=== PATIENT | female | born 1970 | race Caucasian/White ===

== ENCOUNTER 2023-01-26 07:42 | Emergency (ER) | payer OTHER, MEDICARE, MEDICAID, SELFPAY ==
--- NOTE | ~2023-01-26 | XR_ITS ---
EXAMINATION: XR RIBS, RIGHT CLINICAL INFORMATION: Trauma, right anterior rib pain COMPARISON: None TECHNIQUE: Frontal view chest and 3 views of the right ribs are obtained for a total of 4 views. FINDINGS: There is minimally displaced fracture at the anterior right 9th rib. No destructive process. Remainder of the ribs appear intact. There is prior median sternotomy with mediastinal clips and sternotomy wires. The heart is normal in size. The vascularity is normal. The lungs are clear. There is no pneumothorax, pleural reaction, or effusion. The hilar and mediastinal contours are normal. XR/XR ribs RT min 3V w CXR1V IMPRESSION: 1. Fracture anterior right 9th rib. 2. Lungs clear. No pneumothorax, pleural reaction, or effusion.
--- NOTE | ~2023-01-26 | CT_ITS ---
EXAMINATION: CT CHEST WITH CONTRAST CT ABDOMEN AND PELVIS WITH CONTRAST CLINICAL INFORMATION: Trauma, rib fracture. Assess for thoracoabdominal injury. COMPARISON: Right rib radiographs 01/26/2023 TECHNIQUE: CT chest, abdomen, and pelvis are performed using 85 mL Omnipaque 350 intravenous contrast. Coronal and sagittal reformatted images are generated on the CT workstation and uploaded to PACS. In addition, maximum intensity projection images through the lungs are also obtained on the CT workstation and uploaded to PACS. Oral contrast: no. This CT examination was performed using dose optimization techniques as appropriate, variously including the following: *Automated exposure control *Adjustment of mA and/or kV according to patient size (this includes techniques or standardized protocols for targeted exams where dose is matched to indication/reason for exam; i.e. extremities or head) *Use of iterative reconstruction technique DLP: 199 mGy-cm (chest) DLP: 425 mGy-cm (abdomen/pelvis) FINDINGS: CT CHEST LUNGS/PLEURA: No pneumothorax, pleural reaction, pulmonary contusion, or pleural effusion. The central airways are clear and there is no endobronchial lesion or bronchiectasis. Left lung shows no mass or nodule. Right lung has 3 small nodules under 4 mm: Lateral apex series 5/84, posterior lateral upper lobe series 5/151, and posterior lateral superior segment lower lobe series 5/257. There is an irregular density average dimension under 7 mm posterior upper lobe series 5/162 which appears linear reticulated on the coronal and sagittal reformatted images, possibly scarring or atelectasis. MEDIASTINUM: No mediastinal hematoma or pneumomediastinum. Thoracic aorta normal in caliber. No dissection. No pericardial effusion. CORONARY ARTERY CALCIFICATION: Visualized. Prior median sternotomy. AXILLA: No lymphadenopathy. No subcutaneous emphysema. FINDINGS: CT ABDOMEN AND PELVIS WITH CONTRAST LIVER, GALLBLADDER, AND BILIARY TREE: Liver is within normal size and smooth in contour and homogeneous. No acute traumatic abnormality. No intrahepatic ductal dilatation. The gallbladder is unremarkable with no evidence of radiopaque gallstones, gallbladder wall thickening, or obvious pericholecystic inflammatory changes. PANCREAS: Unremarkable. SPLEEN: Unremarkable. ADRENAL GLANDS: Unremarkable. KIDNEYS AND URETERS: The kidneys enhance symmetrically of normal size. There is no hydronephrosis, hydroureter, or perinephric stranding. There are some scattered nonobstructing calcifications in both renal sinuses, likely related to the vasculature rather than collecting system. BLADDER: Unremarkable. GASTROINTESTINAL TRACT: No ascites or fluid collection. No free air. No bowel obstruction. Moderate stool throughout the colon. Normal appendix. ABDOMINAL WALL: No significant hernia is appreciated. LYMPH NODES: No lymphadenopathy. VASCULAR: Atherosclerotic calcifications. No acute vascular abnormality. PELVIC VISCERA: No mass or ascites. IUD present. OSSEOUS STRUCTURES: The anterior right 9th rib fracture noted on plain film is not appreciated on the CT images. The remainder of the skeleton shows no acute abnormality. There has been prior median sternotomy. CT/CT abdomen pelvis w IV con IMPRESSION: -No acute intrathoracic or intraabdominal traumatic abnormality. -The right anterior 9th rib fracture noted on plain film is not well appreciated on CT images. Remainder skeleton unremarkable. -Small nodules right lung under 4 mm. Density under 7 mm average dimension posterior right upper lobe, possibly scarring or atelectasis. Fleischner guidelines below. Reference: The Fleischner Society recommendations for management of incidentally detected pulmonary nodules in adults age 35 and greater are based on average nodule size and patient risk category. The recommendations do not apply to lung cancer screening, patients with immunosuppression, or patients with known primary cancer. Multiple solid nodules average size 6-8 mm: Low Risk Patient: CT at 3-6 months; then consider CT at 18-24 months. High Risk Patient: CT at 3-6 months; then CT at 18-24 months.
[2023-01-26 07:47] VITALS: BP 196/71; PULSE 69; RESP 16; TEMP 36.1; O2SAT 98; BMI 22.8
--- NOTE | 2023-01-26 08:09 | PC.NURSE ---
pt is a/o x 4 no sob/melinda noted speaks in full sentences. lungs - cta. heart sounds regular. abd soft and non-tender. bxs + x 4 quads. pt aware of plan of care.
[2023-01-26 09:32] LABS: MANUAL DIFF FLAG NO
[2023-01-26 09:36] LABS: Basophils Absolute Auto 0.1 X10*3/uL (0.0-0.2); Basophils Percent Auto 0.9 % (0-2); Eosinophils Absolute Auto 0.1 X10*3/uL (0.0-0.4); Eosinophils Percent Auto 0.8 % (0-4); Hematocrit 53.1 % (37.0-47.0); Hemoglobin 17.7 g/dl (12.0-16.0); Imm Gran Abs Auto 0.03 X10*3/uL (0.00-0.03); Imm Gran Pct Auto 0.3 % (0.0-0.4); Lymphocytes Absolute Auto 1.7 X10*3/uL (1.2-4.9); Lymphocytes Percent Auto 17.9 % (20-40); Mean Corpuscular HGB Conc 33.3 g/dl (31.0-35.0); Mean Corpuscular Hemoglobin 30.8 pg (27.0-33.0); Mean Corpuscular Volume 92.5 fL (80.0-98.0); Mean Platelet Volume 10.6 fL (9.4-12.3); Monocytes Absolute Auto 0.6 X10*3/uL (0.1-1.2); Monocytes Percent Auto 6.8 % (2-11); Neutrophils Absolute Auto 6.9 x10*3/uL (2.0-8.3); Neutrophils Percent Auto 73.3 % (45-73); Platelet Count 240 X10*3/uL (160-400); Red Blood Count 5.74 X10*6/uL (4.20-5.50); Red Cell Distribution Width 13.6 % (11.0-16.0); White Blood Count 9.5 X10*3/uL (4.8-10.8)
[2023-01-26 09:45] LABS: INTERNATIONAL NORM RATIO 0.9 (0.9-1.1); Prothrombin Time 10.4 SEC (10.0-13.1)
[2023-01-26] MEDS: traMADoL HCL 50 MG TABLET PO (09:49)
[2023-01-26] MEDS: Lidocaine 4 % Patch ADH..PATCH 1 PATCH TRANSDERMA (09:49)
[2023-01-26] MEDS: 0.9 % Sodium Chloride 500 ML 999 ML IV (09:50)
[2023-01-26 09:51] LABS: Alanine Aminotransferase 34 U/L (0-31); Albumin Level 4.3 g/dL (3.5-5.0); Alkaline Phosphatase 131 U/L (39-117); Anion Gap 14 (12-20); Aspartate Amino Transferase 38 U/L (5-31); Bilirubin Direct 0.2 mg/dL (0.0-0.5); Bilirubin Total 0.6 mg/dL (0.0-1.0); Blood Urea Nitrogen 8 mg/dL (9-16); Calcium 9.3 mg/dL (8.4-10.2); Carbon Dioxide 29 mmol/L (22-29); Chloride 107 mmol/L (96-108); Estimated Glomerular Filt Rate > 60; Lipase 42 U/L (8-78); Potassium 4.6 mmol/L (3.3-5.1); Sodium 145 mmol/L (135-145); Total Protein 7.3 g/dL (6.5-8.0)
[2023-01-26 09:55] LABS: Glucose Random 59 mg/dL (60-115)
[2023-01-26 09:56] VITALS: BP 184/68; PULSE 67; RESP 16; TEMP 36.6; O2SAT 96
--- NOTE | 2023-01-26 10:00 | ED_ITS ---
HPI - General Adult General Chief complaint: General Medical Stated complaint: rib inj Time Seen by Provider: 01/26/23 08:22 Source: patient Mode of arrival: ambulatory History of Present Illness HPI narrative: 52-year-old female with past medical history of CAD, renal/liver failure, CHF, presenting to the ED complaining right-sided lower anterior rib pain s/p leaning over the back of a recliner and feeling ribs roll 3 days ago. Reports was on tippy toes and ribs were against hard part of recliner. Denies direct trauma/fall. Reports increasing pain with palpation, movement, and breathing. Reports SOB secondary to pain. Denies nausea/vomiting, abdominal pain. Denies taking anticoagulation Onset (ago): day(s) Related Data Previous Rx's Medication Instructions Recorded lidocaine 5 % topical patch 1 patch topical DAILY PRN pain #30 01/26/23 (Lidoderm) ea tramadol 50 mg tablet 50 mg PO Q8H PRN pain, severe #9 01/26/23 tabs Allergies Allergy/AdvReac Type Severity Reaction Status Date / Time ciprofloxacin [From CIPRO] Allergy Mild SWELLING Unverified 08/16/20 17:53 Penicillins [PENICILLINS] Allergy Mild SWELLING Unverified 08/16/20 17:53 Sulfa (Sulfonamide Allergy Mild SWELLING Unverified 08/16/20 17:53 Antibiotics) [SULFA(SULFONAMIDE ANTIBIOTICS)] metronidazole [Flagyl] Allergy Unknown Swelling Verified 01/26/23 07:46 penicillin G Allergy Unknown Rash Verified 01/26/23 07:46 penicillin V Allergy Unknown Rash Verified 01/26/23 07:46 sulfacetamide Allergy Unknown Rash Verified 01/26/23 07:46 From FLAGYL Allergy Mild SWELLING Uncoded 08/16/20 17:53 Review of Systems Review of Systems: Constitutional: No Fever, No Chills, No Fatigue, No Malaise ENT/Mouth: No Hearing loss, No Ear Pain, No Nasal Congestion, No sore throat, No Rhinorrhea, No Swallowing Difficulty Eyes: No Eye Pain, No Swelling, No Redness, No Vision Changes Cardiovascular:+ Chest wall Pain, + SOB, No Dyspnea on Exertion, No Orthopnea, No Edema, No Palpitations Respiratory: No Cough, No Sputum, No Dyspnea Gastrointestinal: No Nausea, No Vomiting, No Diarrhea, No Constipation, No Abdominal pain Genitourinary: No Dysuria, No Urinary Frequency, No Hematuria, No Flank Pain, No Urinary Flow Changes, No Hesitancy Musculoskeletal: No joint pain, No Myalgias, No Joint Swelling Skin: No Skin Lesions, No rash Neuro: No Weakness, No Dizziness, No Headache Yes all other systems are reviewed and are negative Constitutional: Constitutional: Reports as per [facility] Past Medical History Attestation statement: The following information was validated with the patient. Social History Social History Alcohol intake: never Smoked in Last 30 Days: No Use of substances other than those prescribed or required for medical reasons: No Advance Directives: Yes Advance Directives Information Provided: No Advance Directives on File: No Physical Exam ED Vital Signs: Vital Signs - 24 hr 01/26/23 07:47 01/26/23 09:56 01/26/23 11:22 Temperature 97.0 F 97.9 F Pulse Rate 69 67 68 Respiratory Rate 16 16 16 Blood Pressure 196/71 H 184/68 H 154/61 H Pulse Oximetry 98 96 94 Oxygen Delivery Method Room Air Room Air Room Air BMI result Body Mass Index 22.8 Const Other: in pain General: cooperative and no acute distress Orientation/consciousness: patient oriented x3 Limitations: no limitations HENMT Head: Yes normal to inspection and Yes atraumatic Ears: hearing grossly normal bilaterally General nose exam: Normal external nose present Face and sinus: Yes normal facial exam Eyes General: appearance normal, both eyes and all related structures EOM: EOMs intact bilaterally Neck Neck: Yes normal visual inspection and Yes no meningeal signs Chest Other: + tenderness to palpation to right anterior lateral lower ribs reproducing subjective complaint. No flail chest. No crepitus. No ecchymosis/erythema Chest palpation & inspection: normal inspection of the chest, no crepitus and tenderness Resp Effort & Inspection: normal respiratory effort and no respiratory distress Auscultation: clear to auscultation bilaterally, no crackles, no rhonchi and no wheezes Cardio Rate: regular rate Heart sounds: S1 normal heart sound present and S2 normal heart sound present GI Inspection: Yes normal to inspection Palpation (GI): Soft to palpation, Tenderness to palpation present (GI) in the epigastrum and in the RUQ; with no rebound tenderness, no guarding and not rigid General: Yes no CVA tenderness Back/Spine/Pelvis Back: no CVA tenderness Skin Rashes: no rashes Wounds: no wounds Neuro General: patient oriented x3, tone normal and no meningeal signs Gait exam (Neuro): Normal gait present Extrem General: Yes normal to inspection Course Course Course Narrative: XR ribs RT min 3V w CXR1V IMPRESSION: 1. Fracture anterior right 9th rib. 2. Lungs clear. No pneumothorax, pleural reaction, or effusion. ? -no leukocytosis. Hemoconcentrated. Hypoglycemic to 59 > patient given p.o. juice and crackers. Mild transaminitis 1131--CT chest w IV con/CT abdomen pelvis w IV con IMPRESSION: -No acute intrathoracic or intraabdominal traumatic abnormality. ? -The right anterior 9th rib fracture noted on plain film is not well appreciated on CT images. Remainder skeleton unremarkable. ? -Small nodules right lung under 4 mm.? Density under 7 mm average dimension posterior right upper lobe, possibly scarring or atelectasis. ?Fleischner guidelines below. ? >1132--on re-evaluation patient reports mild symptomatic improvement. Results discussed with patient including worrisome signs and symptoms and strict return precautions, and when to return to the emergency department. They verbalized understanding and feel safe for discharge at this time. Medications Administered Discontinued Medications Generic Name Dose Route Start Last Admin Trade Name Freq PRN Reason Stop Dose Admin Dextrose 25 gm 01/26/23 09:55 01/26/23 11:06 Dextrose 50 % 25 Gm/50 Ml Syringe IVPUSH 01/26/23 09:56 Not Given ONCE ONE Sodium Chloride 500 mls @ 999 mls/hr 01/26/23 09:00 01/26/23 10:25 Ns IV 01/26/23 09:30 Infused .Q31M SERG Infusion Iohexol 100 ml 01/26/23 10:12 01/26/23 10:12 Iohexol 350 Mg/Ml 100 Ml Infus..Btl IV 01/26/23 10:13 85 ml ONCE ONE Administration Lidocaine 1 patch 01/26/23 08:59 01/26/23 09:49 Lidocaine 4 % Patch Adh..Patch TRANSDERMA 01/26/23 09:00 1 patch ONCE ONE Administration Protocol Tramadol HCl 50 mg 01/26/23 08:59 01/26/23 09:49 Tramadol Hcl 50 Mg Tablet PO 01/26/23 09:00 50 mg ONCE ONE Administration Medical Decision Making Medical Decision Making [facility] Narrative: 52-year-old female with past medical history of CAD, renal/liver failure, CHF, presenting to the ED complaining right-sided lower anterior rib pain s/p leaning over the back of a recliner and feeling ribs roll 3 days ago. On exam hypertensive likely from pain, NAD/nontoxic appearing, lungs CTA, right anterior lateral lower rib tenderness reproducible on exam, RUQ abdominal tenderness noted, no rebound or guarding. Concern for rib fracture vs contusion vs intra-abdominal/intrathoracic bleeding or hematoma. Lower suspicion for ACS/PE or CHF Plan: Labs, UA, rib x-rays, +/- CT chest/abdomen/pelvis Please refer to course for remaining clinical decision making, interpretation of labs/imaging results, and discussions with consultants and/or family members. Differential Diagnosis Differential Diagnoses: The differential diagnosis associated with the presentation includes as above Admission/Observation Consideration of admission/observation: Escalation of care including admission/observation considered Lab Data [facility] Lab Attestation statement: I reviewed the patient's lab results. 01/26/23 09:24 01/26/23 09:24 Labs: Lab Results 01/26/23 01/26/23 01/26/23 Range/Units 09:24 09:24 09:24 WBC 9.5 (4.8-10.8) X10*3/uL RBC 5.74 H (4.20-5.50) X10*6/uL Hgb 17.7 H (12.0-16.0) g/dl Hct 53.1 H (37.0-47.0) % MCV 92.5 (80.0-98.0) fL MCH 30.8 (27.0-33.0) pg MCHC 33.3 (31.0-35.0) g/dl RDW 13.6 (11.0-16.0) % Plt Count 240 (160-400) X10*3/uL MPV 10.6 (9.4-12.3) fL Immature Gran % (Auto) 0.3 (0.0-0.4) % Neut % (Auto) 73.3 H (45-73) % Lymph % (Auto) 17.9 L (20-40) % [place] % (Auto) 6.8 (2-11) % Eos % (Auto) 0.8 (0-4) % Baso % (Auto) 0.9 (0-2) % Lymph # (Auto) 1.7 (1.2-4.9) X10*3/uL [place] # (Auto) 0.6 (0.1-1.2) X10*3/uL Eos # (Auto) 0.1 (0.0-0.4) X10*3/uL Baso # (Auto) 0.1 (0.0-0.2) X10*3/uL Abs Immat Gran (auto) 0.03 (0.00-0.03) X10*3/uL Absolute Neuts (auto) 6.9 (2.0-8.3) x10*3/uL Absolute Nucleated RBC 0.000 (0.0-0.012) X10*3/uL Nucleated RBC % (auto) 0.0 (0.0-0.2) /100WBC PT 10.4 (10.0-13.1) SEC INR 0.9 (0.9-1.1) Sodium 145 (135-145) mmol/L Potassium 4.6 (3.3-5.1) mmol/L Chloride 107 (96-108) mmol/L Carbon Dioxide 29 (22-29) mmol/L Anion Gap 14 (12-20) BUN 8 L (9-16) mg/dL Creatinine 0.80 (0.5-1.4) mg/dL Estim Creat Clear Calc 65.0 Estimated GFR > 60 Random Glucose 59 L* (60-115) mg/dL Calcium 9.3 (8.4-10.2) mg/dL Total Bilirubin 0.6 (0.0-1.0) mg/dL Direct Bilirubin 0.2 (0.0-0.5) mg/dL AST 38 H (5-31) U/L ALT 34 H (0-31) U/L Alkaline Phosphatase 131 H (39-117) U/L Total Protein 7.3 (6.5-8.0) g/dL Albumin 4.3 (3.5-5.0) g/dL Lipase 42 (8-78) U/L Radiology Impression Discussion of test interpretation with radiology: I have reviewed the radiologist's reading. External Record Review External record reviewed: Outpatient record Prescription Management I considered prescription management with: Pain Medication Discharge Plan Discharge Clinical Impression: Right rib fracture, Hypoglycemia Patient Disposition: Home, Self-Care Instructions: Rib Fracture (ED), Non-diabetic Hypoglycemia (ED) Additional Instructions: your blood work was reassuring, you have a fracture of your 9th rib use incentive spirometer at home Tramadol as an opiate pain medication, take only when pain is severe for the next 3 days. Lidoderm patches or numbing patches apply to painful area If symptoms persist or worsen, pain becomes unbearable, you have fever, cough, persistent worsening shortness of breath/pain return to the ED Prescriptions: New lidocaine [Lidoderm] 5 % adhesive patch,medicated 1 patch topical DAILY MDD remove after 12 hours PRN (Reason: pain) Qty: 30 0RF Rx Instructions: leave on most painful area for up to 12 hrs tramadol 50 mg tablet 50 mg PO Q8H PRN (Reason: pain, severe) Qty: 9 0RF Referrals: Adolfo Palumbo MD [Primary Care Provider] - 3 days Interventions: ED Discharge Assessment Last Done: 01/26/23 12:14 Discharge Date/Time: 01/26/23 12:14
[2023-01-26] MEDS: iohexoL 350 MG/ML 100 ML INFUS..BTL IV (10:12)
[2023-01-26 11:22] VITALS: BP 154/61; PULSE 68; RESP 16; O2SAT 94
== END 2023-01-26 12:14 | disposition home or self-care (01) ==
PROVIDERS: Physician Assistant; Emergency Provider Emergency Medicine; PCP Family Medicine
DX: S22.31XA Fracture of one rib, right side, initial encounter for closed fracture (principal); W22.03XA Walked into furniture, initial encounter; E16.2 Hypoglycemia, unspecified; R06.02 Shortness of breath; Y93.89 Activity, other specified; Y92.018 Other place in single-family (private) house as the place of occurrence of the external cause; Y99.9 Unspecified external cause status
CPT/HCPCS: 36415; 71101; 71260; 74177; 80048; 80076; 83690; 85025; 85610; 94010; 96360; 99284; Q9967

== ENCOUNTER 2023-04-15 13:58 | Emergency (ER) | payer OTHER, SELFPAY ==
[2023-04-15 15:12] VITALS: BP 177/52; PULSE 64; RESP 18; TEMP 36.1; O2SAT 98; BMI 23.6
--- NOTE | 2023-04-15 15:13 | ED.EYEPROB ---
HPI - Eye Problem General Chief complaint: Eye Problems <KAIA Anders - Last Filed: 04/15/23 15:18> Stated complaint: R eye work injury/ pressure check <KAIA Anders - Last Filed: 04/15/23 15:18> Time Seen by Provider: 04/15/23 15:19 <KAIA Anders - Last Filed: 04/15/23 15:18> Source: patient <Simeon George - Last Filed: 04/15/23 15:44> Limitations: no limitations <Simeon George - Last Filed: 04/15/23 15:44> History of Present Illness HPI Narrative: Patient states while at work today she was poked in the right eye with blocks when autistic child. Patient has known history of retinal disease in the right eye with poor vision at baseline. Patient does describe with the eye is painful unsure if she scratched cornea. 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 Patient denies any nausea vomiting headache or loss of consciousness. No other complaints at this time. Patient was sent in by urgent care to check intra-ocular pressure <Simeon George - Last Filed: 04/15/23 15:44> Related Data Home medications: Home Medications Medication Instructions Recorded Confirmed cilostazol 50 mg tablet mg PO 04/15/23 ezetimibe 10 mg tablet mg PO 04/15/23 hydrochlorothiazide 12.5 mg capsule mg PO 04/15/23 insulin degludec 100 unit/mL (3 unit subcut 04/15/23 mL) subcutaneous pen (Tresiba FlexTouch U-100 insulin) lisinopril 20 mg tablet mg PO 04/15/23 metoprolol succinate 50 mg mg PO 04/15/23 tablet,extended release 24 hr Previous Rx's Medication Instructions Recorded polymyxin B sulfate 10,000 1 drp ophthalmic (eye) TID 7 days 04/15/23 unit-trimethoprim 1 mg/mL eye drops #10 mL <KAIA Anders - Last Filed: 04/15/23 15:18> Allergies/adverse reactions: Allergies Allergy/AdvReac Type Severity Reaction Status Date / Time ciprofloxacin [From CIPRO] Allergy Mild SWELLING Verified 04/15/23 15:17 Penicillins [PENICILLINS] Allergy Mild SWELLING Verified 04/15/23 15:17 Sulfa (Sulfonamide Allergy Mild SWELLING Verified 04/15/23 15:17 Antibiotics) [SULFA(SULFONAMIDE ANTIBIOTICS)] metronidazole [Flagyl] Allergy Unknown Swelling Verified 04/15/23 15:17 penicillin G Allergy Unknown Rash Verified 04/15/23 15:17 penicillin V Allergy Unknown Rash Verified 04/15/23 15:17 sulfacetamide Allergy Unknown Rash Verified 04/15/23 15:17 From FLAGYL Allergy Mild SWELLING Uncoded 08/16/20 17:53 <KAIA Anders - Last Filed: 04/15/23 15:18> Review of Systems Review of Systems: General: No fever, no chills Ophthalmology: Right eye pain watery discharge ENT: No sore throat Muscle skeletal: No malaise, no back pain, no neck pain, no extremity pain Neuro: Slight headache no loss of consciousness no dizziness Skin: No rash <Simeon George - Last Filed: 04/15/23 15:44> [facility] Past Medical History Attestation statement: The following information was validated with the patient. <Simeon George - Last Filed: 04/15/23 15:44> Social History Social History: Social History Alcohol intake: never Patient Tobacco Use Status: Never used Tobacco Advance Directives: No Advance Directives Information Provided: No <KAIA Anders - Last Filed: 04/15/23 15:18> Physical Exam Vital Signs: Vital Signs: Last Vital Signs Temp 97.0 F 04/15/23 15:12 Pulse 64 04/15/23 15:12 Resp 18 04/15/23 15:12 BP 177/52 H 04/15/23 15:12 Pulse Ox 98 04/15/23 15:12 O2 Del Method Room Air 04/15/23 15:12 BMI result Body Mass Index 23.6 <KAIA Anders - Last Filed: 04/15/23 15:18> Vital Signs: Last Vital Signs Temp 97.0 F 04/15/23 15:12 Pulse 64 04/15/23 15:12 Resp 18 04/15/23 15:12 BP 177/52 H 04/15/23 15:12 Pulse Ox 98 04/15/23 15:12 O2 Del Method Room Air 04/15/23 15:12 BMI result Body Mass Index 23.6 <Simeon George - Last Filed: 04/15/23 15:44> General appearance: Awake, alert, cooperative, in no acute distress Skin: Warm, dry, no rash Eyes: Patient has a prosthetic eye in the left eye. Right eye pupils equal round reactive to light and accommodation extraocular movements are intact. 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 Plan: fluorosceine exam, IOP <KAIA Anders - Last Filed: 04/15/23 15:18> Medications Administered Discontinued Medications Generic Name Dose Route Start Last Admin Trade Name Freq PRN Reason Stop Dose Admin Fluorescein Sodium 1 strip 04/15/23 15:14 04/15/23 15:20 Fluorescein Sodium Strip EYE-RIGHT 04/15/23 15:15 1 strip ONCE ONE Administration Tetracaine HCl 1 drop 04/15/23 15:14 04/15/23 15:20 Tetracaine Hcl/Pf 0.5% Oph Naomi 4 Ml Drops EYE-RIGHT 04/15/23 15:15 1 drop ONCE ONE Administration <KAIA Anders - Last Filed: 04/15/23 15:18> Medications Administered Discontinued Medications Generic Name Dose Route Start Last Admin Trade Name Freq PRN Reason Stop Dose Admin Fluorescein Sodium 1 strip 04/15/23 15:14 04/15/23 15:20 Fluorescein Sodium Strip EYE-RIGHT 04/15/23 15:15 1 strip ONCE ONE Administration Tetracaine HCl 1 drop 04/15/23 15:14 04/15/23 15:20 Tetracaine Hcl/Pf 0.5% Oph Naomi 4 Ml Drops EYE-RIGHT 04/15/23 15:15 1 drop ONCE ONE Administration <Simeon George - Last Filed: 04/15/23 15:44> Medical Decision Making Medical Decision Making MDM Narrative: Right eye corneal lesion Right eye contusion Right eye glaucoma Patient has known visual deficits secondary to retinal disease secondary to diabetes. 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 Patient was sent in to check intra-ocular pressures of the right eye/question corneal abrasion. Right eye anesthetized tetracaine intra-ocular pressure was 17, 18 tolerated well Positive fluorescein uptake in positive corneal abrasion No foreign body noted <Simeon George - Last Filed: 04/15/23 15:44> Discharge Plan Discharge Clinical Impression: Corneal abrasion <KAIA Anders - Last Filed: 04/15/23 15:18> Patient Disposition: Home, Self-Care <KAIA Anders - Last Filed: 04/15/23 15:18> Instructions: Corneal Abrasion (ED) <KAIA Anders - Last Filed: 04/15/23 15:18> Additional Instructions: Is you have a longstanding history eye disorders follow-up with Ophthalmology is highly recommended. Eyedrops as directed Return if symptoms worsen <KAIA Anders Last Filed: 04/15/23 15:18> Prescriptions: New polymyxin B sulf-trimethoprim 10,000 unit- 1 mg/mL drops 1 drp ophthalmic (eye) TID 7 Days Qty: 10 0RF Rx Instructions: while awake; do not exceed 6 doses in 24 hours No Action ezetimibe 10 mg tablet PO metoprolol succinate 50 mg tablet extended release 24 hr PO cilostazol 50 mg tablet PO hydrochlorothiazide 12.5 mg capsule PO lisinopril 20 mg tablet PO insulin degludec [Tresiba FlexTouch U-100] 100 unit/mL (3 mL) insulin pen subcut <KAIA Anders Last Filed: 04/15/23 15:18> Stand Alone Forms: Work/School Release <KAIA Anders - Last Filed: 04/15/23 15:18> Interventions: ED Discharge Assessment Last Done: 04/15/23 15:46 <KAIA Anders Last Filed: 04/15/23 15:18> Discharge Date/Time: 04/15/23 15:47 <KAIA Anders - Last Filed: 04/15/23 15:18>
[2023-04-15] MEDS: Tetracaine HCl/PF 0.5% Oph Sol 4 ML DROPS 1 DROP EYE-RIGHT (15:20)
[2023-04-15] MEDS: Fluorescein Sodium STRIP 1 STRIP EYE-RIGHT (15:20)
--- NOTE | 2023-04-15 15:23 | PC.NURSE ---
pt medicated per MAR by provider at bedside
== END 2023-04-15 15:47 | disposition home or self-care (01) ==
LOC: HO.ED 15:43
PROVIDERS: Emergency Provider Emergency Medicine; PCP Family Medicine
DX: S05.01XA Injury of conjunctiva and corneal abrasion without foreign body, right eye, initial encounter (principal); X58.XXXA Exposure to other specified factors, initial encounter; Y93.9 Activity, unspecified; Y92.9 Unspecified place or not applicable; Y99.9 Unspecified external cause status; Z79.899 Other long term (current) drug therapy
CPT/HCPCS: 99282; 99283

== ENCOUNTER 2024-01-11 11:21 | Outpatient (AMB) | payer OTHER, MEDICARE, MEDICAID, SELFPAY ==
--- NOTE | 2024-01-11 11:38 | MHC.OFFWIV ---
Intake Vital Signs 01/11/24 11:40 Height 5 ft 1 in BP 132/68 Blood Pressure Location Rt brachial Position Sitting Pulse 77 Pulse Source Pulse Oximeter Pulse Oximetry (%) 97 Oxygen Delivery Method Room Air Intake Visit Reasons: EP RT leg fell at home Intake Note: Pt is here c/o right leg pain. Pt states she fell on Thursday and had a lot of things falls on top of her. Patient Tobacco Use Status: Never used Tobacco Allergies ciprofloxacin [From CIPRO] Allergy (Mild, Verified 01/11/24 11:40) SWELLING Penicillins [PENICILLINS] Allergy (Mild, Verified 01/11/24 11:40) SWELLING Sulfa (Sulfonamide Antibiotics) [SULFA(SULFONAMIDE ANTIBIOTICS)] Allergy (Mild, Verified 01/11/24 11:40) SWELLING metronidazole [Flagyl] Allergy (Unknown, Verified 01/11/24 11:40) Swelling penicillin G Allergy (Unknown, Verified 01/11/24 11:40) Rash penicillin V Allergy (Unknown, Verified 01/11/24 11:40) Rash sulfacetamide Allergy (Unknown, Verified 01/11/24 11:40) Rash From FLAGYL Allergy (Mild, Uncoded 01/11/24 11:40) SWELLING HPI HPI Comments History of Present Illness Details Patient presents to the walkin today for sick visit complaining of right knee pain after injury 2 days ago fell from sitting position and twisted the knee pinpoint tenderness to palpation distal medial right knee, pain with standing difficulty walking [facility] Social History Alcohol intake: never Patient Tobacco Use Status: Never used Tobacco Review of Systems Const All systems reviewed & are unremarkable except as noted in HPI and below Physical Exam Vital Signs: Last Vital Signs Pulse 77 01/11/24 11:40 BP 132/68 01/11/24 11:40 Pulse Ox 97 01/11/24 11:40 Oxygen Delivery Method Room Air 01/11/24 11:40 General: awake, alert, oriented. Answers questions appropriately. Fully engaged in examination. Skin: warm, dry, intact HEENT: Normocephalic. Hearing intact. Cardiac: External chest normal in appearance. Respiratory: No cough, audible wheezing or stridor. Abdomen: without gross distension. MS: No obvious swelling or deformities. Tenderness to palpation right distal medial knee decreased range of motion secondary to pain RLE pink, warm, dry Neurological: Oriented to person, place, time and situation. Thought process intact. Psychiatric: Appropriate mood and affect. Good judgment and insight. Results Reviewed Results Reviewed: XR right knee ordered and independently reviewed: no fracture or dislocation Assessment & Plan Assessment & Plan (1) Right knee sprain: Code(s): S83.91XA - Sprain of unspecified site of right knee, initial encounter Plan Right knee sprain: Follow up with orthopedics, referral placed Knee brace applied Crutches with teaching provided Rest, ice, elevate. tylenol/motrin as needed for pain. Return here for any new or worsening symptoms Orders: Referrals Orthopedics Referral S83.91XA - Sprain of unspecified site of right knee, initial encounter Coding Level of Care Code Est Pt Level 4 (01916) Diagnoses Right knee sprain S83.91XA
[2024-01-11 11:40] VITALS: BP 132/68; PULSE 77; O2SAT 97
== END 2024-01-11 12:52 | disposition home or self-care (01) ==
PROVIDERS: PCP Family Medicine; Visit Provider Registered Nurse Emergency
DX: S83.91XA Sprain of unspecified site of right knee, initial encounter (principal)
CPT/HCPCS: 99213

== ENCOUNTER 2024-01-11 11:57 | Outpatient (REF) | payer OTHER, MEDICARE, MEDICAID, SELFPAY ==
--- NOTE | ~2024-01-11 | XR_ITS ---
EXAMINATION: XR KNEE, RIGHT CLINICAL INFORMATION: Right knee pain. COMPARISON: None available. TECHNIQUE: Four views of the right knee. FINDINGS: No acute fracture or dislocation. No significant joint space narrowing or marginal osteophytes. No osseous erosion. No joint effusion. Surgical clips within the medial soft tissues. XR/XR knee RT 4V IMPRESSION: No acute osseous abnormality.
== END 2024-01-11 11:58 | disposition home or self-care (01) ==
LOC: HO.HMGCX 11:57
PROVIDERS: PCP Family Medicine; Visit Provider Registered Nurse Emergency
DX: M25.561 Pain in right knee (principal)
CPT/HCPCS: 73564

== ENCOUNTER 2025-11-15 15:15 | Outpatient (AMB) | payer OTHER, MEDICARE, MEDICAID, SELFPAY ==
[2025-11-15 15:20] VITALS: BP 138/60; PULSE 71; TEMP 36.7; O2SAT 95; BMI 23.2
--- NOTE | 2025-11-15 15:20 | AM.OFFWIN_ITS ---
Intake Vital Signs 11/15/25 15:20 Height 5 ft 1 in Weight 123 lb BMI 23.2 BP 138/60 Blood Pressure Location Rt brachial Position Sitting Pulse 71 Pulse Source Pulse Oximeter Temp 98.1 F Temp Source Oral Pulse Oximetry (%) 95 Oxygen Delivery Method Room Air Intake Visit Reasons: EP Rolled RT ankle Intake Note: pt presents with RT ankle pain, minimally bruised and swelling 3 days ago after slipping off step stool while painting Patient Tobacco Use Status: Never used Tobacco Allergies ciprofloxacin (From CIPRO) Allergy (Mild, Verified 01/11/24 11:40) SWELLING Penicillins (PENICILLINS) Allergy (Mild, Verified 01/11/24 11:40) SWELLING Sulfa (Sulfonamide Antibiotics) (SULFA(SULFONAMIDE ANTIBIOTICS)) Allergy (Mild, Verified 01/11/24 11:40) SWELLING metronidazole (Flagyl) Allergy (Unknown, Verified 01/11/24 11:40) Swelling bupropion (From Wellbutrin) Adverse Reaction (Severe, Verified 11/15/25 15:25) Anaphylaxis Do you need a note to return to daycare/school/sports/work: No HPI HPI Comments History of Present Illness Details History of Present Illness - The patient is a 55 year old female pr esenting with a right ankle injury. - The injury occurred on Thursday when she slipped off a step stool while painting and rolled her ankle. - She reports the ankle hurts badly. - She states that she has a constant sha rp pain in the inner ankle on the right. - She has pain when she moves it and whe n she bears weight on it. - She has been icing it and taking tylen ol for her pain. - She denies numbness, tingling, calf pa in, or knee pain. Physical Exam General: Cooperative, healthy appearing, comfortable, no acute distress and well developed Orientation: Patient oriented x3 Respiratory: Normal respiratory effort and able to speak in complete sentences. Clear to auscultation bilaterally Cardiovascular: Regular rate and rhythm. Normal S1 and S2. Pulses are 2+ on the LE bilaterally. Skin: No rashes or lesions noted. No ecchymosis or erythema noted. Neuro: Sensation is intact. Extremities: Swelling noted medially to the right ankle. Normal pulses and capillary refill noted. No deformity noted. TTP of the right medial malleolus. No TTP of metatarsals or lateral malleolus. N TTP of the calcaneous or Achilles tendon. Ambulates with a steady gait. Strength is 5/5 on the LE. Patient was informed and verbally consented to the use of an ambient scribe for clinic note documentation during this visit. [facility] Social History Alcohol intake: never Patient Tobacco Use Status: Never used Tobacco Review of Systems Const All systems reviewed & are unremarkable except as noted in HPI and below Physical Exam Vital Signs: Last Vital Signs Temp 98.1 F 11/15/25 15:20 Pulse 71 11/15/25 15:20 BP 138/60 11/15/25 15:20 Pulse Ox 95 11/15/25 15:20 Oxygen Delivery Method Room Air 11/15/25 15:20 BMI result Body Mass Index 23.2 Results Reviewed Results Reviewed: will review the xray in the office Assessment & Plan Assessment & Plan (1) Right ankle sprain: Code(s): S93.401A - Sprain of unspecified ligament of right ankle, initial encounter Qualifiers: Encounter type: initial encounter Involved ligament of ankle: unspecified ligament Qualified Code(s): S93.401A - Sprain of unspecified ligament of right ankle, initial encounter Plan Most likely Right Ankle Sprain vs fx plan - The patient likely has an ankle sprain. - An x-ray of the right ankle will be obtained to rule out a fracture. - A splint will be provided to the patient after the x-ray. -rest, ice and elevation of the right ankle - tylenol or motrin as needed for pain - can refer to ortho if needed - follow up with PCP Orders: Orders XR ankle RT min 3V Today M25.571 - Pain in right ankle and joints of right foot Coding Level of Care Code Est Pt Level 4 (10722) Diagnoses Sprain of right ankle, unspecified ligament, initial encounter S93.401A Encounter type: initial encounter Involved ligament of ankle: unspecified ligament
--- OUTSIDE RECORDS SUMMARY | 2025-11-15 20:18 | XMS_ITS | Continuity of Care Document ---
Author Organization [facility], Main Office Address [address] [place] [address] Care Team Providers Care Turner Off Name Role Phone FIDENCIO BOWMAN Field Mechanical Meter Tester THIERNO VIDALES Haul Truck Driver [facility] Princess sepulveda Surgeon Rene CARVALHO Vascular Surgeon MARY HAYDEN General Surgeon GITA MAAT Hog Tender TISHA PAINTING OTHER ANIYAH REDD Audit Tech [phone] CATINA HORTA Primary Care Provider [phone] TAMIKA PEÑA Breast Surgeon [phone] Assessment No assessment recorded. Plan of Treatment Reminders Order Date Submit Date Provider Last Modified By Organization Details Last Modified Time Details Appointments None recorde d. Lab albumin /creati nine, mass ratio, urine 2024 025 THOMAS [facility] (Centralized Electronic Ordering - All Locations), Patient Can Go To The Location Of Their Choice, [id number] 16:07:13 HbA1c (hemogl obin A1c), blood 2024 025 THOMAS [facility] (Centralized Electronic Ordering - All Locations), Patient Can Go To The Location Of Their Choice, [id number] 16:07:14 BMP, serum or plasma 2024 025 THOMAS [facility] (Centralized Electronic Ordering - All Locations), Patient Can Go To The Location Of Their Choice, [id number] 16:07:13 CBC w/ auto diff 2024 025 THOMAS [facility] (Centralized Electronic Ordering - All Locations), Patient Can Go To The Location Of Their Choice, [address] 16:07:12 Referral podiatr ist referra l - for annual diabeti c foot exams 2024 025 [facility], [address], [place], [address], 13:16:43 ophthal mologis t referra l - was followi verona >5yrs ago. 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 Needs re-eval uation. 2024 025 [facility], [address], [place], [address], 10:01:47 gynecol ogist referra l - Patient to schedul e 2024 025 [email or web address] Not available 09:31:03 Procedures None recorde d. Surgeries None recorde d. Imaging MAMMO, screeni verona, aideater al 2024 025 [email or web address] [facility], [address], [place], [address], 09:31:03 Medication Orders None recorde d. Patient TargetsNo targets recorded. 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 Needs re-evaluation. Referring Physician: Vandana Ayers [facility], Encounter Date: 10/02/2025 Pumper Head Referral for Type 1 diabetes mellitus for annual diabetic foot exams Referring Physician: Vandana Ayers [facility], Encounter Date: 10/02/2025 Results Created Date Observation Date Name Description Value Unit Range Abnormal Flag Note LastModifiedBy Organization Detail LastModifiedTime 10/18/20 25 10/19/2025 CBC WITH DIFFE RENTI AL/PL ATELE T WBC 7.3 x10e3 /uL 3.4-10 .8 normal Not Available [facility] ([facility]) [address], [place], [address], 10/19/2025 16:07:12 10/18/20 25 10/19/2025 CBC WITH DIFFE RENTI AL/PL ATELE T RBC 5.27 x10e6 /uL 3.77-5 .28 normal Not Available [facility] ([facility]) [address] [place], [address], 10/19/2025 16:07:12 10/18/20 25 10/19/2025 CBC WITH DIFFE RENTI AL/PL ATELE T hemoglobin 17.0 g/dL 11.1-1 5.9 above high normal Not Available [facility] ([facility]) [address], [place], [address], 10/19/2025 16:07:12 10/18/20 25 10/19/2025 CBC WITH DIFFE RENTI AL/PL ATELE T hematocrit 51.2 % 34.0-4 6.6 above high normal Not Available [facility] ([facility]) [address] [place], [address], 10/19/2025 16:07:12 10/18/20 25 10/19/2025 CBC WITH DIFFE RENTI AL/PL ATELE T MCV 97 fL 79-97 normal Not Available [facility] ([facility]) [address] [place], [address], 10/19/2025 16:07:12 10/18/20 25 10/19/2025 CBC WITH DIFFE RENTI AL/PL ATELE T MCH 32.3 pg 26.6-3 3.0 normal Not Available [facility] ([facility]) [address], [place], [address], 10/19/2025 16:07:12 10/18/20 25 10/19/2025 CBC WITH DIFFE RENTI AL/PL ATELE T MCHC 33.2 g/dL 31.5-3 5.7 normal Not Available [facility] ([facility]) [address] [place], [address], 10/19/2025 16:07:12 10/18/20 25 10/19/2025 CBC WITH DIFFE RENTI AL/PL ATELE T RDW 12.7 % 11.7-1 5.4 Not Available [facility] ([facility]) [address] [place], [address], 10/19/2025 16:07:12 10/18/20 25 10/19/2025 CBC WITH DIFFE RENTI AL/PL ATELE T platelets 220 x10e3 /uL 150-45 0 normal Not Available [facility] ([facility]) [address] [place], [address], 10/19/2025 16:07:12 10/18/20 25 10/19/2025 CBC WITH DIFFE RENTI AL/PL ATELE T neutrophils 59 % not estab. normal Not Available [facility] ([facility]) [address] [place], [address], 10/19/2025 16:07:12 10/18/20 25 10/19/2025 CBC WITH DIFFE RENTI AL/PL ATELE T lymphs 30 % not estab. normal Not Available [facility] ([facility]) [address], [place], [address], 10/19/2025 16:07:12 10/18/20 25 10/19/2025 CBC WITH DIFFE RENTI AL/PL ATELE T monocytes 8 % not estab. normal Not Available [facility] ([facility]) [address] [place], [address], 10/19/2025 16:07:12 10/18/20 25 10/19/2025 CBC WITH DIFFE RENTI AL/PL ATELE T eos 2 % not estab. normal Not Available [facility] ([facility]) [address] [place], [address], 10/19/2025 16:07:12 10/18/20 25 10/19/2025 CBC WITH DIFFE RENTI AL/PL ATELE T basos 1 % not estab. normal Not Available [facility] ([facility]) [address], [place], [address], 10/19/2025 16:07:12 10/18/20 25 10/19/2025 CBC WITH DIFFE RENTI AL/PL ATELE T immature cells AUTO BODY WORKER Not Available [facility] ([facility]) [address] [place], [address], 10/19/2025 16:07:12 10/18/20 25 10/19/2025 CBC WITH DIFFE RENTI AL/PL ATELE T neutrophils (absolute) 4.4 x10e3 /uL 1.4-7. 0 normal Not Available [facility] ([facility]) [address] [place], [address], 10/19/2025 16:07:12 10/18/20 25 10/19/2025 CBC WITH DIFFE RENTI AL/PL ATELE T lymphs (absolute) 2.2 x10e3 /uL 0.7-3. 1 normal Not Available [facility] ([facility]) [address] [place], [address], 10/19/2025 16:07:12 10/18/20 25 10/19/2025 CBC WITH DIFFE RENTI AL/PL ATELE T monocytes(ab solute) 0.6 x10e3 /uL 0.1-0. 9 normal Not Available [facility] ([facility]) [address], [place], [address], 10/19/2025 16:07:12 10/18/20 25 10/19/2025 CBC WITH DIFFE RENTI AL/PL ATELE T eos (absolute) 0.1 x10e3 /uL 0.0-0. 4 normal Not Available [facility] ([facility]) [address], [place], [address], 10/19/2025 16:07:12 10/18/20 25 10/19/2025 CBC WITH DIFFE RENTI AL/PL ATELE T baso (absolute) 0.1 x10e3 /uL 0.0-0. 2 normal Not Available [facility] ([facility]) [address] [place], [address], 10/19/2025 16:07:12 10/18/20 25 10/19/2025 CBC WITH DIFFE RENTI AL/PL ATELE T immature granulocytes 0 % not estab. Not Available [facility] ([facility]) [address], [place], [address], 10/19/2025 16:07:12 10/18/20 25 10/19/2025 CBC WITH DIFFE RENTI AL/PL ATELE T immature grans (abs) 0.0 x10e3 /uL 0.0-0. 1 Not Available [facility] ([facility]) [address], [place], [address], 10/19/2025 16:07:12 10/18/20 25 10/19/2025 CBC WITH DIFFE RENTI AL/PL ATELE T NRBC AUTO BODY WORKER Not Available [facility] ([facility]) [address], [place], [address], 10/19/2025 16:07:12 10/18/20 25 10/19/2025 CBC WITH DIFFE ROSALES AL/PL ATELE T hematology comments: AUTO BODY WORKER Not Available [facility] ([facility]) [address], [place], [address], 10/19/2025 16:07:12 10/18/20 25 10/19/2025 BASIC METAB OLIC PANEL (8) glucose 94 mg/dL 70-99 normal Not Available [facility] ([facility]) [address], [place], [address], 10/19/2025 16:07:13 10/18/20 25 10/19/2025 BASIC METAB OLIC PANEL (8) BUN 15 mg/dL 6-24 normal Not Available [facility] ([facility]) [address], [place], [address], 10/19/2025 16:07:13 10/18/20 25 10/19/2025 BASIC METAB OLIC PANEL (8) creatinine 0.91 mg/dL 0.57-1 .00 normal Not Available [facility] ([facility]) [address], [place], [address], 10/19/2025 16:07:13 10/18/20 25 10/19/2025 BASIC METAB OLIC PANEL (8) eGFR 75 mL/mi n/1.7 3 >59 normal Not Available [facility] ([facility]) [address], [place], [address], 10/19/2025 16:07:13 10/18/20 25 10/19/2025 BASIC METAB OLIC PANEL (8) BUN/creatini ne ratio 16 9-23 normal Not Available [facility] ([facility]) [address], [place], [address], 10/19/2025 16:07:13 10/18/20 25 10/19/2025 BASIC METAB OLIC PANEL (8) sodium 139 mmol/ L 134-14 4 normal Not Available [facility] ([facility]) [address] [place], [address], 10/19/2025 16:07:13 10/18/20 25 10/19/2025 BASIC METAB OLIC PANEL (8) potassium 3.6 mmol/ L 3.5-5. 2 normal Not Available [facility] ([facility]) [address] [place], [address], 10/19/2025 16:07:13 10/18/20 25 10/19/2025 BASIC METAB OLIC PANEL (8) chloride 100 mmol/ L 96-106 normal Not Available [facility] ([facility]) [address] [place], [address], 10/19/2025 16:07:13 10/18/20 25 10/19/2025 BASIC METAB OLIC PANEL (8) carbon dioxide, total 28 mmol/ L 20-29 normal Not Available [facility] ([facility]) [address] [place], [address], 10/19/2025 16:07:13 10/18/20 25 10/19/2025 BASIC METAB OLIC PANEL (8) calcium 9.5 mg/dL 8.7-10 .2 normal Not Available [facility] ([facility]) [address] [place], [address], 10/19/2025 16:07:13 10/18/20 25 10/19/2025 ALBUM IN/CR EATIN INE RATIO ,URIN E creatinine, urine 47.2 mg/dL not estab. normal Not Available [facility] ([facility]) [address] [place], [address], 10/19/2025 16:07:13 10/18/20 25 10/19/2025 ALBUM IN/CR EATIN INE RATIO ,URIN E albumin, urine 17.3 ug/mL not estab. Not Available [facility] ([facility]) [address], [place], [address], 10/19/2025 16:07:13 10/18/20 25 10/19/2025 ALBUM IN/CR EATIN INE RATIO ,URIN E alb/creat ratio 37 mg/g_ creat 0-29 above high normal Mahogany l: 0 - 29 Moder ately incre ased: 30 - 300 Sever doni incre ased: >300 Not Available [facility] ([facility]) [address], [place], [address], 10/19/2025 16:07:13 10/18/20 25 10/19/2025 HEMOG LOBIN A1C hemoglobin A1C 8.6 % 4.8-5. 6 above high normal Predi abete s: 5.7 - 6.4 Diabe mikal: >6.4 Glyce kellee contr ol for adult s with diabe mikal: <7.0 Not Available [facility] ([facility]) [address], [place], [address], 10/19/2025 16:07:14 11/15/20 25 11/15/2025 XR, ankle No observ ation record ed. [facility] [address], [place], [address], 11/15/2025 16:58:30 Result Notes None recorded. Problems Name Problem SNOMED Code Status Onset Date Resolution Date Notes Provider Name and Address Organization Details Recorded Time Cataract 548378151 Active Not Available [facility] 3 16:41:08 Choriore tinitis 68803639 Active Not Available [facility] 16:41:08 Chronic kidney disease stage 1 927875775 Active Not Available [facility] 16:41:08 Tobacco dependen ce syndrome 06887739 Completed 09/27/2024 Catina Horta MD [address] [address], [place], [address] , [facility] 4 11:50:24 Type 1 diabetes mellitus 41748880 Completed 05/26/2019 Removal Reason: not specific Jackelin Chen jacquelyn [facility] 9 09:14:34 Cellulit is of digit 07199880 Completed 09/19/2017 REBEKA Franco, [facility] 7 09:00:03 History of dysplasi a of cervix 047201808 Active Not Available [facility] 3 16:41:08 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 Completed 09/27/2024 Catina Horta MD [address], [place], [address] , [facility] 4 11:50:02 Chronic rhinitis 46884153 Active Not Available [facility] 3 16:41:08 Disease conditio n determin ation, uncontro lled 64685019 Completed 09/02/2022 Catina Horta MD [address], [place], [address] , [facility] 2 07:45:22 Heart murmur 61028747 Active Not Available [facility] 3 16:41:08 Acute upper respirat ory infectio n 49207182 Completed 09/19/2017 REBEKA Franco, [facility] 7 09:00:07 Burn of foot 97353776 Completed 05/15/2017 Nelsy valladares [facility] 7 09:48:34 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 Active Not Available [facility] 3 16:41:08 Sinusiti s 51104997 Completed 05/15/2017 Nelsy valladares [facility] 7 09:48:40 Closed fracture finger metacarp al 850382602 Completed 09/02/2022 Catina Horta MD [address], [facility] [place], [address] , [facility] 2 07:45:31 Legal blindnes s 80020782 Active 2000 Not Available [facility] 3 16:41:08 Acute maxillar y sinusiti s 16328113 Completed 200706/20/2014 RECORDED 08/03/20 08 11:25AM BY MARGARET CONLEY ON/ADDEN DUM Maria Del Rosario REBEKA Garcia, [facility] 6 15:02:58 Allergic rhinitis 37596733 Completed 200706/20/2014 RECORDED 08/03/20 08 11:25AM BY MARGARET CONLEY ON/ADDEN DUM Maria Del Rosario REBEKA Garcia, [facility] 6 15:02:58 Infectiv e hepatiti s immuniza tion Completed 200706/20/2014 RECORDED 08/03/20 08 4:42PM BY MAC JOSUE, NURSE VISIT REBEKA Franco, [facility] 6 15:02:58 Acute maxillar y sinusiti s 99924693 Completed 200707/10/2014 RECORDED 08/03/20 08 11:25AM BY MARGARET CONLEY ON/ADDEN DUM Maria Del Rosario REBEKA Garcia, [facility] 6 15:02:58 Allergic rhinitis 20804050 Completed 200707/10/2014 RECORDED 08/03/20 08 11:25AM BY MARGARET CONLEY ON/ADDEN DUM Maria Del Rosario REBEKA Garcia, [facility] 6 15:02:58 Infectiv e hepatiti s immuniza tion Completed 200707/10/2014 RECORDED 08/03/20 08 4:42PM BY MAC JOSUE, NURSE VISIT Maria Del Rosario [place], [place] null, [facility] 6 15:02:58 Acute sinusiti s 73595926 Completed 200706/20/2014 RECORDED 11/20/20 08 1:51PM BY CHENG MALIKATI ON/ADDEN DUM Maria Del Rosario [place], [place] null, [facility] 6 15:02:58 Acute sinusiti s 15630029 Completed 200707/10/2014 RECORDED 11/20/20 08 1:51PM BY CHENG MALIKATI ON/ADDEN DUM Maria Del Rosario [place], [place] null, [facility] 6 15:02:58 Knee pain Completed 200706/20/2014 RECORDED 11/27/20 08 10:19AM BY CHENG CONLEYATI ON/ADDEN DUM Maria Del Rosario [place], [place] null, [facility] 6 15:02:58 Knee pain Completed 200707/10/2014 RECORDED 11/27/20 08 10:19AM BY REBEKA CLINE ANNOTATI ON/ADDEN DUM Maria Del Rosario [place], [place] null, [facility] 6 15:02:58 Active or passive immuniza tion Completed 200806/20/2014 RECORDED 11/13/20 09 2:31PM BY AL DARNELL MD, OFFICE VISIT Maria Del Rosario [place], [place] null, [facility] 6 15:02:58 Active or passive immuniza tion Completed 200807/10/2014 RECORDED 11/13/20 09 2:31PM BY AL DARNELL MD, OFFICE VISIT Maria Del Rosario [place], [place] null, [facility] 6 15:02:58 Abdomina l pain 31972119 Completed 201206/20/2014 RECORDED 05/13/20 13 10:47AM BY BENITO SWEET I ANNOTATI ON/ADDEN DUM Maria Del Rosario [place], REBEKA null, [facility] 6 15:02:58 Acute lymphade nitis 50333128 Completed 201206/20/2014 RECORDED 05/13/20 13 10:47AM BY BENITO SWEET I ANNOTATI ON/ADDEN DUM Maria Del Rosario [place], REBEKA null, [facility] 6 15:02:58 Otitis media 13235452 Completed 201206/20/2014 RECORDED 05/13/20 13 10:47AM BY BENITO SWEET I ANNOTATI ON/ADDEN DUM Maria Del Rosario [place], REBEKA null, [facility] 6 15:02:58 Acute pharyngi tis 345744468 Completed 201206/20/2014 RECORDED 05/13/20 13 10:47AM BY BENITO SWEET I ANNOTATI ON/ADDEN DUM Maria Del Rosario [place] REBEKA abarca, [facility] 6 15:02:58 Screenin g for malignan t neoplasm of breast Completed 201206/20/2014 RECORDED 05/13/20 13 10:47AM BY BENITO SWEET I ANNOTATI ON/ADDEN DUM Maria Del Rosario [place] REBEKA abarca, [facility] 6 15:02:58 Cellulit is 821213787 Completed 201206/20/2014 RECORDED 05/13/20 13 10:47AM BY BENITO SWEET I ANNOTATI ON/ADDEN DUM Maria Del Rosario [place], REBEKA null, [facility] 6 15:02:58 Screenin g for malignan t neoplasm of cervix Completed 201206/20/2014 RECORDED 05/13/20 13 10:47AM BY BENITO SWEET I ANNOTATI ON/ADDEN DUM Maria Del Rosario [place], [place] null, [facility] 6 15:02:58 Chest pain 19687551 Completed 201206/20/2014 RECORDED 05/13/20 13 10:47AM BY BENITO SWEET I, ANNOTATI ON/ADDEN DUM Maria Del Rosario [place], [place] null, [facility] 6 15:02:58 Cough 85029592 Completed 201206/20/2014 RECORDED 05/13/20 13 10:47AM BY BENITO SWEET I, ANNOTATI ON/ADDEN DUM Maria Del Rosario [place], [place] null, [facility] 6 15:02:58 Lesion of ulnar nerve 042822754 Completed 201206/20/2014 RECORDED 05/13/20 13 10:47AM BY BENITO SWEET I ANNOTATI ON/ADDEN DUM Maria Del Rosario [place], [place] null, [facility] 6 15:02:58 Epidermo id cyst of skin 648882074 Completed 201206/20/2014 RECORDED 05/13/20 13 10:47AM BY BENITO SWEET I, ANNOTATI ON/ADDEN DUM Maria Del Rosario [place], [place] null, [facility] 6 15:02:58 Periapic al abscess without sinus tract Completed 201206/20/2014 RECORDED 05/13/20 13 10:46AM BY BENITO SWEET I ANNOTATI ON/ADDEN DUM Maria Del Rosario [place], [place] null, [facility] 6 15:02:58 Dental caries 80045356 Completed 201206/20/2014 RECORDED 05/13/20 13 10:47AM BY BENITO SWEET I, ANNOTATI ON/ADDEN DUM Maria Del Rosario [place], [place] null, [facility] 6 15:02:58 Dysuria 54191452 Completed 201206/20/2014 RECORDED 05/13/20 13 10:46AM BY MARGARET DIEZ ON/ADDEN DUM Maria Del Rosario REBEKA Garcia, [facility] 6 15:02:58 Essdinora l hyperten justo 53299592 Completed 201206/20/2014 RECORDED 05/13/20 13 10:46AM BY CHENG DIEZATI ON/ADDEN DUM Jackelin Chen jacquelyn, [facility] 4 21:53:34 Dysfunct ion of eustachi an tube 70818537 Completed 201206/20/2014 RECORDED 05/13/20 13 10:46AM BY MARGARET DIEZ ON/ADDEN DUM Maria Del Rosario REBEKA Garcia, [facility] 6 15:02:58 Pain in eye Completed 201206/20/2014 STORY: PROSTHES IS/ NEEDS SURGERY/ [place]; RECORDED 05/13/20 13 10:46AM BY MARGARET DIEZ ON/ADDEN DUM Maria Del Rosario REBEKA Garcia [facility] 6 15:02:58 Follow-u p encounte r Completed 201206/20/2014 RECORDED 05/13/20 13 10:46AM BY MARGARET DIEZ ON/ADDEN DUM Maria Del Rosario REBEKA Garcia [facility] 6 15:02:58 Injury of knee 615551896 Completed 201206/20/2014 RECORDED 05/13/20 13 10:46AM BY MARGARET DIEZ ON/ADDEN DUM Maria Del Rosario TylorREBEKA Keith [facility] 6 15:02:58 Herpes zoster 8691551 Completed 201206/20/2014 RECORDED 05/13/20 13 10:46AM BY MARGARET DIEZ ON/ADDEN DUM Maria Del Rosario [place] REBEKA abarca null, [facility] 6 15:02:58 Lymphade nopathy 98864300 Completed 201206/20/2014 RECORDED 05/13/20 13 10:46AM BY BENITO SWEET I ANNOTATI ON/ADDEN DUM Maria Del Rosario [place], REBEKA null, [facility] 6 15:02:58 Migraine 99906591 Completed 201206/20/2014 RESOLVED DATE: 05/13/20 13; RECORDED 05/13/20 13 10:46AM BY CHENG DIEZATI ON/ADDEN DUM Maria Del Rosario [place] REBEKA abarca, [facility] 6 15:02:58 Pain of joint of wrist 009906957 Completed 201206/20/2014 RECORDED 05/13/20 13 10:46AM BY CHENG DIEZATI ON/ADDEN DUM Maria Del Rosario [place] REBEKA abarca null, [facility] 6 15:02:58 Pain of joint 46249360 Completed 201206/20/2014 RECORDED 05/13/20 13 10:47AM BY BENITO SWEET I ANNOTATI ON/ADDEN DUM Maria Del Rosario [place] REBEKA abarca null, [facility] 6 15:02:58 Pain in limb 39771521 Completed 201206/20/2014 RECORDED 05/13/20 13 10:47AM BY BENITO SWEET I ANNOTATI ON/ADDEN DUM Maria Del Rosario [place] ttosREBEKA null, [facility] 6 15:02:58 Palpitat ions 26943094 Completed 201206/20/2014 RECORDED 05/13/20 13 10:47AM BY BENITO SWEET I ANNOTATI ON/ADDEN DUM Maria Del Rosario [place], REBEKA null, [facility] 6 15:02:58 Cellulit is of digit 40888495 Completed 201206/20/2014 RECORDED 05/13/20 13 10:46AM BY BENITO SWEET I ANNOTATI ON/ADDEN DUM Maria Del Rosario [place] REBEKA abarca, [facility] 7 09:00:03 Peptic ulcer 53527686 Completed 201206/20/2014 RECORDED 05/13/20 13 10:46AM BY BENITO SWEET I ANNOTATI ON/ADDEN DUM Maria Del Rosario [place] REBEKA abarca, [facility] 6 15:02:58 Proteinu isrrael 37592173 Completed 201206/20/2014 RECORDED 05/13/20 13 10:47AM BY BENITO SWEET I ANNOTATI ON/ADDEN DUM Maria [facility] [place] [facility] 15:[facility] Gastroes ophageal reflux disease 519599430 Completed 201206/20/2014 RECORDED 05/13/20 13 10:47AM BY CHENG DIEZATI ON/ADDEN DUM Maria Del Ros[facility] 6 15:02:58 Chronic rhinitis 89669558 Completed 201206/20/2014 RECORDED 05/13/20 13 10:47AM BY CHENG DIEZATI ON/ADDEN DUM Maria Del Rosario TylorREBEKA Keith, [facility] 6 15:02:58 Adult health examinat ion Completed 201206/20/2014 RECORDED 05/13/20 13 10:46AM BY BENITO SWEET I ANNOTATI ON/ADDEN DUM Maria Del Rosario [place]-REBEKA Augustin, [facility] 6 15:02:58 Type 1 diabetes mellitus 65957608 Completed 201206/20/2014 RECORDED 05/13/20 13 10:47AM BY BENITO SWEET I ANNOTATI ON/ADDEN DUM Jackelin Chen null, [facility] 9 09:14:34 Uncontro lled type 1 diabetes mellitus 872175817 Completed 201206/20/2014 RECORDED 05/13/20 13 10:46AM BY BENITO SWEET I ANNOTATI ON/ADDEN DUM Maria Del Rosario [place] ttosREBEKA null, [facility] 6 15:02:58 Uncontro lled type 2 diabetes mellitus 812099269 Completed 201206/20/2014 RESOLVED DATE: 05/13/20 13; RECORDED 05/13/20 13 10:47AM BY BENITO SWEET I ANNOTATI ON/ADDEN DUM Maria Del Rosario [place] REBEKA abarca, [facility] 6 15:02:58 Increase d frequenc y of urinatio n 464170195 Completed 201206/20/2014 RECORDED 05/13/20 13 10:47AM BY BENITO SWEET I ANNOTATI ON/ADDEN DUM Maria Del Rosario [place] REBEKA abarca null, [facility] 6 15:02:58 [employer] hopsia 11965093 Completed 201206/20/2014 RECORDED 05/13/20 13 10:47AM BY BENITO SWEET I ANNOTATI ON/ADDEN DUM Maria Del Rosario [place] REBEKA abarca null, [facility] 6 15:02:58 Abdomina l pain 90112599 Completed 201207/10/2014 RECORDED 05/13/20 13 10:47AM BY BENITO SWEET I ANNOTATI ON/ADDEN DUM Maria Del Rosario [place] REBEKA abarca, [facility] 6 15:02:58 Acute lymphade nitis 93226600 Completed 201207/10/2014 RECORDED 05/13/20 13 10:47AM BY BENITO SWEET I ANNOTATI ON/ADDEN DUM Maria Del Rosario Tylor-Ma REBEKA abarca, [facility] 6 15:02:58 Otitis media [id number] Completed 201207/10/2014 RECORDED 05/13/20 13 10:47AM BY CHENG DIEZATI ON/ADDEN DUM Maria Del Rosario Tylor-Ma ttos, REBEKA null, [facility] 6 15:02:58 Acute pharyngi tis [id number] Completed 201207/10/2014 RECORDED 05/13/20 13 10:47AM BY BENITO SWEET I ANNOTATI ON/ADDEN DUM Maria Del Rosario Tylor-Ma ttos, REBEKA null, [facility] 6 15:02:58 Screenin g for malignan t neoplasm of breast Completed 201207/10/2014 RECORDED 05/13/20 13 10:47AM BY CHENG DIEZATI ON/ADDEN DUM Maria Del Rosario Tylor-Ma ttos, REBEKA null, [facility] 6 15:02:58 Cellulit is [id number] Completed 201207/10/2014 RECORDED 05/13/20 13 10:47AM BY BENITO SWEET I ANNOTATI ON/ADDEN DUM Maria Del Rosario Tylor-Ma ttos, REBEKA null, [facility] 6 15:02:58 Screenin g for malignan t neoplasm of cervix Completed 201207/10/2014 RECORDED 05/13/20 13 10:47AM BY CHENG DIEZATI ON/ADDEN DUM Maria Del Rosario Tylor-Ma ttos, REBEKA null, [facility] 6 15:02:58 Chest pain [id number] Completed 201207/10/2014 RECORDED 05/13/20 13 10:47AM BY BENITO SWEET I ANNOTATI ON/ADDEN DUM Maria Del Rosario Tylor-Ma ttos, REBEKA null, [facility] 6 15:02:58 Cough [id number] Completed 201207/10/2014 RECORDED 05/13/20 13 10:47AM BY BENITO SWEET I, ANNOTATI ON/ADDEN DUM Maria Del Rosario Tylor-Ma ttos, [place] null, [facility] 6 15:02:58 Lesion of ulnar nerve [id number] Completed 201207/10/2014 RECORDED 05/13/20 13 10:47AM BY BENITO SWEET I, ANNOTATI ON/ADDEN DUM Maria Del Rosario Tylor-Ma ttos, [place] null, [facility] 6 15:02:58 Epidermo id cyst of skin [id number] Completed 201207/10/2014 RECORDED 05/13/20 13 10:47AM BY BENITO SWEET I, ANNOTATI ON/ADDEN DUM Maria Del Rosario Tylor-Ma ttos, [place] null, [facility] 6 15:02:58 Periapic al abscess without sinus tract Completed 201207/10/2014 RECORDED 05/13/20 13 10:46AM BY BENITO SWEET I, ANNOTATI ON/ADDEN DUM Maria Del Rosario Tylor-Ma ttos, REBEKA null, [facility] 6 15:02:58 Dental caries [id number] Completed 201207/10/2014 RECORDED 05/13/20 13 10:47AM BY BENITO SWEET I, ANNOTATI ON/ADDEN DUM Maria Del Rosario Tylor-Ma ttos, [place] null, [facility] 6 15:02:58 Dysuria [id number] Completed 201207/10/2014 RECORDED 05/13/20 13 10:46AM BY BENITO SWEET I, ANNOTATI ON/ADDEN DUM Maria Del Rosario Tylor-Ma ttos, [place] null, [facility] 6 15:02:58 Dysfunct ion of eustachi an tube [id number] Completed 201207/10/2014 RECORDED 05/13/20 13 10:46AM BY BENITO SWEET I ANNOTATI ON/ADDEN DUM Maria Del Rosario Tylor-Ma ttos, [place] null, [facility] 6 15:02:58 Pain in eye Completed 201207/10/2014 STORY: PROSTHES IS/ NEEDS SURGERY/ [place]; RECORDED 05/13/20 13 10:46AM BY MARGARET DIEZ ON/ADDEN DUM Maria Del Rosario Tylor-REBEKA Augustin, [facility] 6 15:02:58 Follow-u p encounte r Completed 201207/10/2014 RECORDED 05/13/20 13 10:46AM BY MARGARET DIEZ ON/ADDEN DUM Maria Del Rosario REBEKA Garcia, [facility] 6 15:02:58 Injury of knee [id number] Completed 201207/10/2014 RECORDED 05/13/20 13 10:46AM BY MARGARET DIEZ ON/ADDEN DUM Maria Del Rosario REBEKA Garcia, [facility] 6 15:02:58 Herpes zoster [id number] Completed 201207/10/2014 RECORDED 05/13/20 13 10:46AM BY MARGARET DIEZ ON/ADDEN DUM Maria Del Rosario REBEKA Garcia, [facility] 6 15:02:58 Lymphade nopathy [id number] Completed 201207/10/2014 RECORDED 05/13/20 13 10:46AM BY MARGARET DIEZ ON/ADDEN DUM Maria Del Rosario REBEKA Garcia, [facility] 6 15:02:58 Migraine [id number] Completed 201207/10/2014 RESOLVED DATE: 05/13/20 13; RECORDED 05/13/20 13 10:46AM BY MARGARET DIEZ ON/ADDEN DUM Maria Del Rosario TylorREBEKA Keith, [facility] 6 15:02:58 Pain of joint of wrist 786800827 Completed 201207/10/2014 RECORDED 05/13/20 13 10:46AM BY BENITO SWEET I ANNOTATI ON/ADDEN DUM Maria Del Rosario Tylor-Ma REBEKA abarca, [facility] 6 15:02:58 Pain of joint 90757449 Completed 201207/10/2014 RECORDED 05/13/20 13 10:47AM BY BENITO SWEET I ANNOTATI ON/ADDEN DUM Maria Del Rosario Tylor-Ma ttREBEKA chase, [facility] 6 15:02:58 Pain in limb 82071393 Completed 201207/10/2014 RECORDED 05/13/20 13 10:47AM BY BENITO SWEET I ANNOTATI ON/ADDEN DUM Maria Del Rosario Tylor-Ma REBEKA abarca, [facility] 6 15:02:58 Palpitat ions 87127184 Completed 201207/10/2014 RECORDED 05/13/20 13 10:47AM BY BENITO SWEET I ANNOTATI ON/ADDEN DUM Maria Del Rosario Tylor-Ma REBEKA abarca, [facility] 6 15:02:58 Peptic ulcer [id number] Completed 201207/10/2014 RECORDED 05/13/20 13 10:46AM BY BENITO SWEET I ANNOTATI ON/ADDEN DUM Maria Del Rosario Tylor-Ma REBEKA abarca, [facility] 6 15:02:58 Proteinu isrrael [id number] Completed 201207/10/2014 RECORDED 05/13/20 13 10:47AM BY BENITO SWEET I ANNOTATI ON/ADDEN DUM Maria Del Rosario Tylor-Ma REBEKA abarca, [facility] 6 15:02:58 Gastroes ophageal reflux disease [id number] Completed 201207/10/2014 RECORDED 05/13/20 13 10:47AM BY BENITO SWEET I ANNOTATI ON/ADDEN DUM Maria Del Rosario Tylor-Ma REBEKA abarca, [facility] 6 15:02:58 Type 1 diabetes mellitus [id number] Completed 201207/10/2014 RECORDED 05/13/20 13 10:47AM BY CHENG DIEZATI ON/ADDEN DUM Jackelin Chen null, [facility] 9 09:14:34 Uncontro lled type 1 diabetes mellitus [id number] Completed 201207/10/2014 RECORDED 05/13/20 13 10:46AM BY CHENG DIEZATI ON/ADDEN DUM Maria Del Rosario Tylor-Rebeka abarca [place] null, [facility] 6 15:02:58 Uncontro lled type 2 diabetes mellitus [id number] Completed 201207/10/2014 RESOLVED DATE: 05/13/20 13; RECORDED 05/13/20 13 10:47AM BY MARGARET DIEZ ON/ADDEN DUM Maria Del Rosario Tylor-REBEKA Augustin, [facility] 6 15:02:58 Increase d frequenc y of urinatio n [id number] Completed 201207/10/2014 RECORDED 05/13/20 13 10:47AM BY MARGARET DIEZ ON/ADDEN DUM Maria Del Rosario Tylor-Rebeka abarca [place] null, [facility] 6 15:02:58 Metamorp hopsia [id number] Completed 201207/10/2014 RECORDED 05/13/20 13 10:47AM BY CHENG DIEZATI ON/ADDEN DUM Maria Dle Rosario Tylor-Rebeka abarca [place] null, [facility] 6 15:02:58 Influenz a vaccine needed [id number] 06 Completed 201206/20/2014 RECORDED 11/08/20 13 2:24PM BY IFTIKHAR PAETL MA ANNOTATI ON/ADDEN DUM Maria Del Rosario Tylor-Ma REBEKA abarca null, [facility] 6 15:02:58 Enthesop athy of hip region 05742407 Completed 201206/20/2014 RECORDED 11/08/20 13 2:24PM BY IFTIKHAR PATEL MA, ANNOTATI ON/ADDEN DUM Maria Del Rosario Tylor-REBEKA Augustin, [facility] 6 15:02:58 Pain of hip region 75446011 Completed 201206/20/2014 RECORDED 11/08/20 13 2:24PM BY IFTIKHAR PATEL MA, ANNOTATI ON/ADDEN DUM Maria Del Rosario Tylor-Ma REBEKA abarca, [facility] 6 15:02:58 Pre-surg brigid evaluati on Completed 201206/20/2014 IMPRESSI ON: IONA IS AT LOW CARDIOPU LMONARY RISK FOR THIS SURGERY. SHE IS AT RISK FOR POOR HEALING GIVEN HER POORLY CONTROLL ED DIABETES . TAKE HALF DOSE LANTUS IN THE MORNING IF SURGERY IS AFTER 8AM. IF EARLIER SURGERY TAKE NO LANTUS. NO BOLUS INSULIN MORNING OF SURGERY. PERIOP AND POSTOP HER SUGARS SHOULD BE CLOSELY MONITORE D AND ADJUSTED PER FACILITY PROTOCOL . NO MOTRIN OR ASPIRIN 1 WK BEFORE SURGERY THIS NOTE WILL BE AMENDED ONCE LABS RETURN; RECORDED 11/08/20 13 2:23PM BY IFTIKHAR PATEL MA, ANNOTATI ON/ADDEN DUM Maria Del Rosario Tylor-REBEKA Augustin, [facility] 6 15:02:58 Influenz a vaccine needed [id number] 06 Completed 201207/10/2014 RECORDED 11/08/20 13 2:24PM BY IFTIKHAR PATEL MA, ANNOTATI ON/ADDEN DUM Maria Del Rosario Tylor-REBEKA Augustin, [facility] 6 15:02:58 Enthesop athy of hip region 76082194 Completed 201207/10/2014 RECORDED 11/08/20 13 2:24PM BY IFTIKHAR PATLE MA, ANNOTATI ON/ADDEN DUM Maria Del Rosario Tylor-REBEKA Augustin, [facility] 6 15:02:58 Pain of hip region 47855894 Completed 201207/10/2014 RECORDED 11/08/20 13 2:24PM BY IFTIKHAR PATEL MA, ANNOTATI ON/REBEKA Agrawal, [facility] 6 15:02:58 Pre-surg brigid mckeonati on Completed 201207/10/2014 WANDAI ON: IONA IS AT LOW CARDIOPU LMONARY RISK FOR THIS SURGERY. SHE IS AT RISK FOR POOR HEALING GIVEN HER POORLY CONTROLL ED DIABETES . TAKE HALF DOSE LANTUS IN THE MORNING IF SURGERY IS AFTER 8AM. IF EARLIER SURGERY TAKE NO LANTUS. NO BOLUS INSULIN MORNING OF SURGERY. PERIOP AND POSTOP HER SUGARS SHOULD BE CLOSELY MONITORE D AND ADJUSTED PER FACILITY PROTOCOL . NO MOTRIN OR ASPIRIN 1 WK BEFORE SURGERY THIS NOTE WILL BE AMENDED ONCE LABS RETURN; RECORDED 11/08/20 13 2:23PM BY IFTIKHAR PATEL MA, ANNOTATI ON/REBEKA Agrawal, [facility] 6 15:02:58 Injury of foot 800612606 Completed 201706/23/2018 Nelsy valladares, [facility] 8 13:32:31 Pain of shoulder region 29315358 Completed 201709/27/2024 Catina Horta MD [address], [place], [address] , [facility] 4 11:50:07 Tendinit is of left shoulder [id number] 82769 Completed 201709/27/2024 With labral tear Catina Horta MD [address], [address] , [facility] 4 11:50:10 Peripher al vascular disease 918302573 Active 2018 Not Available [facility] 3 16:41:08 Mixed hyperlip idemia 879896813 Active 2018 Not Available [facility] 3 16:41:08 Myocardi al infarcti on 01973634 Completed 201809/02/2022 Catina Horta MD [address], [place], [address] , [facility] 2 07:44:28 Heart failure 29551838 Active 2018 Not Available [facility] 3 16:41:08 Cardiomy opathy 24054415 Active 2018 Not Available [facility] 3 16:41:08 Prolifer ative retinopa thy due to type 1 diabetes mellitus 83640275885 101 Active 2018 Not Available [facility] 3 16:41:08 Liver enzymes outside referenc e range 762804414 Active 2018 Not Available [facility] 3 16:41:08 Pain in right lower limb 125900113 Completed 202109/27/2024 Catina Horta MD [address], [place], [address] , [facility] 4 11:49:48 Pain in left lower limb 918572515 Completed 202109/27/2024 Catina Horta MD [address], [place], [address] , [facility] 4 11:49:46 History of myocardi al infarcti on 609355748 Active 2021 Not Available [facility] 3 16:41:08 History of diabetic foot ulcer 65590163590 039016 Active 2021 Not Available [facility] 3 16:41:08 Ex-smoke r 7139241 Active 2023 Catina Horta MD [address], [place], [address] , [facility] 4 11:50:29 Hyperten sive renal disease 85492080 Active 2023 Jackelin Chen null, [facility] 21:53:47 Problem Notes None recorded. Procedures Surgical History Date Name Laterality Status Provider Name and Address Organization Details Recorded Time 09/27/20 24 Diabetic Foot Exam (Monofilament) completed Catina Horta MD [address], [place], [address], [facility] 09/27/2024 12:06:54 12/22/19 23 Diabetic Foot Exam (Monofilament) completed Catina Horta MD [address], [place], [address], [facility] 12/22/2022 14:30:11 03/13/20 21 Most Recent Mammogram completed Maria Del Rosario arce MA [facility] 10/14/2022 14:17:59 03/13/20 21 Mammogram screening completed Maria Del Rosario arce MA [facility] 10/14/2022 14:18:17 07/18/20 19 repair of artery using vein graft completed Camilla Orlando [facility] 07/21/2019 09:34:30 07/18/20 19 Cardiac Surgery completed Anjelica Barajas MA [facility] 10/25/2021 09:22:29 01/29/20 19 Angioplasty completed Anjelica Barajas MA [facility] 10/25/2021 09:22:29 08/30/20 15 Incise finger tendon sheath completed Maria Del Rosario arce MA [facility] 12/11/2015 15:06:12 11/30/19 12 Eye Surgery completed Maria Del Rosario arce MA [facility] 12/11/2015 15:08:06 05/30/20 10 Breast Biopsy completed Anjelica Barajas MA [facility] 10/25/2021 09:22:29 06/08/20 01 Caesarean Section completed Anjelica Barajas MA [facility] 10/25/2021 09:22:29 10/01/20 00 Eye Surgery completed Anjelica Barajas MA [facility] 10/25/2021 09:22:29 Carpal tunnel surgery completed Anjelica Barajas MA [facility] 10/25/2021 09:22:29 Anesth arthroscopy of hip completed Anjelica Barajas MA [facility] 10/25/2021 09:22:29 Revise ulnar nerve at elbow completed Anjelica Barajas MA [facility] 10/25/2021 09:22:29 Imaging Results None recorded. Procedure Notes None recorded. Medical Equipment None Reported. Allergies Allergen ID Allergen Name Allergen Category Reaction Reaction Severity Criticality Documentation Date Start Date Code Code System Note Provider Name and Address Organization Details Recorded Time Substance with sulfonami de structure and antibacte rial mechanism of action (substanc e) medicatio n respirato ry distress Not available Not available 02/16/2015 88304 8003 SNOMED Natty Palacios, [facility] [address] [address] [place] [address] 5 10:23:10 04112 Silvadene medicatio n itching Not available Not available 12/11/2015 95223 6 RxNorm REBEKA Wallace [facility] 6 15:04:46 40484 ciproflox acin medicatio n Not available Not available Not available 01/07/20192015 2551 RxNorm LC Rodgers [facility] 9 14:44:12 18612 penicilli n V potassium medicatio n Not available Not available Not available 01/07/2019201519 5 RxNorm REBEKA Wallace [facility] 2 13:51:09 29474 bupropion hydrochlo ride medicatio n Not available Not available Not available 01/07/2019201520 4 RxNorm Other react ions and sever ities : 'Unkn own'. LC Rodgers [facility] 9 14:44:12 65352 metronida zole medicatio n anaphylax is severe Not available 01/07/20192015 6922 RxNorm Nohemi Carlsonenzie LC, [facility] 9 14:44:12 35681 silver sulfadiaz ine medicatio n itching Not available Not available 01/07/2019 9793 RxNorm Nohemi LC Suazo, [facility] 9 14:44:12 67269 morphine medicatio n nausea Not available Not available 10/30/20212020 7052 RxNorm REBEKA Wallace, [facility] 1 10:17:20 8909 Cipro medicatio n Not available Not available Not available 06/13/201413985 3 RxNorm REBEKA Wallace, [facility] 2 13:51:01 8910 Flagyl medicatio n Not available Not available Not available 06/13/201479389 6 RxNorm NOAH Montiel [address] [address], [facility] [place], [address], [facility] 5 10:23:10 8911 Product containin g penicilli n (product) medicatio n respirato ry distress Not available Not available 06/13/2014 82967 8001 SNOMED NOAH Montiel [address] [address], [facility] [place], [address], [facility] 5 10:23:10 8912 Wellbutri n medicatio n Not available Not available Not available 06/13/2014 05971 RxNorm Catina Horta MD [address] [address], [facility] [place], [address], [facility] 4 11:49:00 Medications Name Sig Start Date Stop Date Status Note LastModified by Organization Details LastModified Time hydrocodo ne/acetam inophen 5-325 mgtabs active Not Available Not Available Not Available tramadol hcl 50 mg tabs active Not Available Not Available Not Available freestyle mikal lite Test BS three times daily 03/31 completed Not Available Not Available Not Available multivita min tablet Take 1 tablet every day by oral route. active Not Available Not Available No t Available cyclobenz aprine 10 mg tablet Q 8HRS PRN SPASM active Not Available Not Available No t Available furosemid e 40 mg tablet Take 1 tablet every day by oral route for 30 days. 10/30 completed Not Available Not Available Not Available azithromy paty 250 mg capsule DAILY 10/12 completed RECORDED 10/15/20 11 11:24AM BY AL DARNELL MD, MEDICATI ON AUTO-JOHN CTIVATIO N;2 PILLS FIRST DAY THEN ONE QD X 4 DAYS Not Available Not Available Not Available Mirena 21 mcg/24 hr (up to 8 years) 52 mg intrauter ine device Take 1 device every day by intraute rine route. active Not Available Not Available No t Available atorvasta tin 40 mg tablet Take 1 tablet every day by oral route for 90 days. 05/23 completed Not Available Not Available Not Available methocarb madonna 500 mg tablet Take 2 tablets 4 times a day by oral route as needed for 10 days. active Not Available Not Available No t Available silver sulfadiaz ine 1 % topical cream 03/30 completed Not Available Not Available Not Available budesonid e 32 mcg/actua tion nasal spray,aer osol 03/30 completed Not Available Not Available Not Available BD Alcohol Swabs active Not Available Not Available Not Available acetamino phen 325 mg tablet Take 2 tablets every 6 hours by oral route. 10/30 completed Not Available Not Available Not Available prednison e 10 mg tablet DAILY 05/24 completed Not Available Not Available Not Available doxycycli ne hyclate 100 mg capsule TAKE 1 CAPSULE BY MOUTH TWICE A DAY FOR 10 DAYS 12/08 completed Not Available Not Available Not Available insulin glargine (U-100) 100 unit/mL subcutane ous solution Inject 18 units every day by subcutan eous route. 05/24 completed Not Available Not Available Not Available clindamyc in HCl 300 mg capsule TAKE 1 CAPSULE (ORAL) 3 TIMES PER DAY FOR 10 DAYS FOR INFECTIO N 08/08 completed Not Available Not Available Not Available cetirizin e 10 mg tablet 10 mg by oral route. 11/05 completed Not Available Not Available Not Available azithromy paty 250 mg tablet TAKE 2 TABLETS (500 MG) BY ORAL ROUTE ONCE DAILY FOR 1 DAY THEN 1 TABLET (250 MG) BY ORAL ROUTE ONCE DAILY FOR 4 DAYS 05/24 completed Not Available Not Available Not Available ibuprofen 800 mg tablet Take 1 tablet every 6 hours by oral route as needed for 5 days. 03/30 completed Not Available Not Available Not Available Glucagon Emergency Kit 1 mg solution for injection Take 1 mg by injectio n route for 90 days. active Not Available Not Available No t Available cilostazo l 50 mg tablet TAKE 1 TAB BY MOUTH TWO TIMES A DAY active Not Available Not Available No t Available nicotine (polacril ex) 2 mg gum 10/25 completed Not Available Not Available Not Available tizanidin e 4 mg tablet Take 1 tablet every 8 hours by oral route for 15 days. 10/25 completed Not Available Not Available Not Available amiodaron e 200 mg tablet 09/10 completed Not Available Not Available Not Available benzonata te 200 mg capsule TAKE 1 CAPSULE (ORAL) 3 TIMES PER DAY NEEDED - COUGH FOR 7 DAYS 09/02 completed Not Available Not Available Not Available metoprolo l succinate ER 50 mg tablet,ex tended release 24 hr Take 1 tablet every day by oral route as directed for 30 days. active Not Available Not Available No t Available valacyclo vir 1 gram tablet THREE TIMES DAILY 04/01 completed RECORDED 04/27/20 12 4:13PM BY AL DARNELL MD, MEDICATI ON AUTO-JOHN CTIVATIO N;PT HAS THIS FROM [facility] STARTING MED ON MARCH 21 Not Available Not Available Not Available hydrocodo ne 5 mg-acetam inophen 500 mg capsule FOUR TIMES DAILY, NEEDED 08/26 completed RECORDED 11/06/20 09 1:26PM BY AL DARNELL MD, MEDICATI ON AUTO-JOHN CTIVATIO N; Not Available Not Available Not Available clarithro mycin 500 mg tablet 03/30 completed Not Available Not Available Not Available hydrocodo ne 5 mg-acetam inophen 325 mg tablet one tab THREE TIMES DAILY 11/05 completed Not Available Not Available Not Available Claritin 10 mg tablet Take 1 tablet every day by oral route. 05/24 completed Not Available Not Available Not Available Nolvia Bui 28 gauge 11/19 completed Not Available Not Available Not Available lisinopri l 20 mg tablet TAKE ONE TABLET BY MOUTH ONCE DAILY EVERY EVENING active Not Available Not Available No t Available prednison e 20 mg tablet 03/30 completed Not Available Not Available Not Available prednison e 5 mg tablet TAKE 1 TABLET BY MOUTH EVERY DAY WITH MEALS FOR 5 DAYS 09/02 completed Not Available Not Available Not Available moxifloxa paty 400 mg tablet DAILY 08/29 completed RECORDED 09/19/20 10 10:24AM BY AL DARNELL MD, MEDICATI ON AUTO-JOHN CTIVATIO N; Not Available Not Available Not Available clindamyc in HCl 150 mg capsule TAKE 1 CAPSULE BY MOUTH EVERY 8 HOURS UNTIL FINISHED 05/30 completed Not Available Not Available Not Available promethaz ine 6.25 mg-codein e 10 mg/5 mL syrup 05/11 completed Not Available Not Available Not Available Advair Diskus 100 mcg-50 mcg/dose powder for inhalatio n TWO TIMES DAILY 09/02 completed RECORDED 09/19/20 10 10:24AM BY AL DARNELL MD, MEDICATI ON AUTO-JOHN CTIVATIO N;RINSE MOUTH AFTER USE Not Available Not Available Not Available clopidogr el 75 mg tablet Take 1 tablet every day by oral route for 30 days. 10/30 completed Not Available Not Available Not Available aspirin 81 mg tablet,de layed release Take 1 tablet every day by oral route for 30 days. active Not Available Not Available No t Available tramadol 50 mg tablet TAKE 1 TABLET BY MOUTH EVERY 8 HOURS NEEDED FOR SEVERE PAIN 10/02 completed Not Available Not Available Not Available oxycodone -acetamin ophen 5 mg-325 mg tablet 03/30 completed Not Available Not Available Not Available rifampin 300 mg capsule 03/30 completed Not Available Not Available Not Available Fluticaso ne Propionat e (Inhal) 50 mcg/BLIST inhl powd DAILY 2012 active RECORDED 09/05/20 13 3:26PM BY AL DARNELL MD, MARGARET ON/ADD DUM; Not Available Not Available Not Available hydromorp edgard 2 mg tablet 09/10 completed Not Available Not Available Not Available lorazepam 0.5 mg tablet TAKE 1 TABLET BY MOUTH 90 MINUTES PRIOR TO APPT 05/30 completed Not Available Not Available Not Available methocarb madonna 750 mg tablet TAKE 1 TABLET BY MOUTH 4 TIMES A DAY FOR 5 DAYS 01/20 completed Not Available Not Available Not Available Humalog U-100 Insulin 100 unit/mL subcutane ous solution Please specify directio ns, refills and quantity 05/30 completed Not Available Not Available Not Available benzonata te 100 mg capsule TAKE 1 CAPSULE BY MOUTH EVERY 8 HOURS 05/30 completed Not Available Not Available Not Available doxycycli ne monohydra te 100 mg capsule TAKE 1 CAPSULE BY MOUTH TWICE A DAY FOR 10 DAYS 09/29 completed Not Available Not Available Not Available hydrocodo ne 7.5 mg-acetam inophen 325 mg tablet 03/30 completed Not Available Not Available Not Available cephalexi n 500 mg capsule TAKE 1 CAPSULE BY MOUTH THREE TIMES A DAY FOR 5 DAYS TIL ALL TAKEN 09/29 completed Not Available Not Available Not Available oseltamiv ir 75 mg capsule TAKE 1 CAPSULE BY MOUTH TWICE A DAY FOR 5 DAYS 12/22 completed Not Available Not Available Not Available hydrocodo ne 7.5 mg-acetam inophen 750 mg tablet Q 6HRS PRN PAIN 08/16 completed RECORDED 08/16/20 09 11:27AM BY AL DARNELL MD, MARGARET ON/MARISABEL DUM; Not Available Not Available Not Available diphenhyd ramine 25 mg tablet Take 1 tablet every day by oral route. 05/23 completed Not Available Not Available Not Available lisinopri l 10 mg tablet TAKE ONE TABLET BY MOUTH ONCE DAILY 01/09 completed Not Available Not Available Not Available lidocaine 5 % topical patch APPLY 1 PATCH BY TOPICAL ROUTE ONCE DAILY (MAY WEAR UP TO 12HOURS. ) 11/19 completed not covered; pt purchase d OTC Not Available Not Available Not Available polymyxin B sulfate 10,000 unit-trim ethoprim 1 mg/mL eye drops INSTILL 1 DROP INTO THE EYES 3 TIMES A DAY FOR 7 DAYS WHILE AWAKE, DO NOT EXCEED 6 DOSES IN 24 HOURS 06/10 completed Not Available Not Available Not Available hydrochlo rothiazid e 12.5 mg capsule TAKE ONE CAPSULE BY MOUTH ONCE DAILY 2024 active Not Available Not Available Not Avai lable codeine 10 mg-guaife nesin 100 mg/5 mL Syrup Take 10 mL by oral route. 03/30 completed Not Available Not Available Not Available pseudoeph edrine-co deine-GG 30 mg-10 mg-100 mg/5 mL oral syrup 03/30 completed Not Available Not Available Not Available isomethep tene-dich loralphen -acetamin ophen 65 mg-100 mg-325 mg capsule THREE TIMES DAILY, NEEDED 10/07 completed RECORDED 10/07/20 11 8:32AM BY SIRENA VAZQUEZ MA, OFFICE VISIT; Not Available Not Available Not Available cephalexi n 500 mg tablet FOUR TIMES DAILY 08/26 completed RECORDED 11/06/20 09 1:26PM BY AL DARNELL MD, MEDICATI ON AUTO-JOHN CTIVATIO N; Not Available Not Available Not Available etodolac 400 mg tablet active Not Available Not Available Not Available codeine 10 mg-guaife nesin 100 mg/5 mL oral liquid Take 10 mL every 4 hours by oral route as directed for 4 days. 2014 active Not Available Not Available Not Avai lable Longs Adult Low Strength ASA 81 mg tablet,de layed release Take 1 tablet every day by oral route. 05/24 completed Not Available Not Available Not Available lisinopri l 5 mg tablet Take 1 {tbl} by oral route. 03/30 completed Not Available Not Available Not Available Novolog U-100 Insulin aspart 100 unit/mL subcutane ous solution active Not Available Not Available Not Available Nasonex 50 mcg/actua tion [place] DAILY 03/18 completed RECORDED 03/18/20 10 3:13PM BY MARGARET BURGESS ON/ADDEN DUM;EACH NOSTRIL Not Available Not Available Not Available Tylenol-C odeine #3 300 mg-30 mg tablet EVERY 6 HOURS NEEDED 02/17 completed RECORDED 02/28/20 11 1:22PM BY ARY ORELLANA ON AUTO-JOHN CTIVATIO N; Not Available Not Available Not Available ibuprofen 600 mg tablet Take 1 tablet 3 times a day by oral route for 30 days. 03/30 completed Not Available Not Available Not Available cefuroxim e axetil 500 mg tablet 03/30 completed Not Available Not Available Not Available levofloxa paty 500 mg tablet DAILY 05/11 completed Not Available Not Available Not Available albuterol sulfate HFA 90 mcg/actua tion aerosol inhaler INHALE 2 PUFFS EVERY 4 HOURS BY INHALATI ON ROUTE NEEDED 01/09 completed Not Available Not Available Not Available colchicin e 0.6 mg tablet Take 1 tablet every day by oral route as directed for 30 days. 05/30 completed Not Available Not Available Not Available morphine 15 mg immediate release tablet Take 1 tablet as needed by oral route for 3 days. 10/30 completed Not Available Not Available Not Available fluticaso ne propionat e 50 mcg/actua tion nasal spray,carolyne pension INSTILL 1 SPRAY INTO EACH NOSTRIL 2 TIMES PER DAY FOR ALLERGY SYMPTOMS 11/19 completed Not Available Not Available Not Available lisinopri l 2.5 mg tablet Take 1 tablet every day by oral route as directed for 30 days. 09/10 completed Not Available Not Available Not Available doxycycli ne hyclate 100 mg tablet Take 1 tablet twice a day by oral route for 10 days. 12/08 completed Not Available Not Available Not Available naproxen 500 mg tablet 11/05 completed Not Available Not Available Not Available metoclopr amide 10 mg tablet THREE TIMES DAILY, NEEDED 03/18 completed RECORDED 03/18/20 10 3:13PM BY MARGARET BURGESS ON/ADDEN DUM; Not Available Not Available Not Available nicotine 7 mg/24 hr daily transderm al patch 10/25 completed Not Available Not Available Not Available oxycodone 5 mg tablet TAKE 1 TABLET BY MOUTH EVERY 6 HOURS NEEDED FOR PAIN FOR 3 DAYS 10/02 completed Not Available Not Available Not Available Benadryl 25 mg capsule Take 1 capsule 3 times a day by oral route as needed. 05/24 completed Not Available Not Available Not Available neomycin- polymyxin -hydrocor t 3.5 mg-10,000 unit/mL-1 % ear drops,carolyne p INSTILL 4 DROPS INTO AFFECTED EAR 3X DAILY 12/08 completed Not Available Not Available Not Available albuterol (refill) 90 mcg/actua tion aerosol inhaler Inhale 2 puffs every 3-4 hours by inhalati on route as needed. 05/24 completed Not Available Not Available Not Available ezetimibe 10 mg tablet TAKE ONE TABLET BY MOUTH ONCE DAILY active Not Available Not Available No t Available nicotine (polacril ex) 4 mg buccal lozenge 10/25 completed Not Available Not Available Not Available nicotine (polacril ex) 2 mg buccal lozenge Take 1 tablet every hour by oral route as needed. 05/24 completed Not Available Not Available Not Available Novolog FlexPen U-100 Insulin aspart 100 unit/mL (3 mL) subcutane ous Inject up to 22 units 3 times a day based upon sliding scale 10/02 completed Not Available Not Available Not Available rosuvasta tin 10 mg tablet Take 1 tablet every day by oral route in the evening for 30 days. active Not Available Not Available No t Available rosuvasta tin 40 mg tablet Take 1 tablet every day by oral route for 30 days. 07/04 completed Not Available Not Available Not Available metoprolo l tartrate 25 mg tablet Take 0.5 tablets twice a day by oral route for 30 days. 09/23 completed Not Available Not Available Not Available hydrocodo ne-acetam inophen THREE TIMES DAILY, NEEDED 08/16 completed RECORDED 08/16/20 09 11:27AM BY AL DARNELL MD, ANNOTATI ON/ADDEN DUM; Not Available Not Available Not Available Robitussi n DAC EVERY FOUR HOURS, NEEDED 2007 active RECORDED 07/04/20 08 10:37AM BY EMMIE HOWELL, CHENGATI ON/ADDEN DUM; Not Available Not Available Not Available Guiatuss EVERY 6 HOURS NEEDED FOR COUGH 09/06 completed RECORDED 09/19/20 10 10:24AM BY AL DARNELL MD, MEDICATI ON AUTO-JOHN CTIVATIO N;SUGAR FREE, HX OF DM. Not Available Not Available Not Available crutch DIRECTED 01/18 completed RECORDED 01/22/20 10 8:45AM BY REBEKA BARAJAS, MEDICATI ON AUTO-JOHN CTIVATIO N; Not Available Not Available Not Available Hycotuss Expectora nt EVERY FOUR HOURS, NEEDED 2007 active RECORDED 07/04/20 08 10:37AM BY EMMIE HOWELL, ANNOTATI ON/ADDEN DUM; Not Available Not Available Not Available hydrocodo ne 5 mg-acetam inophen 300 mg tablet Take 1 tablet every 4-6 hours by oral route for 5 days. 09/19 completed Not Available Not Available Not Available varenicli ne tartrate 1 mg tablet 03/30 completed Not Available Not Available Not Available BD Ultra-Fin e Short Pen Needle 31 gauge x 04/14 Take 5 needles every day by miscell. route as directed for 30 days. active for use with insulin pens Not Available Not Available Not Available hydrochlo rothiazid e 12.5 mg tablet TAKE ONE TABLET BY MOUTH ONCE DAILY 09/27 completed Not Available Not Available Not Available FreeStyle Lite Strips Take 1 strip twice a day by miscell. route as directed for 30 days. 09/27 completed as needed; primaril y uses CGM Not Available Not Available Not Available Humalog KwikPen (U-100) Insulin 100 unit/mL subcutane ous Inject 2 units every day by subcutan eous route with meals. 09/27 completed Sliding Scale Not Available Not Available Not Available BD Ultra-Fin e Sandra Pen Needle 32 gauge x 03/30 completed Not Available Not Available Not Available Chantix Starting Month Box 0.5 mg (11)-1 mg (42) tablets in dose pack DAILY 03/30 completed Not Available Not Available Not Available Robafen DM Cough 10 mg-100 mg/5 mL oral liquid Take 10 mL every 6 hours by oral route for 10 days. 09/02 completed Not Available Not Available Not Available Tresiba FlexTouch U-100 insulin 100 unit/mL (3 mL) subcutane ous pen Inject 20 units every day by subcutan eous route at bedtime. 10/02 completed Not Available Not Available Not Available Rhinocort Allergy 32 mcg/actua tion nasal spray Take 2 sprays every day by nasal route for 30 days. 11/05 completed Not Available Not Available Not Available Basaglchris KwikPen U-100 Insulin 100 unit/mL (3 mL) subcutane ous Inject 18 units every day by subcutan eous route in the evening. 07/04 completed 25 units Not Available Not Available Not Available Flonase Sensimist 27.5 mcg/actua tion nasal spray,carolyne pension Take 1 spray every day by nasal route at bedtime for 90 days. 10/02 completed Not Available Not Available Not Available FreeStyle Justice 14 Day Sensor kit 12/22 completed Not Available Not Available Not Available FreeStyle Justice 2 Sensor change sensor every 14 days active Not Available Not Available No t Available Paxlovid 300 mg (150 mg x 2)-100 mg tablets in a dose pack TAKE 3 TABLETS BY MOUTH TWICE A DAY FOR 5 DAYS 11/19 completed Not Available Not Available Not Available Dexcom G7 Patient Relations Representative active Not Available Not Available Not Available Dexcom G7 Sensor device active Not Available Not Available Not Available Omnipod 5 G6-G7 Intro Kit(Gen 5) subcutane ous cartridge and controlle r active Not Available Not Available Not Available Omnipod 5 G6-G7 Pods (Gen 5) subcutane ous cartridge active Not Available Not Available No t Available Ultra-Fin e Pen Needle 31 gauge x 3/16 active Not Available Not Available Not Available Vitals Date Recorded Body height Body mass index (BMI) Body weight Heart rate Oxygen saturation Body temperature Systolic And Diastolic Provider Name and Address Organization Details Last Updated DateTime 5 156.21 cm 22.9 kg/m2 83817.8 6 g 82 /min 96 % 97.3 [degF] 120/62 mm[Hg] Avelino seo [facility] 5 08:54:26 Social History Question Answer Notes LastModified by Organizat ion Details LastModified Time Tobacco Smoking Status Former Sm[facility] 14:03:48 Do You Have An Advance Directive? Yes [email or web address] Information not available 10/25/2021 Is Blood Transfusion Acceptable In An Emergency? Yes Information not available 12/11/2015 What Is Your Level Of Caffeine Consumption? Moderate 1-2 Cups Of Coffee Daily Information not available 12/22/2022 How Much Tobacco Do You Chew? None Information not available 12/11/2015 What Type Of Diet Are You Following? CARDIAC [email or web address] Information not available 10/25/2021 Which Illicit Or Recreational Drugs Have You Used? None Information not available 12/11/2015 When Did You Quit Smoking? 1-5yearssin concha newby [email or web address] Information not available 10/25/2021 Live Alone Or With Others? With Others (Tawanda) And 2 Children [email or web address] Information not available 10/25/2021 Do You Take Precautions To Prevent Distracted Driving? Yes Information not available 12/11/2015 How Often Do You Need To Have Someone Help You When You Read Instructions, Pamphlets, Or Other Written Material From Your Doctor Or Pharmacy? Always [email or web address] Information not available 10/25/2021 Have You Served In The ? No Information not available 09/19/2017 To The Best Of Your Knowledge Have You Been In Close Proximity To Any Individual Who Tested Positive For COVID-19? No [email or web address] Information not available 10/25/2021 What Was The Date Of Your Most Recent Tobacco Screening? 10/02/2025 [email or web address] Information not available 10/02/2025 How Many Children Do You Have? 2 Information not available 12/11/2015 What Is Your Current Pack Years? [email or web address] Information not available 09/02/2022 Do You Use Protection During Sex? No Information not available 12/11/2015 Do You Use Your Seat Belt Or Car Seat Routinely? Yes Information not available 10/25/2021 Seat Belts Used Routinely Yes [email or web address] Information not available 10/25/2021 Are You Sexually Active? Yes Information not available 12/11/2015 Smoke Alarm In Home Yes [email or web address] Information not available 10/25/2021 Do You Have Smoke And Carbon Monoxide Detectors In Your Home? Yes [email or web address] Information not available 10/25/2021 At What Age Did You Start Smoking Tobacco? 18 [email or web address] Information not available 03/20/2015 Are You Passively Exposed To Smoke? No Information not available 12/11/2015 How Much Tobacco Do You Smoke? 0.25 PPD Information not available 10/25/2021 General Stress Level High Information not available 10/25/2021 Do You Use Sunscreen Routinely? No [email or web address] Information not available 10/25/2021 How Many Years Have You Smoked Tobacco? 27 Information not available 12/11/2015 Sex: Unknown Functional Status Question Answer Note LastModified by Organizat ion Details LastModified Time Do you use any illicit or recreational drugs? No Information not available 09/02/2022 Do you or have you ever used any other forms of tobacco or nicotine? No Information not available 12/22/2022 What is your level of alcohol consumption? None [email or web address] Information not available 10/25/2021 Do you or have you ever used smokeless tobacco? Never used smokeless tobacco [email or web address] Information not available 10/25/2021 Are you currently employed? No legally blind Information not available 09/27/2024 Are you able to walk independently without assistance or assistive devices? [email or web address] Information not available 10/30/2021 Are you able to care for yourself independently? 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 Moderate 5 x week; walking Information not available 09/27/2024 Mental Status None recorded. Family History Relationship Description Onset Age of this Age Resolved Age Notes LastModified by Organization Details LastModified Time Mother Carcinoma in situ of breast [email or web address] Not available 2020 09:21:39 Mother Malignant neoplasm of breast [email or web address] Not available 2020 09:21:39 Father Hypertensive disorder [email or web address] Not available 14:52:35 Father Aneurysm of cerebral artery Not available 2020 09:21:39 Father Temporal arteritis 76 [email or web address] Not available 2020 09:21:39 Father Arthritis [email or web address] Not availabl e 10/25/2021 09:21:39 Father Cerebrovascu lar accident [email or web address] Not available 09:21:39 Father Heart disease [email or web address] Not available 2020 09:21:39 Notes:No FH of colon cancer Medical History Condition Response Diabetes Y Heart Problems Y Vision or Eye Problems Y Kidney Stones Y Hospitalizations Y Congestive Heart Failure (CHF) Y Hypertension Y Chicken Pox Y Allergies Y Gynecological History Statement/Question Response Most Recent Mammogram 03/13/2021 Obstetrics History GPAL:G 0 P 0 0 0 0 Immunizations Vaccine Type Date Status Note Provider Nam e and Address Organization Details Recorded Time Td (adult) 4 completed Not Available [facility] 08/12/2023 16:41:09 COVID-19, mRNA, LNP-S, PF, 30 mcg/0.3 mL dose 1 completed Not Available [facility] 08/12/2023 16:41:08 COVID-19, mRNA, LNP-S, PF, 30 mcg/0.3 mL dose 1 completed Not Available [facility] 08/12/2023 16:41:08 Influenza, split virus, quadrivalent, PF 7 completed Not Available [facility] 08/12/2023 16:41:09 Influenza, split virus, quadrivalent, PF 8 completed Not Available [facility] 08/12/2023 16:41:09 Tdap 5 completed Not Available [facility] 08/12/2023 16:41:08 Tdap 5 completed Not Available [facility] 10/02/2025 08:46:55 Influenza, split virus, quadrivalent, PF 9 completed Not Available [facility] 12/17/2019 02:22:10 Influenza, split virus, quadrivalent, PF 3 completed Catina Horta MD [address] [address], [place], [address], [facility] 12/22/2022 14:31:02 pneumococcal polysaccharide PPV23 1 completed Not Available [facility] 08/12/2023 16:41:08 Influenza, split virus, trivalent, preservative 4 completed Not Available [facility] 08/12/2023 16:41:08 Influenza, split virus, trivalent, preservative 7 completed Not Available [facility] 08/12/2023 16:41:09 Hep B, adult 8 completed Not Available [facility] 08/12/2023 16:41:09 Influenza, split virus, trivalent, preservative 8 completed Not Available [facility] 08/12/2023 16:41:09 Influenza, split virus, trivalent, preservative 9 completed Not Available [facility] 08/12/2023 16:41:08 pneumococcal polysaccharide PPV23 9 completed Not Available [facility] 08/12/2023 16:41:08 influenza, seasonal, intradermal, preservative free 3 completed Not Available [facility] 08/12/2023 16:41:09 Tdap 3 completed Not Available [facility] 08/12/2023 16:41:08 Influenza, split virus, trivalent, PF 4 completed Catina Horta MD [address] [address], [place], [address], [facility] 09/27/2024 11:54:05 Past Encounters Encounter ID Performer Location Encounter Start Date Encounter Closed Date Diagnosis/Indication Diagnosis SNOMED-CT Code Diagnosis ICD10 Code Diagnosis IMO Codes Diagnosis Note [id number] Dat Reece MD Main Office [address] [address] 10/02/2025 08:45:40 10/02/2025 09:31:03 Adult health examination 855878015 Z00.00 Patient was counseled on healthy diet, exercise and nutrition due to Body mass index is 22.9 kg/m . Last Colonoscop y:Date: 05/13/2022 esult: negativeDu e: 2031 Last Mammogram: Date: 07/24/21 ult: Last Pap smearDate: Result:Loretta n: referral provided. Vaccines:T dAP: 08/22/2025Z alecia rec: script provided [email or web address] : script providedPP SV23: 11/13/09In fluenza: 09/27/24Co vid: encourage updated vaccine Routine labs today Immunizati on status reviewed. Will screen based on risk factors. Regular dental and ophtho care advised as well as seat belt and sunscreen use. Distracted driving discussed. Medication reconciled Type 1 magdy betes mellitus 32078954 E10.9 - Patient advised regarding risks/sign s/symptoms of hypoglycem ia. Counseled to carry a snack in case of emergencie s- Advised to check fingerstic k glucose at home, has justice.- Dental visit- Podiatry, advised podiatry follow up.- Ophthalmol ogy, advised yearly follow up.-Follow s 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 Myocardial infarction 22 721665 I21.9 Follows cardiology yearlylipi ds by cardiology . Peripheral vascular disease 727042624 I73.9 Follows vascular Screening for malignant neoplasm of cervix 828114542 Z12.4 Essential hypertension 57987928 I10 At goal-in office BP of 120/62-c/w current regimen Secondary polycythemia 87169175 D75.1 Cardiomyopathy 33279892 I42.9 Follows cardiology Screening for malignant neoplasm of breast [id number] Z12.39 Health Concerns Section Related Observation LastModified by Organization Detai ls LastModified Time None Recorded Concern Status LastModified by Organization Details LastModified Time None Recorded Payers Encounter Date Sequence Insurance Name Policy Number Policy Dickinson Covered Member ID Dickinson Member ID Guarantor Name 10/02/2025 2 [place]ICARE [place]: [employer] Iona Chadwick [id number] Iona Farrukh 10/02/2025 1 COUNTS INCLUDE 234 BEDS AT [facility] [id number] Tawanda Templeton Farrukh [id number] Iona Chadwick Notes Date Note Type Note Provider Name and Address Organization Details Recorded Time 10/02/2025 text/html ROS as noted in the HPI Here for PE visit. Reviewed chronic medications and medical problems. Discussed screening guidelines as well as goals for fitness and weight management. KAIA MASTERS [address] [facility] [address], [place], [address], [facility] 10/02/2025 09:25:50 OBGyn Episode No OBEpisode recorded.
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
--- OUTSIDE RECORDS SUMMARY | 2025-11-15 20:18 | XMS_ITS | Encounter Summary ---
Author Organization [facility] Address [address] [place] [address] Phone Care Team Providers Care Program Evaluation Consultant Name Role Phone Robbin Alvarez MD Unavailable Robbin Acosta DO Unavailable [phone] Marcelino Carlson MD Unavailable [phone] Mitchell Pedroza PA-C Unavailable [phone] Simeon Valle MD Unavailable [phone] Nanda Manzo MD Unavailable [phone] Tawanda Sullivan MD Unavailable Simeon Valle MD Primary Care Provider Mitchell Bonner MD Primary Care Provider [phone] Adolfo Palumbo MD Primary Care Provider [phone] Encounter Details Date Type Department Care Team (Late st Contact Info) Description 04/20/2018 Procedure Pass [facility], [address] [address] Social History Tobacco Use Types Packs/Day Years Used Date Smoking Tobacco: Every Day Smokeless Tobacco: Never Alcohol Use Standard Drinks/Week Comments No 0 (1 standard drink = 0.6 oz pur e alcohol) Comments Unknown Sex and Gender Information Value Date Recorded Sex Assigned at Not on file Legal Sex Female 6:31 PM EST Gender Identity Not on file Sexual Orientation Not on file documented as of this encounter Plan of Treatment Not on file documented as of this encounter Visit Diagnoses Not on filedocumented in this encounter Care Teams Program Evaluation Consultant Relationship Specialty Start Date End Date Simeon Valle MD [address] [place] [address] PCP - General 12/03/17 04/30/21 Mitchell Bonner MD [address] [place] [phone] PCP - General Internal Medicine 05/01/21 04/14/24 Adolfo Palumbo MD [address] [place] [phone] PCP - General Family Medicine 04/15/24 Robbin Alvarez MD [address] [place] [phone] Historical LMR Provider 09/16/17 Robbin Acosta DO [address] [place] [address] [facility], [place] [address] [email or web address] Historical LMR Provider 09/16/17 12/07/21 Marcelino Carlson MD [address] [place] [address] [email or web address] Historical LMR Provider 09/16/17 12/07/21 Mitchell Pedroza PA-C [address] [place] [address] [facility], [place] [address] Historical LMR Provider 09/16/17 Simeon Valle MD [address] [place] [address] Historical LMR Provider 09/16/17 2 Nanda Manzo MD [address] [place] [address] [facility], [place] [address] Historical LMR Provider 09/16/17 Tawanda Sullivan MD [address] [place] [address] [facility], [place], [place] [id number] Historical LMR Provider 09/16/17 2 documented as of this encounter Additional Source Comments The information contained in this document represents components of the legal health record. It is not the complete legal health record.[facility]
--- OUTSIDE RECORDS SUMMARY | 2025-11-15 20:18 | XMS_ITS | Clinical Summary ---
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 Name Role Phone Mitchell Pedroza PA-C Unavailable [phone] Adolfo Palumbo MD Primary Care Provider [phone] Allergies Active Allergy Reactions Criticality Noted Date Comments Bupropion Hcl Unknown 03/18/2016 Ciprofloxacin 03/18/2016 Other reaction(s): anaphylaxis Metronidazole Anaphylaxis High 03/18/2016 Penicillin V Potassium 03/18/2016 Other reaction(s): Tolerates cephalopsporins Penicillins Other reaction(s): Respiratory distress Silver Sulfadiazine Itching Sulfa (Sulfonamide Antibiotics) Other reaction(s): Respiratory distress Sulfamethoxazole-Trimeth oprim Anaphylaxis High 03/18/2016 Medications lisinopril (PRINIVIL,ZESTRI L) 5 MG tablet Take 1 tablet by mouth daily. Active INSULIN GLARGINE,HUM.REC .ANLOG (LANTUS SUBQ) as directed Subcutaneous Active fluticasone propionate (FLONASE) 50 mcg/actuation nasal spray USE 1 SPRAY INTRANASALLY ONCE DAILY 3 02/09/20 18 Active insulin aspart U-100 (NOVOLOG FLEXPEN U-100 INSULIN) 100 unit/mL InPn injection pen Novolog Flexpen U-100 Insulin aspart 100 unit/mL subcutaneous Active levonorgestrel (MIRENA) 20 mcg/24 hr (5 years) intrauterine device Take 1 device every day by intrauterine route. Active diphenhydrAMINE (BENADRYL) 25 mg tablet NEEDED Active metoprolol succinate (TOPROL-XL) 50 MG 24 hr tablet 05/27/20 21 Active furosemide (LASIX) 40 MG tablet furosemide 40 mg tablet Active glucagon (GLUCAGEN HYPOKIT) 1 mg SolR GlucaGen HypoKit 1 mg Injection Active ezetimibe (ZETIA) 10 mg tablet ezetimibe 10 mg tablet Active colchicine (COLCRYS) 0.6 mg tablet daily. 07/31/20 20 Active clopidogrel (PLAVIX) 75 mg tablet 05/27/20 21 Active cilostazol (PLETAL) 50 MG tablet 05/27/20 21 Active atorvastatin (LIPITOR) 40 MG tablet atorvastatin 40 mg tablet Active aspirin 81 MG EC tablet daily. Active acetaminophen (TYLENOL) 325 mg tablet acetaminophen 325 mg tablet Active rosuvastatin (CRESTOR) 40 MG tablet 05/27/20 21 Active Active Problems Problem Noted Date Diagnosed Date Left shoulder pain 07/08/2018 Social History Tobacco Use Types Packs/Day Years Used Date Smoking Tobacco: Every Day Smokeless Tobacco: Never Alcohol Use Standard Drinks/Week Comments No 0 (1 standard drink = 0.6 oz pur e alcohol) Education Answer Date Recorded Are you interested in more education? Not on lorenzo e 04/12/2023 Are you concerned about learning? Not on file 04/12/2023 No 04/12/2023 No 04/12/2023 Digital Access Answer Date Recorded No 04/25/2023 No 04/25/2023 Reliable internet access at home? Not on file 04/25/2023 Device with a working camera? Not on file Comments Unknown Sex and Gender Information Value Date Recorded Sex Assigned at Not on file Legal Sex Female 6:31 PM EST Gender Identity Not on file Sexual Orientation Not on file Last Filed Vital Signs Vital Sign Reading Time Taken Comments Blood Pressure - - Pulse - - Temperature - - Respiratory Rate - - Oxygen Saturation - - Inhaled Oxygen Concentration - - Weight 59 kg (130 lb) 05/01/2021 2:49 PM EDT Height 157.5 cm (5' 2 ) 05/01/2021 2:49 PM EDT Body Mass Index 23.78 05/01/2021 2:49 PM EDT Plan of Treatment Health Maintenance Due Date Last Done Comments CREATININE LEVEL 1970 LIPID PANEL 1970 POTASSIUM LEVEL 1970 DEPRESSION SCREENING 1982 SMOKING Hx and SMOKELESS TOBACCO SCREENING 1983 HEPATITIS C SCREENING 1988 HIV ONE-TIME SCREENING (18-65 YEARS) 1988 PAP SMEAR 1991 PNEUMOCOCCAL VACCINES (50+ years) (2 of 2 - PCV) 11/13/2010 11/13/2009, 10/05/2001 COLOGUARD 2015 COLONOSCOPY 2015 COLORECTAL CANCER SCREENING 2015 FIT TEST 2015 FOBT 2015 SIGMOIDOSCOPY 2015 VIRTUAL COLONOSCOPY 2015 ZOSTER VACCINES (1 of 2) 2020 MAMMOGRAM 03/13/2023 03/13/2021, 04/10/2017 INFLUENZA VACCINE (#1) 2025 , 11/10/2019, 11/05/2018, Additional history exists COVID-19 VACCINE ( season) 2025 08/30/2021, 08/07/2021 Adult Td,Tdap Booster 10/05/2025 10/05/2015 , 11/08/2013, 04/16/2004 RSV VACCINE (1 - 1-dose 75+ series) 2045 HEPATITIS A VACCINES Aged Out No long er eligible based on patient's age to complete this topic HIB VACCINES Aged Out No longer eligi ble based on patient's age to complete this topic MENINGOCOCCAL VACCINES (ACWY) Aged Out No longer eligible based on patient's age to complete this topic MENINGOCOCCAL VACCINES (B) Aged Out N o longer eligible based on patient's age to complete this topic Medical Devices Not on file Insurance MEDICARE PART A & B [facility] TOTAL CHOICE INDEMNITY MEDICARE PART A & [place] [facility] TOTAL CHOICE INDEMNITY MEDICARE PART A & B [facility] [place] [id number] [facility] TOTAL CHOICE INDEMNITY MEDICARE PART A & B [facility] TOTAL CHOICE INDEMNITY [facility] TOTAL CHOICE [facility]DEMNITY MEDICARE PART A & B [place] TOTAL CHOICE INDEMNITY MEDICARE PART A & B [place] [facility] TOTAL CHOICE INDEMNITY MEDICARE PART A & B [facility] TOTAL CHOICE INDEMNITY Care Teams Dredge Operator Supervisor Relationship Specialty Start Date End Date Adolfo Palumbo MD [address] [facility] [address] [place] [phone] PCP - General Family Medicine 04/15/24 Mitchell Pedroza PA-C [address] [place] [address] [facility] Medicine, [place] [address] [email or web address] Historical LMR Provider 09/16/17 Additional Source Comments The information contained in this document represents components of the legal health record. It is not the complete legal health record.[facility]
--- OUTSIDE RECORDS SUMMARY | 2025-11-15 20:19 | XMS_ITS | Data Portability ---
Author Organization [facility], Main Office Address [address] [place] [address] Care Team Providers Care Solar Installation Supervisor Name Role Phone FIDENCIO BOWMAN Freelance Art Director THIERNO VIDALES Script Girl [facility] Princess st Surgeon Rene CARVALHO Vascular Surgeon MARY HAYDEN General Surgeon GITA MATA Bridge Painter TISHA PAINTING OTHER ANIYAH REDD Head Of Design [phone] CATINA HORTA Primary Care Provider [phone] TAMIKA PEÑA Breast Surgeon Assessment Encounter Date Assessment Date Assessment LastModified by Organization Details LastModified Time 06/10/2023 06/10/2023 This service was provided using telemedicine. Patient consented to video & audio visit Patient was located in the [facility]. Provider was located in the office. No other persons participated in the telemedicine visit except for the patient unless otherwise indicated here. Total time of visit was 15 minutes. [email or web address] Not available 06/10/2023 16:28:34 01/20/2024 01/20/2024 This service was provided using telemedicine. Patient consented to video & audio visit Patient was located in the [facility]. Provider was located in the office. No other persons participated in the telemedicine visit except for the patient unless otherwise indicated here. Total time of visit was 15 minutes. [email or web address] Not available 01/20/2024 17:28:39 10/13/2024 10/13/2024 Discussed with patient the signs/symptoms warranted for a return to office visit and/or an ER visit. Patient understood and agreed with the plan. Not available 10/12/2024 21:37:20 Plan of Treatment Reminders Order Date Submit Date Provider Last Modified By Organization Details Last Modified Time Details Appointments None recorde d. Lab albumin /creati nine, mass ratio, urine 2024 025 THOMAS [facility] (Centralized Electronic Ordering - All Locations), Patient Can Go To The Location Of Their Choice, [id number] 16:07:13 HbA1c (hemogl obin A1c), blood 2024 025 THOMAS [facility] (Centralized Electronic Ordering - All Locations), Patient Can Go To The Location Of Their Choice, 16:07:14 BMP, serum or plasma 2024 025 THOMAS [facility] (Centralized Electronic Ordering - All Locations), Patient Can Go To The Location Of Their Choice, [address] 16:07:13 CBC w/ auto diff 2024 025 THOMAS [facility] (Centralized Electronic Ordering - All Locations), Patient Can Go To The Location Of Their Choice, [address] 16:07:12 hepatic functio n panel, serum 2023 024 THOMAS [facility], [address], [place], [address], 16:07:20 vitamin D, 25-hydr oxy, total, serum 2023 024 THOMAS [facility], [address], [address], [place], [address], 16:07:22 albumin /creati nine, mass ratio, urine 2023 024 THOMAS [facility] (Centralized Electronic Ordering - All Locations), Patient Can Go To The Location Of Their Choice, [address] 11/01/202 4 16:07:21 magnesi um, serum or plasma 2023 024 THOMAS [facility], [address], [place], [address], 4 16:07:22 BMP, serum or plasma 2023 024 THOMAS [facility], [address], [place], [address], 4 16:07:20 CBC w/ auto diff 2023 024 THOMAS [facility], [address], [place], [address], 4 16:07:19 Referral podiatr ist referra l - for annual diabeti c foot exams 2024 025 [facility], [address] [place], [address], 5 13:16:43 ophthal mologis t referra l - was followi ng >5yrs ago. 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 Needs re-eval uation. 2024 025 [facility], [address], [place], [address], 5 10:01:47 gynecol ogist referra l - Patient to schedul e 2024 025 [email or web address] Not available 5 09:31:03 gynecol ogist referra l 2023 024 [email or web address] Not available 4 13:48:43 gynecol ogist referra l - Patient to schedul e 2023 024 [email or web address] Not available 4 13:49:07 Procedures None recorde d. Surgeries None recorde d. Imaging MAMMO, screeni ng, bilater al 2024 025 [email or web address] [facility], [address], [address] [facility] [address] [facility] [address], [place], [address], 09:31:03 Medication Orders methoca rbamol 500 mg tablet 2023 024 [id number], [address] [place], [address], 14:45:39 hydroch lorothi azide 12.5 mg capsule 2023 024 [facility], [address] [place], [address], 4 16:07:49 lisinop ril 20 mg tablet 2023 024 [facility], [address] [place], [address], 4 16:07:25 Patient TargetsNo targets recorded. Patient Instructions Encounter Date Encounter Id Patient Instructions Last Modified By Organization Details Last Modified Time 01/20/2024 [id number] high blood pressure: care instructions [email or web address] Not available 01/20/2024 16:24:41 learning about high blood pressure [email or web address] Not available 01/20/2024 16:24:41 09/27/2024 [id number] well visit, wome n 50 to 65: care instructions [email or web address] Not available 09/27/2024 11:58:20 medical record request* [email or web address] Not available 10/04/2024 10:47:41 Cervical Cancer Screening [email or web address] Not available 09/27/2024 11:58:20 10/13/2024 [id number] At [facility] follow up visit, all current and discharge medications (OTC, herbal therapies, supplements) reviewed and reconciled with patient and or caregiver, including potential side effects, drug interactions, instructions, and the consequences of not taking medication. Reviewed potential barriers to medication adherence, such as side effects from medication or cost of medication. [email or web address] Not available 10/13/2024 14:23:37 10/02/2025 [id number] well visit, wome n 50 to 65: care instructions Not available 10/02/2025 09:13:22 Cervical Cancer Screening Not available 10/02/2025 09:13:22 Reason for Referral Freelance Art Director Referral for Sc reening for malignant neoplasm of cervix Referring Physician: Catina Horta [facility], Encounter Date: 09/27/2024 Freelance Art Director Referral for Sc reening for malignant neoplasm of cervix Patient to schedule Referring Physician: Catina Horta [facility], Encounter Date: 09/27/2024 Freelance Art Director Referral for Sc reening for malignant neoplasm of cervix Patient to schedule Referring Physician: Vandana Ayers [facility], Encounter Date: 10/02/2025 Script Girl Referral for Proliferative retinopathy due to type 1 diabetes mellitus was following >5yrs ago. 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 Needs re-evaluation. Referring Physician: Vandana Ayers [facility], Encounter Date: 10/02/2025 Senior Dynamics Crm Developer Referral for Type 1 diabetes mellitus for annual diabetic foot exams Referring Physician: Vandana Ayers [facility], Encounter Date: 10/02/2025 Results Created Date Observation Date Name Description Value Unit Range Abnormal Flag Note LastModifiedBy Organization Detail LastModifiedTime 06/13/2006/13/2023 BASIC METAB OLIC PANEL results Dupli rain order cance lled via inter face Not Available [facility] (Centralized Electronic Ordering - All Locations) Patient Can Go To The Location Of Their Choice, 06/13/2023 11:39:45 06/13/2006/13/2023 COMPL ETE CBC WITH DIFF WBC 8.8 K/mm3 (4.0-1 1.0) Not Available [facility] (Centralized Electronic Ordering - All Locations) Patient Can Go To The Location Of Their Choice, 06/13/2023 14:45:21 06/13/2006/13/2023 COMPL ETE CBC WITH DIFF RBC 4.94 M/mm3 (4.20- 5.40) Not Available [facility] (Centralized Electronic Ordering - All Locations) Patient Can Go To The Location Of Their Choice, 06/13/2023 14:45:06/13/2006/13/2023 COMPL ETE CBC WITH DIFF HGB 15.2 gm/dL (11.7- 15.5) Not Available [facility] (Centralized Electronic Ordering - All Locations) Patient Can Go To The Location Of Their Choice, 06/13/2023 14:45:06/13/2006/13/2023 COMPL ETE CBC WITH DIFF HCT 45.0 % (35.7- 45.8) Not Available [facility] (Centralized Electronic Ordering - All Locations) Patient Can Go To The Location Of Their Choice, 06/13/2023 14:45:06/13/2006/13/2023 COMPL ETE CBC WITH DIFF MCV 91.1 fL (80.0- 100.0) Not Available [facility] (Centralized Electronic Ordering - All Locations) Patient Can Go To The Location Of Their Choice, 06/13/2023 14:45:06/13/2006/13/2023 COMPL ETE CBC WITH DIFF MCH 30.8 pg (27.0- 34.0) Not Available [facility] (Centralized Electronic Ordering - All Locations) Patient Can Go To The Location Of Their Choice, 06/13/2023 14:45:06/13/2006/13/2023 COMPL ETE CBC WITH DIFF MCHC 33.8 g/dL (33.0- 37.0) Not Available [facility] (Centralized Electronic Ordering - All Locations) Patient Can Go To The Location Of Their Choice, 06/13/2023 14:45:06/13/2006/13/2023 COMPL ETE CBC WITH DIFF plt 211 K/mm3 (150-4 60) Not Available [facility] (Centralized Electronic Ordering - All Locations) Patient Can Go To The Location Of Their Choice, 06/13/2023 14:45:06/13/2006/13/2023 COMPL ETE CBC WITH DIFF RDW-SD 42.7 fL (<47.0 ) Not Available [facility] (Centralized Electronic Ordering - All Locations) Patient Can Go To The Location Of Their Choice, 06/13/2023 14:45:06/13/2006/13/2023 COMPL ETE CBC WITH DIFF MPV 11.5 fL (9.4-1 2.4) Not Available [facility] (Centralized Electronic Ordering - All Locations) Patient Can Go To The Location Of Their Choice, 06/13/2023 14:45:06/13/2006/13/2023 COMPL ETE CBC WITH DIFF automated NRBC 0.0 #/100 _WBC' s Not Available [facility] (Centralized Electronic Ordering - All Locations) Patient Can Go To The Location Of Their Choice, 06/13/2023 14:45:06/13/2006/13/2023 COMPL ETE CBC WITH DIFF abs. NRBC 0.0 K/mm3 Not Available [facility] (Centralized Electronic Ordering - All Locations) Patient Can Go To The Location Of Their Choice, 06/13/2023 14:45:06/13/2006/13/2023 COMPL ETE CBC WITH DIFF neut # 6.1 K/mm3 (1.3-7 .0) Not Available [facility] (Centralized Electronic Ordering - All Locations) Patient Can Go To The Location Of Their Choice, 06/13/2023 14:45:06/13/2006/13/2023 COMPL ETE CBC WITH DIFF lymph # 1.9 K/mm3 (0.8-3 .1) Not Available [facility] (Centralized Electronic Ordering - All Locations) Patient Can Go To The Location Of Their Choice, 06/13/2023 14:45:06/13/2006/13/2023 COMPL ETE CBC WITH DIFF mono# 0.6 K/mm3 (0.4-0 .9) Not Available [facility] (Centralized Electronic Ordering - All Locations) Patient Can Go To The Location Of Their Choice, 06/13/2023 14:45:06/13/2006/13/2023 COMPL ETE CBC WITH DIFF eo # 0.1 K/mm3 (0.0-0 .4) Not Available [facility] (Centralized Electronic Ordering - All Locations) Patient Can Go To The Location Of Their Choice, 06/13/2023 14:45:06/13/2006/13/2023 COMPL ETE CBC WITH DIFF baso # 0.1 K/mm3 (0.0-0 .1) Not Available [facility] (Centralized Electronic Ordering - All Locations) Patient Can Go To The Location Of Their Choice, 06/13/2023 14:45:06/13/2006/13/2023 COMPL ETE CBC WITH DIFF abs. imm gran 0.0 K/mm3 Not Available [facility] ([facility] Ordering - All Locations) Patient Can Go To The Location Of Their Choice, 06/13/2023 14:45:06/13/2006/13/2023 COMPL ETE CBC WITH DIFF neut 69.6 % (44-76 ) Not Available [facility] (Centralized Electronic Ordering - All Locations) Patient Can Go To The Location Of Their Choice, 06/13/2023 14:45:06/13/2006/13/2023 COMPL ETE CBC WITH DIFF lymph 21.6 % (15-43 ) Not Available [facility] (Centralized Electronic Ordering - All Locations) Patient Can Go To The Location Of Their Choice, 06/13/2023 14:45:06/13/2006/13/2023 COMPL ETE CBC WITH DIFF monocyte 6.7 % (4.5-1 0.5) Not Available [facility] (Centralized Electronic Ordering - All Locations) Patient Can Go To The Location Of Their Choice, 06/13/2023 14:45:06/13/2006/13/2023 COMPL ETE CBC WITH DIFF eo 1.0 % (0-6) Not Available [facility] (Centralized Electronic Ordering - All Locations) Patient Can Go To The Location Of Their Choice, 06/13/2023 14:45:06/13/2006/13/2023 COMPL ETE CBC WITH DIFF baso 0.9 % (0-2) Not Available [facility] (Centralized Electronic Ordering - All Locations) Patient Can Go To The Location Of Their Choice, 06/13/2023 14:45:06/13/2006/13/2023 COMPL ETE CBC WITH DIFF imm gran 0.2 % Not Available [facility] (Centralized Electronic Ordering - All Locations) Patient Can Go To The Location Of Their Choice, 06/13/2023 14:45:21 06/13/2006/13/2023 BASIC METAB OLIC PANEL glucose 194 mg/dL (70-99 ) high Not Available [facility] (Centralized Electronic Ordering - All Locations) Patient Can Go To The Location Of Their Choice, 06/13/2023 14:55:01 06/13/2006/13/2023 BASIC METAB OLIC PANEL BUN 11 mg/dL (6-20) Not Available [facility] (Centralized Electronic Ordering - All Locations) Patient Can Go To The Location Of Their Choice, 06/13/2023 14:55:01 06/13/2006/13/2023 BASIC METAB OLIC PANEL creatinine 0.8 mg/dL (0.5-1 .0) Not Available [facility] (Centralized Electronic Ordering - All Locations) Patient Can Go To The Location Of Their Choice, 06/13/2023 14:55:01 06/13/2006/13/2023 BASIC METAB OLIC PANEL sodium 137 mmol/ L (133-1 45) Not Available [facility] (Centralized Electronic Ordering - All Locations) Patient Can Go To The Location Of Their Choice, 06/13/2023 14:55:01 06/13/2006/13/2023 BASIC METAB OLIC PANEL potassium 4.3 mmol/ L (3.6-5 .2) Not Available [facility] (Centralized Electronic Ordering - All Locations) Patient Can Go To The Location Of Their Choice, 06/13/2023 14:55:01 06/13/2006/13/2023 BASIC METAB OLIC PANEL chloride 98 mmol/ L (98-10 7) Not Available [facility] (Centralized Electronic Ordering - All Locations) Patient Can Go To The Location Of Their Choice, 06/13/2023 14:55:01 06/13/2006/13/2023 BASIC METAB OLIC PANEL bicarbonate 28 mmol/ L (22-29 ) Not Available [facility] (Centralized Electronic Ordering - All Locations) Patient Can Go To The Location Of Their Choice, 06/13/2023 14:55:01 06/13/2006/13/2023 BASIC METAB OLIC PANEL anion gap 11 (4-17) Not Available [facility] ([facility]ized Electronic Ordering - All Locations) Patient Can Go To The Location Of Their Choice, 06/13/2023 14:55:01 06/13/2006/13/2023 BASIC METAB OLIC PANEL calcium 9.4 mg/dL (8.6-1 0.5) Not Available [facility] (Centralized Electronic Ordering - All Locations) Patient Can Go To The Location Of Their Choice, 06/13/2023 14:55:01 06/13/2006/13/2023 BASIC METAB OLIC PANEL estimated GFR creatinine 91 mL/mi n/1.7 3_M2 Creat inine based estim ated glome rular filtr ation (eGFR ) in adult s is calcu lated using the Natio nal Kidne y Found ation recom lalo d 2020 CKD-E PI equat ion. Estim ates GFR from serum creat inine , age and sex. Not Available [facility] (Centralized Electronic Ordering - All Locations) Patient Can Go To The Location Of Their Choice, 06/13/2023 14:55:01 06/13/2006/13/2023 GGTP ggtp 13 U/L (5-36) Not Available [facility] (Centralized Electronic Ordering - All Locations) Patient Can Go To The Location Of Their Choice, 06/13/2023 14:55:03 06/13/2006/13/2023 HEPAT IC FUNCT ION PANEL bilirubin,to noel 0.4 mg/dL (0-1.2 ) Not Available [facility] (Centralized Electronic Ordering - All Locations) Patient Can Go To The Location Of Their Choice, 06/13/2023 14:55:05 06/13/2006/13/2023 HEPAT IC FUNCT ION PANEL bilirubin, direct <0.2 mg/dL (0-0.3 ) Not Available [facility] (Centralized Electronic Ordering - All Locations) Patient Can Go To The Location Of Their Choice, 06/13/2023 14:55:05 06/13/2006/13/2023 HEPAT IC FUNCT ION PANEL indirect bilirubin mg/dL (0.0-0 .7) Direc t bilir ubin is less than the measu reabl e limit . There fore, indir ect bilir ubin canno t be calcu lated . Not Available [facility] (Centralized Electronic Ordering - All Locations) Patient Can Go To The Location Of Their Choice, 06/13/2023 14:55:06/13/2006/13/2023 HEPAT IC FUNCT ION PANEL albumin 4.4 gm/dL (3.4-4 .8) Not Available [facility] ([facility]ized Electronic Ordering - All Locations) Patient Can Go To The Location Of Their Choice, 06/13/2023 14:55:06/13/2006/13/2023 HEPAT IC FUNCT ION PANEL AST 23 U/L (0-32) Not Available [facility] ([facility]ized Electronic Ordering - All Locations) Patient Can Go To The Location Of Their Choice, 06/13/2023 14:55:06/13/2006/13/2023 HEPAT IC FUNCT ION PANEL ALT 17 U/L (0-33) Not Available [facility] ([facility]ized Electronic Ordering - All Locations) Patient Can Go To The Location Of Their Choice, 06/13/2023 14:55:05 06/13/2006/13/2023 HEPAT IC FUNCT ION PANEL alk phos 113 U/L (35-10 4) high Not Available [facility] ([facility]ized Electronic Ordering - All Locations) Patient Can Go To The Location Of Their Choice, 06/13/2023 14:55:05 06/13/2006/13/2023 HEPAT IC FUNCT ION PANEL total protein 6.7 gm/dL (6.2-8 .2) Not Available [facility] ([facility] Electronic Ordering - All Locations) Patient Can Go To The Location Of Their Choice, 06/13/2023 14:55:06/13/2006/13/2023 MAGNE SIUM magnesium 1.9 mg/dL (1.6-2 .3) Not Available [facility] ([facility]ized Electronic Ordering - All Locations) Patient Can Go To The Location Of Their Choice, 06/13/2023 14:55:06/13/2006/15/2023 HEMOG LOBIN A1C hemoglobin A1C 9.2 % (4.0-5 .6) high MONIT ORING : In known diabe tic patie nts, hemog lobin A1c targe ts michael d be discu ssed with healt h care provi daniele. DIAGN OSTIC USE: The Ameri can Diabe mikal Assoc iatio n (ADA) and the World Healt h Organ izati on (WHO) recom mend the use of HbA1c to diagn ose diabe mikal using a thres hold of 6.5%. Patie nts who have an HbA1c betwe en 5.7% and 6.4% are consi dered at incre ased risk for devel oping diabe mikal in the futur eShavon CAUTI ON: False ly low HbA1c resul ts may be obser jomar in patie nts with hemol ytic anemi a, homoz ygous forms of abnor mal hemog lobin (e.g. SS, CC, SC), pregn janis, recen t blood loss or hemog lobin F great er than 7%. Fruct osami ne may be used as an alter radha test in these cases . REFER ENCE: ADA: Stand ards of Medic al Care in Diabe mikal 2019, The Journ al of Clini camryn and Appli ed Resea rch and Educa tion Volum e 43, Suppl ement 1 Not Available [facility] (Centralized Electronic Ordering - All Locations) Patient Can Go To The Location Of Their Choice, 06/15/2023 11:48:44 06/13/2006/19/2023 ALK PHOS ISO alkaline phos, total for iso 113 Refer ence range : 44 to 121 Unit: IU/L Test perfo rmed by [facility], [address] [place] [address] Not Available [facility] (Centralized Electronic Ordering - All Locations) Patient Can Go To The Location Of Their Choice, 06/19/2023 10:07:42 06/13/2006/19/2023 ALK PHOS ISO bone fraction, alk phos isoenz 50 Refer ence range : 14 to 68 Unit: % Not Available [facility] ([facility]ized Electronic Ordering - All Locations) Patient Can Go To The Location Of Their Choice, 06/19/2023 10:07:42 06/13/20 23 06/19/2023 ALK PHOS ISO intestinal frac alk phos isoen 0 Refer ence range : 0 to 18 Unit: % Not Available [facility] ([facility]ized [facility] Ordering - All Locations) Patient Can Go To The Location Of Their Choice, [id number] 06/19/2023 10:07:42 06/13/20 23 06/19/2023 ALK PHOS ISO liver fraction alk phos isoenz 50 Refer ence range : 18 to 85 Unit: % Test perfo rmed at [facility] , [address] [place] [address] , [place] [address] Not Available [facility] (Centralized Electronic Ordering - All Locations) Patient Can Go To The Location Of Their Choice, [id number] 06/19/2023 10:07:42 09/27/20 24 09/27/2024 CBC WITH DIFFE RENTI AL/PL ATELE T WBC 8.7 x10e3 /uL 3.4-10 .8 normal Not Available [facility] ([facility]) [address] [place], [address], 09/30/2024 16:07:19 09/27/20 24 09/27/2024 CBC WITH DIFFE RENTI AL/PL ATELE T RBC 5.38 x10e6 /uL 3.77-5 .28 above high normal Not Available [facility] ([facility]) [address] [place], [address], 09/30/2024 16:07:19 09/27/20 24 09/27/2024 CBC WITH DIFFE RENTI AL/PL ATELE T hemoglobin 16.7 g/dL 11.1-1 5.9 above high normal Not Available [facility] ([facility]) [address] [place], [address], 09/30/2024 16:07:19 09/27/20 24 09/27/2024 CBC WITH DIFFE RENTI AL/PL ATELE T hematocrit 51.5 % 34.0-4 6.6 above high normal Not Available [facility] ([facility]) [address] [place], [address], 09/30/2024 16:07:19 09/27/20 24 09/27/2024 CBC WITH DIFFE RENTI AL/PL ATELE T MCV 96 fL 79-97 normal Not Available [facility] ([facility]) [address] [facility], [place], [address], 09/30/2024 16:07:19 09/27/20 24 09/27/2024 CBC WITH DIFFE RENTI AL/PL ATELE T MCH 31.0 pg 26.6-3 3.0 normal Not Available [facility] ([facility]) [address] [facility], [place], [address], 09/30/2024 16:07:19 09/27/20 24 09/27/2024 CBC WITH DIFFE RENTI AL/PL ATELE T MCHC 32.4 g/dL 31.5-3 5.7 normal Not Available [facility] ([facility]) [address] [facility], [place], [address], 09/30/2024 16:07:19 09/27/20 24 09/27/2024 CBC WITH DIFFE RENTI AL/PL ATELE T RDW 13.6 % 11.7-1 5.4 Not Available [facility] ([facility]) [address] [facility] [address], [place], [address], 09/30/2024 16:07:19 09/27/20 24 09/27/2024 CBC WITH DIFFE RENTI AL/PL ATELE T platelets 248 x10e3 /uL 150-45 0 normal Not Available [facility] ([facility]) [address] [facility], [place], [address], 09/30/2024 16:07:19 09/27/20 24 09/27/2024 CBC WITH DIFFE RENTI AL/PL ATELE T neutrophils 59 % not estab. normal Not Available [facility] ([facility]) [address] [facility], [place], [address], 09/30/2024 16:07:19 09/27/20 24 09/27/2024 CBC WITH DIFFE RENTI AL/PL ATELE T lymphs 31 % not estab. normal Not Available [facility] ([facility]) [address] [facility], [place], [address], 09/30/2024 16:07:19 09/27/20 24 09/27/2024 CBC WITH DIFFE RENTI AL/PL ATELE T monocytes 8 % not estab. normal Not Available [facility] ([facility]) [address] [facility], [place], [address], 09/30/2024 16:07:19 09/27/20 24 09/27/2024 CBC WITH DIFFE RENTI AL/PL ATELE T eos 1 % not estab. normal Not Available [facility] ([facility]) [address] [facility], [place], [address], 09/30/2024 16:07:19 09/27/20 24 09/27/2024 CBC WITH DIFFE RENTI AL/PL ATELE T basos 1 % not estab. normal Not Available [facility] (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) [address] [place], [address], 09/30/2024 16:07:19 09/27/20 24 09/27/2024 CBC WITH DIFFE RENTI AL/PL ATELE T neutrophils (absolute) 5.1 x10e3 /uL 1.4-7. 0 normal Not Available [facility] ([facility]) [address] [place], [address], 09/30/2024 16:07:19 09/27/20 24 09/27/2024 CBC WITH DIFFE RENTI AL/PL ATELE T lymphs (absolute) 2.6 x10e3 /uL 0.7-3. 1 normal Not Available [facility] ([facility]) [address] [place], [address], 09/30/2024 16:07:19 09/27/20 24 09/27/2024 CBC WITH DIFFE RENTI AL/PL ATELE T monocytes(ab solute) 0.7 x10e3 /uL 0.1-0. 9 normal Not Available [facility] ([facility]) [address] [facility], [place], [address], 09/30/2024 16:07:19 09/27/20 24 09/27/2024 CBC WITH DIFFE RENTI AL/PL ATELE T eos (absolute) 0.1 x10e3 /uL 0.0-0. 4 normal Not Available [facility] ([facility]) [address] [facility], [place], [address], 09/30/2024 16:07:19 09/27/20 24 09/27/2024 CBC WITH DIFFE RENTI AL/PL ATELE T baso (absolute) 0.1 x10e3 /uL 0.0-0. 2 normal Not Available [facility] ([facility]) [address] [facility], [place], [address], 09/30/2024 16:07:19 09/27/20 24 09/27/2024 CBC WITH DIFFE RENTI AL/PL ATELE T immature granulocytes 0 % not estab. Not Available [facility] ([facility]) [address] [facility], [place], [address], 09/30/2024 16:07:19 09/27/20 24 09/27/2024 CBC WITH DIFFE RENTI AL/PL ATELE T immature grans (abs) 0.0 x10e3 /uL 0.0-0. 1 Not Available [facility] (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) [address], [place], [address], 09/30/2024 16:07:19 09/27/2009/29/2024 BASIC METAB OLIC PANEL (8) glucose 136 mg/dL 70-99 above high normal Not Available [facility] ([facility]) [address] [place], [address], 09/30/2024 16:07:20 09/27/20 24 09/29/2024 BASIC METAB OLIC PANEL (8) BUN 12 mg/dL 6-24 normal Not Available [facility] ([facility]) [address] [facility] [address], [place], [address], 09/30/2024 16:07:20 09/27/2009/29/2024 BASIC METAB OLIC PANEL (8) creatinine 0.96 mg/dL 0.57-1 .00 normal Not Available [facility] ([facility]) [address] [facility] [address], [place], [address], 09/30/2024 16:07:20 09/27/2009/29/2024 BASIC METAB OLIC PANEL (8) eGFR 70 mL/mi n/1.7 3 >59 normal Not Available [facility] ([facility]) [address] [place], [address], 09/30/2024 16:07:20 09/27/2009/29/2024 BASIC METAB OLIC PANEL (8) BUN/creatini ne ratio 13 9-23 normal Not Available [facility] ([facility]) [address] [place], [address], 09/30/2024 16:07:20 09/27/20 24 09/29/2024 BASIC METAB OLIC PANEL (8) sodium 140 mmol/ L 134-14 4 normal Not Available [facility] ([facility]) [address] [place], [address], 09/30/2024 16:07:20 09/27/20 24 09/29/2024 BASIC METAB OLIC PANEL (8) potassium 4.4 mmol/ L 3.5-5. 2 normal Not Available [facility] ([facility]) [address] [place], [address], 09/30/2024 16:07:20 09/27/2009/29/2024 BASIC METAB OLIC PANEL (8) chloride 97 mmol/ L 96-106 normal Not Available [facility] ([facility]) [address] [place], [address], 09/30/2024 16:07:20 09/27/20 24 09/29/2024 BASIC METAB OLIC PANEL (8) carbon dioxide, total 21 mmol/ L 20-29 normal Not Available [facility] ([facility]) [address] [place], [address], 09/30/2024 16:07:20 09/27/20 24 09/29/2024 BASIC METAB OLIC PANEL (8) calcium 9.9 mg/dL 8.7-10 .2 normal Not Available [facility] ([facility]) [address] [place], [address], 09/30/2024 16:07:20 09/27/2009/29/2024 HEPAT IC FUNCT ION PANEL (7) protein, total 6.9 g/dL 6.0-8. 5 normal Not Available [facility] ([facility]) [address] [place], [address], 09/30/2024 16:07:20 09/27/20 24 09/29/2024 HEPAT IC FUNCT ION PANEL (7) albumin 4.5 g/dL 3.8-4. 9 normal Not Available [facility] ([facility]) [address] [place], [address], 09/30/2024 16:07:20 09/27/20 24 09/29/2024 HEPAT IC FUNCT ION PANEL (7) bilirubin, total 0.5 mg/dL 0.0-1. 2 normal Not Available [facility] ([facility]) [address] [place], [address], 09/30/2024 16:07:20 09/27/20 24 09/29/2024 HEPAT IC FUNCT ION PANEL (7) bilirubin, direct 0.14 mg/dL 0.00-0 .40 normal Not Available [facility] ([facility]) [address] [place], [address], 09/30/2024 16:07:20 09/27/20 24 09/29/2024 HEPAT IC FUNCT ION PANEL (7) alkaline phosphatase 104 IU/L 44-121 normal Not Available [facility] ([facility]) [address] [place], [address], 09/30/2024 16:07:20 09/27/20 24 09/29/2024 HEPAT IC FUNCT ION PANEL (7) AST (SGOT) 47 IU/L 0-40 above high normal Not Available [facility] ([facility]) [address] [place], [address], 09/30/2024 16:07:20 09/27/20 24 09/29/2024 HEPAT IC FUNCT ION PANEL (7) ALT (SGPT) 47 IU/L 0-32 above high normal Not Available [facility] ([facility]) [address] [place], [address], 09/30/2024 16:07:20 09/27/20 24 09/30/2024 ALBUM IN/CR EATIN INE RATIO ,URIN E creatinine, urine 55.2 mg/dL not estab. normal Not Available [facility] ([facility]) [address] [facility], [place], [address], 09/30/2024 16:07:21 09/27/20 24 09/30/2024 ALBUM IN/CR EATIN INE RATIO ,URIN E albumin, urine 23.9 ug/mL not estab. Not Available [facility] ([facility]) [address] [facility], [place], [address], 09/30/2024 16:07:21 09/27/20 24 09/30/2024 ALBUM IN/CR EATIN INE RATIO ,URIN E alb/creat ratio 43 mg/g_ creat 0-29 above high normal Mahogany l: 0 - 29 Moder ately incre ased: 30 - 300 Sever doni incre ased: >300 Not Available [facility] ([facility]) [address] [facility], [place], [address], 09/30/2024 16:07:21 09/27/20 24 09/28/2024 VITAM IN D, 25-HY DROXY vitamin D, 25-hydroxy 41.1 NG/mL 30.0-1 00.0 Vitam in D defic iency has been defin ed by the Insti tute of Medic ine and an Endoc rine Socie ty pract ice guide line as a level of serum 25-OH vitam in D less than 20 ng/mL (1,2) . The Endoc rine Socie ty went on to furth er defin e vitam in D insuf ficie ncy as a level betwe en 21 and 29 ng/mL (2). 1. IOM (Inst itute of Medic ine). 2010. Dieta ry refer ence rosie es for calci um and D. Salvatore scott [place]: [facility] . 2. Danielle pro MF, Gurjit ey [place], Dirk off-F errar i MAJANO, et al. Evalu ation , treat ment, and preve ntion of vitam in D defic iency : an Endoc rine Socie ty clini camryn pract ice guide line. JCEM. 2010; 96(8) :1911 -30. Not Available [facility] ([facility]) [address] [facility], [place], [address], 09/30/2024 16:07:22 09/27/20 24 09/29/2024 MAGNE SIUM magnesium 1.9 mg/dL 1.6-2. 3 normal Not Available [facility] ([facility]) [address] [place], [address], 09/30/2024 16:07:22 10/18/20 25 10/19/2025 CBC WITH DIFFE RENTI AL/PL ATELE T WBC 7.3 x10e3 /uL 3.4-10 .8 normal Not Available [facility] ([facility]) [address] [facility], [place], [address], 10/19/2025 16:07:12 10/18/20 25 10/19/2025 CBC WITH DIFFE RENTI AL/PL ATELE T RBC 5.27 x10e6 /uL 3.77-5 .28 normal Not Available [facility] ([facility]) [address] [place], [address], 10/19/2025 16:07:12 10/18/20 25 10/19/2025 CBC WITH DIFFE RENTI AL/PL ATELE T hemoglobin 17.0 g/dL 11.1-1 5.9 above high normal Not Available [facility] ([facility]) [address] [place], [address], 10/19/2025 16:07:12 10/18/20 25 10/19/2025 CBC WITH DIFFE RENTI AL/PL ATELE T hematocrit 51.2 % 34.0-4 6.6 above high normal Not Available [facility] ([facility]) [address] [place], [address], 10/19/2025 16:07:12 10/18/20 25 10/19/2025 CBC WITH DIFFE RENTI AL/PL ATELE T MCV 97 fL 79-97 normal Not Available [facility] ([facility]) [address] [place], [address], 10/19/2025 16:07:12 10/18/20 25 10/19/2025 CBC WITH DIFFE RENTI AL/PL ATELE T MCH 32.3 pg 26.6-3 3.0 normal Not Available [facility] ([facility]) [address] [place], [address], 10/19/2025 16:07:12 10/18/20 25 10/19/2025 CBC WITH DIFFE RENTI AL/PL ATELE T MCHC 33.2 g/dL 31.5-3 5.7 normal Not Available [facility] ([facility]) [address] [place], [address], 10/19/2025 16:07:12 10/18/20 25 10/19/2025 CBC WITH DIFFE RENTI AL/PL ATELE T RDW 12.7 % 11.7-1 5.4 Not Available [facility] ([facility]) [address] [place], [address], 10/19/2025 16:07:12 10/18/20 25 10/19/2025 CBC WITH DIFFE RENTI AL/PL ATELE T platelets 220 x10e3 /uL 150-45 0 normal Not Available [facility] ([facility]) [address] [place], [address], 10/19/2025 16:07:12 10/18/20 25 10/19/2025 CBC WITH DIFFE RENTI AL/PL ATELE T neutrophils 59 % not estab. normal Not Available [facility] ([facility]) [address] [place], [address], 10/19/2025 16:07:12 10/18/20 25 10/19/2025 CBC WITH DIFFE RENTI AL/PL ATELE T lymphs 30 % not estab. normal Not Available [facility] ([facility]) [address] [facility], [place], [address], 10/19/2025 16:07:12 10/18/20 25 10/19/2025 CBC WITH DIFFE RENTI AL/PL ATELE T monocytes 8 % not estab. normal Not Available [facility] ([facility]) [address] [facility], [place], [address], 10/19/2025 16:07:12 10/18/20 25 10/19/2025 CBC WITH DIFFE RENTI AL/PL ATELE T eos 2 % not estab. normal Not Available [facility] ([facility]) [address] [facility], [place], [address], 10/19/2025 16:07:12 10/18/20 25 10/19/2025 CBC WITH DIFFE RENTI AL/PL ATELE T basos 1 % not estab. normal Not Available [facility] (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) [address] [place], [address], 10/19/2025 16:07:12 10/18/20 25 10/19/2025 CBC WITH DIFFE RENTI AL/PL ATELE T neutrophils (absolute) 4.4 x10e3 /uL 1.4-7. 0 normal Not Available [facility] ([facility]) [address] [place], [address], 10/19/2025 16:07:12 10/18/20 25 10/19/2025 CBC WITH DIFFE RENTI AL/PL ATELE T lymphs (absolute) 2.2 x10e3 /uL 0.7-3. 1 normal Not Available [facility] ([facility]) [address] [facility], [place], [address], 10/19/2025 16:07:12 10/18/20 25 10/19/2025 CBC WITH DIFFE RENTI AL/PL ATELE T monocytes(ab solute) 0.6 x10e3 /uL 0.1-0. 9 normal Not Available [facility] ([facility]) [address] [facility], [place], [address], 10/19/2025 16:07:12 10/18/20 25 10/19/2025 CBC WITH DIFFE RENTI AL/PL ATELE T eos (absolute) 0.1 x10e3 /uL 0.0-0. 4 normal Not Available [facility] ([facility]) [address] [facility], [place], [address], 10/19/2025 16:07:12 10/18/20 25 10/19/2025 CBC WITH DIFFE RENTI AL/PL ATELE T baso (absolute) 0.1 x10e3 /uL 0.0-0. 2 normal Not Available [facility] ([facility]) [address] [place], [address], 10/19/2025 16:07:12 10/18/20 25 10/19/2025 CBC WITH DIFFE RENTI AL/PL ATELE T immature granulocytes 0 % not estab. Not Available [facility] ([facility]) [address] [place], [address], 10/19/2025 16:07:12 10/18/20 25 10/19/2025 CBC WITH DIFFE RENTI AL/PL ATELE T immature grans (abs) 0.0 x10e3 /uL 0.0-0. 1 Not Available [facility] (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) [address] [facility], [place], [address], 10/19/2025 16:07:12 10/18/20 25 10/19/2025 CBC WITH DIFFE RENTI AL/PL ATELE T hematology comments: TUBULAR STOCK GLASS BULB MACHINE FORMER Not Available [facility] ([facility]) [address] [facility], [place], [address], 10/19/2025 16:07:12 10/18/20 25 10/19/2025 BASIC METAB OLIC PANEL (8) glucose 94 mg/dL 70-99 normal Not Available [facility] ([facility]) [address] [place], [address], 10/19/2025 16:07:13 10/18/20 25 10/19/2025 BASIC METAB OLIC PANEL (8) BUN 15 mg/dL 6-24 normal Not Available [facility] ([facility]) [address] [place], [address], 10/19/2025 16:07:13 10/18/20 25 10/19/2025 BASIC METAB OLIC PANEL (8) creatinine 0.91 mg/dL 0.57-1 .00 normal Not Available [facility] ([facility]) [address] [place], [address], 10/19/2025 16:07:13 10/18/20 25 10/19/2025 BASIC METAB OLIC PANEL (8) eGFR 75 mL/mi n/1.7 3 >59 normal Not Available [facility] ([facility]) [address] [place], [address], 10/19/2025 16:07:13 10/18/20 25 10/19/2025 BASIC METAB OLIC PANEL (8) BUN/creatini ne ratio 16 9-23 normal Not Available [facility] ([facility]) [address] [place], [address], 10/19/2025 16:07:13 10/18/20 25 10/19/2025 BASIC METAB OLIC PANEL (8) sodium 139 mmol/ L 134-14 4 normal Not Available [facility] ([facility]) [address] [place], [address], 10/19/2025 16:07:13 10/18/20 25 10/19/2025 BASIC METAB OLIC PANEL (8) potassium 3.6 mmol/ L 3.5-5. 2 normal Not Available [facility] ([facility]) [address] [place], [address], 10/19/2025 16:07:13 10/18/20 25 10/19/2025 BASIC METAB OLIC PANEL (8) chloride 100 mmol/ L 96-106 normal Not Available [facility] ([facility]) [address] [place], [address], 10/19/2025 16:07:13 10/18/20 25 10/19/2025 BASIC METAB OLIC PANEL (8) carbon dioxide, total 28 mmol/ L 20-29 normal Not Available [facility] ([facility]) [address] [place], [address], 10/19/2025 16:07:13 10/18/20 25 10/19/2025 BASIC METAB OLIC PANEL (8) calcium 9.5 mg/dL 8.7-10 .2 normal Not Available [facility] ([facility]) [address] [facility], [address], 10/19/2025 16:07:13 10/18/20 25 10/19/2025 ALBUM IN/CR EATIN INE RATIO ,URIN E creatinine, urine 47.2 mg/dL not estab. normal Not Available [facility] ([facility]) [address] [place], [address], 10/19/2025 16:07:13 10/18/20 25 10/19/2025 ALBUM IN/CR EATIN INE RATIO ,URIN E albumin, urine 17.3 ug/mL not estab. Not Available [facility] ([facility]) [address] [facility], [place], [address], 10/19/2025 16:07:13 10/18/20 25 10/19/2025 ALBUM IN/CR EATIN INE RATIO ,URIN E alb/creat ratio 37 mg/g_ creat 0-29 above high normal Mahogany l: 0 - 29 Moder ately incre ased: 30 - 300 Sever doni incre ased: >300 Not Available [facility] ([facility]) [address] [facility], [place], [address], 10/19/2025 16:07:13 10/18/20 25 10/19/2025 HEMOG LOBIN A1C hemoglobin A1C 8.6 % 4.8-5. 6 above high normal Predi abete s: 5.7 - 6.4 Diabe mikal: >6.4 Glyce kellee contr ol for adult s with diabe mikal: <7.0 Not Available [facility] ([facility]) [address] [facility], [place], [address], 10/19/2025 16:07:14 01/11/20 24 01/11/2024 XR, knee, 4 or more view No observ ation record ed. [email or web address] [facility] [address] [place] [address] [place], [address], 01/11/2024 17:08:20 11/15/20 25 11/15/2025 XR, ankle No observ ation record ed. [facility] [address] [facility], [place], [address], 11/15/2025 16:58:30 Result Notes None recorded. Problems Name Problem SNOMED Code Status Onset Date Resolution Date Notes Provider Name and Address Organization Details Recorded Time Cataract 406145224 Active Not Available [facility] 09/13/202 3 16:41:08 Choriore tinitis 08741947 Active Not Available [facility] 3 16:41:08 Chronic kidney disease stage 1 174492807 Active Not Available [facility] 3 16:41:08 Tobacco dependen ce syndrome 91954329 Completed 09/27/2024 Catina Horta MD [address], [place], [address] , [facility] 4 11:50:24 Type 1 diabetes mellitus 70761584 Completed 05/26/2019 Removal Reason: not specific Jackelin valladares, [facility] 9 09:14:34 Cellulit is of digit 26718223 Completed 09/19/2017 REBEKA Franco, 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 7 09:00:07 Burn of foot 79215403 Completed 05/15/2017 Nelsy valladares, 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 7 09:48:40 Closed fracture finger metacarp al 023434755 Completed 09/02/2022 Catina Horta MD [address] [facility] [address], [facility] [place], [address] , [facility] 2 07:45:31 Legal blindnes s 20690284 Active 2000 Not Available [facility] 3 16:41:08 Acute maxillar y sinusiti s 71106706 Completed 200706/20/2014 RECORDED 08/03/20 08 11:25AM BY MARGARET CONLEY ON/ADDEN DUM REBEKA Franco, [facility] 6 15:02:58 Allergic rhinitis 44680894 Completed 200706/20/2014 RECORDED 08/03/20 08 11:25AM BY MARGARET CONLEY ON/ADDEN DUM REBEKA Franco, [facility] 6 15:02:58 Infectiv e hepatiti s immuniza tion Completed 200706/20/2014 RECORDED 08/03/20 08 4:42PM BY MAC JOSUE, NURSE VISIT REBEKA Franco, [facility] 6 15:02:58 Acute maxillar y sinusiti s 71714496 Completed 200707/10/2014 RECORDED 08/03/20 08 11:25AM BY MARGARET CONLEY ON/ADDEN DUM REBEKA Franco, [facility] 6 15:02:58 Allergic rhinitis 36935209 Completed 200707/10/2014 RECORDED 08/03/20 08 11:25AM BY CHENG CONLEYATI ON/ADDEN DUM Maria Del Rosario Tylor-REBEKA Augustin, [facility] 6 15:02:58 Infectiv e hepatiti s immuniza tion Completed 200707/10/2014 RECORDED 08/03/20 08 4:42PM BY MAC JOSUE, NURSE VISIT Maria Del Rosario Snider-REBEKA Augustin, [facility] 6 15:02:58 Acute sinusiti s 85289339 Completed 200706/20/2014 RECORDED 11/20/20 08 1:51PM BY MARGARET MALIK ON/ADDEN DUM Maria Del Rosario Tylor-Ma REBEKA abarca, [facility] 6 15:02:58 Acute sinusiti s 79211473 Completed 200707/10/2014 RECORDED 11/20/20 08 1:51PM BY MARGARET MALIK ON/ADDEN DUM Maria Del Rosario Tylor-REBEKA Augustin, [facility] 6 15:02:58 Knee pain Completed 200706/20/2014 RECORDED 11/27/20 08 10:19AM BY CHENG CONLEYATI ON/ADDEN DUM Maria Del Rosario TylorREBEKA Keith, [facility] 6 15:02:58 Knee pain Completed 200707/10/2014 RECORDED 11/27/20 08 10:19AM BY REBEKA CLINE ANNOTATI ON/ADDEN DUM Maria Del Rosario Tylor-REBEKA Augustin, [facility] 6 15:02:58 Active or passive immuniza tion Completed 200806/20/2014 RECORDED 11/13/20 09 2:31PM BY AL DARNELL MD, OFFICE VISIT REBEKA Franco, [facility] 6 15:02:58 Active or passive immuniza tion Completed 200807/10/2014 RECORDED 11/13/20 09 2:31PM BY AL DARNELL MD, OFFICE VISIT REBEKA Franco, [facility] 6 15:02:58 Abdomina l pain 68592929 Completed 201206/20/2014 RECORDED 05/13/20 13 10:47AM BY BENITO SWEET I ANNOTATI ON/ADDEN DUM Maria Del Rosario Tylor-REBEKA Augustin, [facility] 6 15:02:58 Acute lymphade nitis 94096945 Completed 201206/20/2014 RECORDED 05/13/20 13 10:47AM BY BENITO SWEET I ANNOTATI ON/ADDEN DUM Maria Del Rosario Tylor-REBEKA Augustin, [facility] 6 15:02:58 Otitis media 28570356 Completed 201206/20/2014 RECORDED 05/13/20 13 10:47AM BY CHENG DIEZATI ON/ADDEN DUM Maria Del Rosario Tylor-REBEKA Augustin, [facility] 6 15:02:58 Acute pharyngi tis 365727952 Completed 201206/20/2014 RECORDED 05/13/20 13 10:47AM BY CHENG DIEZATI ON/ADDEN DUM Maria Del Rosario Tylor-REBEKA Augustin, [facility] 6 15:02:58 Screenin g for malignan t neoplasm of breast Completed 201206/20/2014 RECORDED 05/13/20 13 10:47AM BY BENITO SWEET I ANNOTATI ON/ADDEN DUM Maria Del Rosario Tylor-Rebeka abarca MA null, [facility] 6 15:02:58 Cellulit is [id number] Completed 201206/20/2014 RECORDED 05/13/20 13 10:47AM BY BENITO SWEET I, ANNOTATI ON/ADDEN DUM Maria Del Rosario Tylor-Ma ttos, [place] null, [facility] 6 15:02:58 Screenin g for malignan t neoplasm of cervix Completed 201206/20/2014 RECORDED 05/13/20 13 10:47AM BY BENITO SWEET I, ANNOTATI ON/ADDEN DUM Maria Del Rosario Tylor-Ma ttos, [place] null, [facility] 6 15:02:58 Chest pain [id number] Completed 201206/20/2014 RECORDED 05/13/20 13 10:47AM BY BENITO SWEET I, ANNOTATI ON/ADDEN DUM Maria Del Rosario Tylor-Ma ttos, [place] null, [facility] 6 15:02:58 Cough [id number] Completed 201206/20/2014 RECORDED 05/13/20 13 10:47AM BY BENITO SWEET I ANNOTATI ON/ADDEN DUM Maria Del Rosario Tylor-Ma ttos, [place] null, [facility] 6 15:02:58 Lesion of ulnar nerve 308326287 Completed 201206/20/2014 RECORDED 05/13/20 13 10:47AM BY BENITO SWEET I, ANNOTATI ON/ADDEN DUM Maria Del Rosario Tylor-Ma ttos, [place] null, [facility] 6 15:02:58 Epidermo id cyst of skin 966429607 Completed 201206/20/2014 RECORDED 05/13/20 13 10:47AM BY BENITO SWEET I ANNOTATI ON/ADDEN DUM Maria Del Rosario Tylor-Ma ttos, [place] null, [facility] 6 15:02:58 Periapic al abscess without sinus tract Completed 201206/20/2014 RECORDED 05/13/20 13 10:46AM BY BENITO SWEET I ANNOTATI ON/ADDEN DUM Maria Del Rosario Tylor-Ma ttos, [place] null, [facility] 6 15:02:58 Dental caries 51943060 Completed 201206/20/2014 RECORDED 05/13/20 13 10:47AM BY MARGARET DIEZ ON/ADDEN DUM Maria Del Rosario REBEKA Garcia, [facility] 6 15:02:58 Dysuria 29829661 Completed 201206/20/2014 RECORDED 05/13/20 13 10:46AM BY MARGARET DIEZ ON/ADDEN DUM Maria Del Rosario REBEKA Garcia, [facility] 6 15:02:58 Essentia l hyperten justo 32236271 Completed 201206/20/2014 RECORDED 05/13/20 13 10:46AM BY MARGARET DIEZ ON/ADDEN DUM [email or web address] 4 21:53:34 Dysfunct ion of eustachi an tube 63616500 Completed 201206/20/2014 RECORDED 05/13/20 13 10:46AM BY MARGARET DIEZ ON/ADDEN DUM REBEKA Franco, [facility] 6 15:02:58 Pain in eye Completed 201206/20/2014 STORY: PROSTHES IS/ NEEDS SURGERY/ TRAY[place]; RECORDED 05/13/20 13 10:46AM BY MARGARET DIEZ ON/ADDEN DUM REBEKA Franco, [facility] 6 15:02:58 Follow-u p encounte r Completed 201206/20/2014 RECORDED 05/13/20 13 10:46AM BY MARGARET DIEZ ON/ADDEN DUM REBEKA Franco, [facility] 6 15:02:58 Injury of knee 535135351 Completed 201206/20/2014 RECORDED 05/13/20 13 10:46AM BY BENITO SWEET I ANNOTATI ON/ADDEN DUM Maria Del Rosario Tylor-Ma REBEKA abarca, [facility] 6 15:02:58 Herpes zoster 4233307 Completed 201206/20/2014 RECORDED 05/13/20 13 10:46AM BY BENITO SWEET I ANNOTATI ON/ADDEN DUM Maria Del Rosario Tylor-Ma ttREBEKA chase, [facility] 6 15:02:58 Lymphade nopathy 83146010 Completed 201206/20/2014 RECORDED 05/13/20 13 10:46AM BY BENITO SWEET I ANNOTATI ON/ADDEN DUM Maria Del Rosario Tylor-Ma REBEKA abarca, [facility] 6 15:02:58 Migraine 11662390 Completed 201206/20/2014 RESOLVED DATE: 05/13/20 13; RECORDED 05/13/20 13 10:46AM BY CHENG DIEZATI ON/ADDEN DUM Maria Del Rosario Tylor-Ma REBEKA abarca, [facility] 6 15:02:58 Pain of joint of wrist [id number] Completed 201206/20/2014 RECORDED 05/13/20 13 10:46AM BY BENITO SWEET I ANNOTATI ON/ADDEN DUM Maria Del Rosario Tylor-REBEKA [place], [facility] 6 15:02:58 Pain of joint [id number] Completed 201206/20/2014 RECORDED 05/13/20 13 10:47AM BY BENITO SWEET I ANNOTATI ON/ADDEN DUM Maria Del Rosario Tylor-Ma REBEKA abarca, [facility] 6 15:02:58 Pain in limb [id number] Completed 201206/20/2014 RECORDED 05/13/20 13 10:47AM BY BENITO SWEET I ANNOTATI ON/ADDEN DUM Maria Del Rosario Tylor-Ma REBEKA abarca, [facility] 6 15:02:58 Palpitat ions [id number] Completed 201206/20/2014 RECORDED 05/13/20 13 10:47AM BY BENITO SWEET I ANNOTATI ON/ADDEN DUM Maria Del Rosario Tylor-Ma REBEKA abarca null, [facility] 6 15:02:58 Cellulit is of digit [id number] Completed 201206/20/2014 RECORDED 05/13/20 13 10:46AM BY BENITO SWEET I ANNOTATI ON/ADDEN DUM Maria Del Rosario Tylor-Rebeka abarca MA null, [facility] 7 09:00:03 Peptic ulcer 02309459 Completed 201206/20/2014 RECORDED 05/13/20 13 10:46AM BY BENITO SWEET I ANNOTATI ON/ADDEN DUM Maria Del Rosario Tylor-Ma REBEKA abarca, [facility] 6 15:02:58 Proteinu isrrael [id number] Completed 201206/20/2014 RECORDED 05/13/20 13 10:47AM BY CHENG DIEZATI ON/ADDEN DUM Maria Del Rosario Tylor-REBEKA Augustin, [facility] 6 15:02:58 Gastroes ophageal reflux disease [id number] Completed 201206/20/2014 RECORDED 05/13/20 13 10:47AM BY CHENG DIEZATI ON/ADDEN DUM Maria Del Rosario Tylor-Rebeka abarca MA null, [facility] 6 15:02:58 Chronic rhinitis 06271052 Completed 201206/20/2014 RECORDED 05/13/20 13 10:47AM BY BENITO SWEET I ANNOTATI ON/ADDEN DUM Maria Del Rosario Tylor-Ma tevin, REBEKA null, [facility] 6 15:02:58 Adult health examinat ion Completed 201206/20/2014 RECORDED 05/13/20 13 10:46AM BY BENITO SCHULTZK I, ANNOTATI ON/ADDEN DUM Maria Del Rosario Tylor-REBEKA Augustin, [facility] 6 15:02:58 Type 1 diabetes mellitus 70397793 Completed 201206/20/2014 RECORDED 05/13/20 13 10:47AM BY BENITO SWEET I ANNOTATI ON/ADDEN DUM Jackelin Chen null, [facility] 9 09:14:34 Uncontro lled type 1 diabetes mellitus 947396076 Completed 201206/20/2014 RECORDED 05/13/20 13 10:46AM BY BENITO SWEET I ANNOTATI ON/ADDEN DUM Maria Del Rosario Tylor-REBEKA Augustin, [facility] 6 15:02:58 Uncontro lled type 2 diabetes mellitus 235208325 Completed 201206/20/2014 RESOLVED DATE: 05/13/20 13; RECORDED 05/13/20 13 10:47AM BY CHENG DIEZATI ON/ADDEN DUM Maria Del Rosario Tylor-REBEKA Augustin, [facility] 6 15:02:58 Increase d frequenc y of urinatio n 629352299 Completed 201206/20/2014 RECORDED 05/13/20 13 10:47AM BY CHENG DIEZATI ON/ADDEN DUM Maria Del Rosario Tylor-REBEKA Augustin, [facility] 6 15:02:58 Metamorp hopsia 58428109 Completed 201206/20/2014 RECORDED 05/13/20 13 10:47AM BY BENITO SWEET I ANNOTATI ON/ADDEN DUM Maria Del Rosario Tylor-Ma REBEKA abarca, [facility] 6 15:02:58 Abdomina l pain 08383428 Completed 201207/10/2014 RECORDED 05/13/20 13 10:47AM BY BENITO SWEET I ANNOTATI ON/ADDEN DUM Maria Del Rosario Tylor-Ma REBEKA abarca, [facility] 6 15:02:58 Acute lymphade nitis 77344661 Completed 201207/10/2014 RECORDED 05/13/20 13 10:47AM BY BENITO SWEET I, ANNOTATI ON/ADDEN DUM Maria Del Rosario Tylor-Ma ttos, MA null, [facility] 6 15:02:58 Otitis media 80291451 Completed 201207/10/2014 RECORDED 05/13/20 13 10:47AM BY BENITO SWEET I ANNOTATI ON/ADDEN DUM Maria Del Rosario Tylor-Ma ttos, [place] null, [facility] 6 15:02:58 Acute pharyngi tis 506631586 Completed 201207/10/2014 RECORDED 05/13/20 13 10:47AM BY BENITO SWEET I ANNOTATI ON/ADDEN DUM Maria Del Rosario Tylor-Ma ttos, MA null, [facility] 6 15:02:58 Screenin g for malignan t neoplasm of breast Completed 201207/10/2014 RECORDED 05/13/20 13 10:47AM BY BENITO SWEET I ANNOTATI ON/ADDEN DUM Maria Del Rosario Tylor-Ma ttos, [place] null, [facility] 6 15:02:58 Cellulit is [id number] Completed 201207/10/2014 RECORDED 05/13/20 13 10:47AM BY BENITO SWEET I ANNOTATI ON/ADDEN DUM Maria Del Rosario Tylor-Ma ttos, [place] null, [facility] 6 15:02:58 Screenin g for malignan t neoplasm of cervix Completed 201207/10/2014 RECORDED 05/13/20 13 10:47AM BY BENITO SWEET I ANNOTATI ON/ADDEN DUM Maria Del Rosario Tylor-Ma ttos, MA null, [facility] 6 15:02:58 Chest pain 09212918 Completed 201207/10/2014 RECORDED 05/13/20 13 10:47AM BY BENITO SWEET I ANNOTATI ON/ADDEN DUM Maria Del Rosario Tylor-Ma ttosREBEKA, [facility] 6 15:02:58 Cough 63594144 Completed 201207/10/2014 RECORDED 05/13/20 13 10:47AM BY BENITO SWEET I, ANNOTATI ON/ADDEN DUM Maria Del Rosario Tylor-Ma ttos, REBEKA valladares, [facility] 6 15:02:58 Lesion of ulnar nerve 608730862 Completed 201207/10/2014 RECORDED 05/13/20 13 10:47AM BY BENITO SWEET I ANNOTATI ON/ADDEN DUM Maria Del Rosario Tylor-Ma tevin, REBEKA valladares, [facility] 6 15:02:58 Epidermo id cyst of skin 177573155 Completed 201207/10/2014 RECORDED 05/13/20 13 10:47AM BY BENITO SWEET I ANNOTATI ON/ADDEN DUM Maria Del Rosario Tylor-Ma ambrocioosREBEKA, [facility] 6 15:02:58 Periapic al abscess without sinus tract Completed 201207/10/2014 RECORDED 05/13/20 13 10:46AM BY BENITO SWEET I ANNOTATI ON/ADDEN DUM Maria Del Rosario Tylor-Ma REBEKA abarca, [facility] 6 15:02:58 Dental caries 57229702 Completed 201207/10/2014 RECORDED 05/13/20 13 10:47AM BY BENITO SWEET I ANNOTATI ON/ADDEN DUM Maria Del Rosario Tylor-Ma ttosERBEKA, [facility] 6 15:02:58 Dysuria 05980073 Completed 201207/10/2014 RECORDED 05/13/20 13 10:46AM BY BENITO SWEET I ANNOTATI ON/ADDEN DUM Maria Del Rosario Tylor-Ma ttos, REBEKA valladares, [facility] 6 15:02:58 Dysfunct ion of eustachi an tube 55637848 Completed 201207/10/2014 RECORDED 05/13/20 13 10:46AM BY MARGARET DIEZ ON/ADDEN DUM Maria Del Rosario Tylor-REBEKA Aguustin, [facility] 6 15:02:58 Pain in eye Completed 201207/10/2014 STORY: PROSTHES IS/ NEEDS SURGERY/ [place]; RECORDED 05/13/20 13 10:46AM BY MARGARET DIEZ ON/ADDEN DUM Maria Del Rosario Tylor-REBEKA Augustin, [facility] 6 15:02:58 Follow-u p encounte r Completed 201207/10/2014 RECORDED 05/13/20 13 10:46AM BY MARGARET DIEZ ON/ADDEN DUM Maria Del Rosario Tylor-REBEKA Augustin, [facility] 6 15:02:58 Injury of knee 538686634 Completed 201207/10/2014 RECORDED 05/13/20 13 10:46AM BY MARGARET DIEZ ON/ADDEN DUM Maria Del Rosario Tylor-REBEKA Augustin, [facility] 6 15:02:58 Herpes zoster 3548859 Completed 201207/10/2014 RECORDED 05/13/20 13 10:46AM BY MARGARET DIEZ ON/ADDEN DUM Maria Del Rosario TylorREBEKA Keith, [facility] 6 15:02:58 Lymphade nopathy 56618537 Completed 201207/10/2014 RECORDED 05/13/20 13 10:46AM BY MARGARET DIEZ ON/ADDEN DUM Maria Del Rosario Tylor-REBEKA Augustin, [facility] 6 15:02:58 Migraine 53156072 Completed 201207/10/2014 RESOLVED DATE: 05/13/20 13; RECORDED 05/13/20 13 10:46AM BY CHENG DIEZATI ON/ADDEN DUM Maria Del Rosario Tylor-REBEKA Augustin, [facility] 6 15:02:58 Pain of joint of wrist 081440481 Completed 201207/10/2014 RECORDED 05/13/20 13 10:46AM BY BENITO SWEET I ANNOTATI ON/ADDEN DUM Maria Del Rosario Tylor-Ma REBEKA abarca, [facility] 6 15:02:58 Pain of joint 70542944 Completed 201207/10/2014 RECORDED 05/13/20 13 10:47AM BY BENITO SWEET I ANNOTATI ON/ADDEN DUM Maria Del Rosario Tylor-Ma REBEKA abarca, [facility] 6 15:02:58 Pain in limb 54015283 Completed 201207/10/2014 RECORDED 05/13/20 13 10:47AM BY BENITO SWEET I ANNOTATI ON/ADDEN DUM Maria Del Rosario Tylor-REBEKA Augustin, [facility] 6 15:02:58 Palpitat ions 96354683 Completed 201207/10/2014 RECORDED 05/13/20 13 10:47AM BY CHENG DIEZATI ON/ADDEN DUM Maria Del Rosario Tylor-REBEKA Augustin, [facility] 6 15:02:58 Peptic ulcer 87640381 Completed 201207/10/2014 RECORDED 05/13/20 13 10:46AM BY BENITO SWEET I ANNOTATI ON/ADDEN DUM Maria Del Orsario Tylor-REBEKA Augustin, [facility] 6 15:02:58 Proteinu isrrael 86352494 Completed 201207/10/2014 RECORDED 05/13/20 13 10:47AM BY BENITO SWEET I ANNOTATI ON/ADDEN DUM Maria Del Rosario Tylor-Ma REBEKA abarca null, [facility] 6 15:02:58 Gastroes ophageal reflux disease 396933584 Completed 201207/10/2014 RECORDED 05/13/20 13 10:47AM BY BENITO SWEET I ANNOTATI ON/ADDEN DUM Maria Del Rosario Tylor-REBEKA Augustin, [facility] 6 15:02:58 Type 1 diabetes mellitus 17017915 Completed 201207/10/2014 RECORDED 05/13/20 13 10:47AM BY BENITO SWEET I ANNOTATI ON/ADDEN DUM Jackelin Chen jacquelyn, [facility] 9 09:14:34 Uncontro lled type 1 diabetes mellitus 729365891 Completed 201207/10/2014 RECORDED 05/13/20 13 10:46AM BY CHENG DIEZATI ON/ADDEN DUM Maria Del Rosario Tylor-REBEKA Augustin, [facility] 6 15:02:58 Uncontro lled type 2 diabetes mellitus 969244307 Completed 201207/10/2014 RESOLVED DATE: 05/13/20 13; RECORDED 05/13/20 13 10:47AM BY CHENG DIEZATI ON/ADDEN DUM Maria Del Rosario REBEKA Garcia, [facility] 6 15:02:58 Increase d frequenc y of urinatio n 140432102 Completed 201207/10/2014 RECORDED 05/13/20 13 10:47AM BY CHENG DIEZATI ON/ADDEN DUM Maria Del Rosario TylorREBEKA Keith, [facility] 6 15:02:58 Metamorp hopsia 86420781 Completed 201207/10/2014 RECORDED 05/13/20 13 10:47AM BY CHENG DIEZATI ON/ADDEN DUM Maria Del Rosario Tylor-REBEKA Augustin, [facility] 6 15:02:58 Influenz a vaccine needed 84155400229 06 Completed 201206/20/2014 RECORDED 11/08/20 13 2:24PM BY IFTIKHAR PATEL MA, ANNOTTANNER ON/ADDEN DUM Maria Del Rosario Tylor-Ma REBEKA abarca, [facility] 6 15:02:58 Enthesop athy of hip region 61471801 Completed 201206/20/2014 RECORDED 11/08/20 13 2:24PM BY IFTIKHAR PATEL MA, MARGARET ON/ADDEN DUM Maria Del Rosario Tylor-REBEKA Augustin, [facility] 6 15:02:58 Pain of hip region 60833034 Completed 201206/20/2014 RECORDED 11/08/20 13 2:24PM BY IFTIKHAR PATEL MA, ANNOTATI ON/ADDEN DUM Maria Del Rosario Tylor-REBEKA Augustin, [facility] 6 15:02:58 Pre-surg brigid evaluati on Completed [...] ON/ADDEN DUM Maria Del Rosario Tylor-REBEKA Augustin, [facility] 6 15:02:58 Influenz a vaccine needed 82250633151 06 Completed 201207/10/2014 RECORDED 11/08/20 13 2:24PM BY IFTIKHAR PATEL MA, ANNOTATI ON/ADDEN DUM Maria Del Rosario Tylor-Ma REBEKA abarca, [facility] 6 15:02:58 Enthesop athy of hip region 65173760 Completed 201207/10/2014 RECORDED 11/08/20 13 2:24PM BY IFTIKHAR PATEL MA, ANNOTATI ON/ADDREBEKA Roberts, [facility] 6 15:02:58 Pain of hip region 34884388 Completed 201207/10/2014 RECORDED 11/08/20 13 2:24PM BY IFTIKHAR PATEL MA, ANNOTATI ON/ADDEN REBEKA Baker, [facility] 6 15:02:58 Pre-surg brigid evaluati on Completed 201207/10/2014 IMPRESSI ON: IONA IS AT LOW CARDIOPU [...] 13 2:23PM BY IFTIKHAR PATEL MA, ANNOTATI ON/ADDJOHN abarca MA null, [facility] 6 15:02:58 Injury of foot 359133226 Completed 201706/23/2018 Nelsy Boyd MA null, [facility] 8 13:32:31 Pain of shoulder region 84325743 Completed 201709/27/2024 Catina Horta MD [address] [address], [facility] [place], [address] , [facility] 4 11:50:07 Tendinit is of left shoulder 82239465755 54810 Completed 201709/27/2024 With labral tear Catina Horta MD [address], [place], [address] , [facility] 4 11:50:10 Peripher al vascular disease 677096525 Active 2018 Not Available [facility] 3 16:41:08 Mixed hyperlip idemia 050479418 Active 2018 Not Available [facility] 3 16:41:08 Myocardi al infarcti on 93706406 Completed 201809/02/2022 Catina Horta MD [address], [place], [address] , [facility] 2 07:44:28 Heart failure 50925976 Active 2018 Not Available [facility] 3 16:41:08 Cardiomy opathy 06632807 Active 2018 Not Available [facility] 3 16:41:08 Prolifer ative retinopa thy due to type 1 diabetes mellitus 88219014526 101 Active 2018 Not Available [facility] 3 16:41:08 Liver enzymes outside referenc e range 240791458 Active 2018 Not Available [facility] 3 16:41:08 Pain in right lower limb 637645874 Completed 202109/27/2024 Catina Horta MD [address], [place], [address] , [facility] 4 11:49:48 Pain in left lower limb 702612741 Completed 202109/27/2024 Catina Horta MD [address], [place], [address] , [facility] 4 11:49:46 History of myocardi al infarcti on 821843203 Active 2021 Not Available [facility] 3 16:41:08 History of diabetic foot ulcer 81448310372 132881 Active 2021 Not Available [facility] 3 16:41:08 Ex-smoke r 7345757 Active 2023 Catina Horta MD [address] [facility] [address], [place], [address] , [facility] 4 11:50:29 Hyperten sive renal disease 16156706 Active [address] [facility] 4 21:53:47 Problem Notes None recorded. Procedures Surgical History Date Name Laterality Status Provider Name and Address Organization Details Recorded Time 09/27/20 24 Diabetic Foot Exam (Monofilament) completed Catina Horta MD [address] [facility] [address], [place], [address], [facility] 09/27/2024 12:06:54 12/22/19 23 Diabetic Foot Exam (Monofilament) completed Catina Hotra MD [address] [facility] [address], [place], [address], [facility] 12/22/2022 14:30:11 03/13/20 21 Most Recent Mammogram completed Maria Del Rosario arce MA [facility] 10/14/2022 14:17:59 03/13/20 21 Mammogram screening completed Maria Del Rosario arce MA [facility] 10/14/2022 14:18:17 07/18/20 19 repair of artery using vein graft completed Camilla Orlando [facility] 07/21/2019 09:34:30 07/18/20 19 Cardiac Surgery completed Anjelica Barajas MA [facility] 10/25/2021 09:22:29 01/29/20 19 Angioplasty completed Anjelica Barajas MA [facility] 10/25/2021 09:22:29 08/30/20 15 Incise finger tendon sheath completed Maria Del Rosario arce MA [facility] 12/11/2015 15:06:12 11/30/19 12 Eye Surgery completed Maria Del Rosario arce MA [facility] 12/11/2015 15:08:06 05/30/20 10 Breast Biopsy completed Anjelica Barajas MA [facility] 10/25/2021 09:22:29 06/08/20 Caesarean Section completed Anjelica Barajas MA [facility] 10/25/2021 09:22:29 08/30/20 00 Eye Surgery completed Anjelica Barajas MA [facility] 10/25/2021 09:22:29 Carpal tunnel surgery completed Anjelica Barajas MA [facility] 10/25/2021 09:22:29 Anesth arthroscopy of hip completed Anjelica Barajas MA [facility] 10/25/2021 09:22:29 Revise ulnar nerve at elbow completed Anjelica Barajas MA [facility] 10/25/2021 09:22:29 Imaging Results None recorded. Procedure [...] ry distress Not available Not available 02/16/2015 97718 8003 SNOMED Natty Palacios, [facility] [address], [address] [place] [address] 5 10:23:10 40004 Silvadene medicatio n itching Not available Not available 12/11/2015 [address] [facility] 6 15:04:46 03716 ciproflox acin medicatio n Not available Not available Not available 01/07/20192015 [address] [facility] 9 14:44:12 04386 penicilli n V potassium medicatio n Not available Not available Not available 01/07/2019201519 5 RxNorm REBEKA Wallace, [facility] 2 13:51:09 02203 bupropion hydrochlo ride medicatio n Not available Not available Not available 01/07/20192015 73211 4 RxNorm Other react ions and sever ities : 'Unkn own'. LC Rodgers, [facility] 9 14:44:12 25335 metronida zole medicatio n anaphylax is severe Not available 01/07/20192015 6922 RxNorm LC Rodgers, [facility] 9 14:44:12 66294 silver sulfadiaz ine medicatio n itching Not available Not available 01/07/2019 9793 RxNorm LC Rodgers, [facility] 9 14:44:12 93932 morphine medicatio n nausea Not available Not available 10/30/20212020 7052 RxNorm REBEKA Wallace, [facility] 1 10:17:20 8909 Cipro medicatio n Not available Not available Not available 06/13/201407754 3 RxNorm REBEKA Wallace, [facility] 2 13:51:01 8910 Flagyl medicatio n Not available Not available Not available 06/13/201432867 6 RxNorm Natty Palacios PASUP [address], [place], [address], [facility] 5 10:23:10 8911 Product containin g penicilli n (product) medicatio n respirato ry distress Not available Not available 06/13/2014 96747 8001 SNOMED Natty Palacios PASUP [address], [place], [address], [facility] 5 10:23:10 8912 Wellbutri n medicatio n Not available Not available Not available 06/13/2014 33633 RxNorm Catina Horta MD [address] [facility] [address], [place], [address], [facility] 4 11:49:00 Medications Name Sig Start Date [...] ON AUTO-JOHN CTIVATIO N;PT 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 STARTING MED ON MARCH 21 Not [...] completed Not Available Not Available Not Available Jacquefran Ramya 28 gauge 11/19 completed Not Available Not [...] 09 11:27AM BY AL DARNELL MD, MARGARET ON/ADD DUM; [...] Available Not Available Nasonex 50 mcg/actua tion [place] DAILY 03/18 completed RECORDED 03/18/20 10 3:13PM BY MARGARET BURGESS ON/ADDJOHN DUM;EACH NOSTRIL Not Available Not Available Not [...] RECORDED 03/18/20 10 3:13PM BY MARGARET BURGESS ON/ERNESTINE GIRALDO; Not Available Not Available Not Available nicotine [...] RECORDED 07/04/20 08 10:37AM BY EMMIE HOWELL, MARGARET ON/ADDEN DUM; Not Available Not Available Not Available hydrocodo ne 5 mg-acetam inophen 300 mg tablet Take 1 tablet every 4-6 hours by oral route for 5 days. 09/19 completed Not Available Not Available Not Available varenicli ne tartrate 1 mg tablet 03/30 completed Not Available Not Available Not Available BD Ultra-Fin e Short Pen Needle 31 gauge x 5/16 Take 5 needles every day by miscell. [...] e Sandra Pen Needle 32 gauge x 5/32 03/30 completed Not Available Not Available Not Available Chantix Starting Month Box 0.5 mg (11)-1 mg (42) tablets in dose pack DAILY 03/30 completed Not Available Not Available Not Available [place] DM Cough 10 mg-100 mg/5 mL oral [...] completed Not Available Not Available Not Available Basaglar KwikPen U-100 Insulin 100 unit/mL (3 mL) [...] Available Not Available Not Available Dexcom G7 Frog Catcher active Not Available Not Available Not Available [...] Not Available Vitals Date Recorded Body height Provider Name an d Address Organization Details Last Updated DateTime 01/20/2024 156.21 cm Jaky Faith Robert [facility] 01/20/2024 15:54:53 Date Recorded Body height Systolic And Diastolic Provider Name and Address Organization Details Last Updated DateTime 06/10/2023 156.21 cm 114/71 mm[Hg] Maria Del Rosario Márquez MA [facility] 06/10/2023 16:00:42 Date Recorded Body height Body mass index (BMI) Body weight Heart rate Oxygen saturation Body temperature Systolic And Diastolic Provider Name and Address Organization Details Last Updated DateTime 4 156.21 cm 24.4 kg/m2 45910.6 g 81 /min 96 % 98 [degF] 126/58 mm[Hg] Maria Del Rosario osborn [facility] 4 11:39:43 Date Recorded Body height Body mass index (BMI) Body weight Heart rate Oxygen saturation Body temperature Systolic And Diastolic Provider Name and Address Organization Details Last Updated DateTime 5 156.21 cm 22.9 kg/m2 89548.8 6 g 82 /min 96 % 97.3 [degF] 120/62 mm[Hg] Avelino seo [facility] 5 08:54:26 Date Recorded Body height Body mass index (BMI) Body weight Heart rate Oxygen saturation Body temperature Systolic And Diastolic Provider Name and Address Organization Details Last Updated DateTime 4 156.21 cm 24.7 kg/m2 86362.4 9 g 79 /min 97 % 98.4 [degF] 134/66 mm[Hg] Carolyn Schuler LPN [facility] 4 14:29:04 Social History Question Answer Notes LastModified by Organizat ion Details LastModified Time Tobacco Smoking Status Former Smoker Not since 2018 REBEKA Calzada, [facility] 09/02/2022 14:03:48 Do You Have An Advance Directive? Yes [email or web address] Information not available 10/25/2021 Is Blood Transfusion Acceptable In An Emergency? Yes Information not available 12/11/2015 What Is Your Level Of Caffeine Consumption? Moderate 1-2 Cups Of Coffee Daily Information not available 12/22/2022 How Much Tobacco Do You Chew? None Information not available 12/11/2015 What Type Of Diet Are You Following? CARDIAC [email or web address] Information not available 10/25/2021 Which Illicit Or Recreational Drugs Have You Used? None Information not available 12/11/2015 When Did You Quit Smoking? 1-5yearssin concha crookte [email or web address] Information not available 10/25/2021 Live Alone Or With Others? With Others (Tawanda) And 2 Children [email or web address] Information not available 10/25/2021 Do You Take Precautions To Prevent Distracted Driving? Yes Information not available 12/11/2015 How Often Do You Need To Have Someone Help You When You Read Instructions, Pamphlets, Or Other Written Material From Your Doctor Or Pharmacy? Always Information not available 10/25/2021 Have You Served In The ? No Information not available 09/19/2017 To The Best Of Your Knowledge Have You Been In Close Proximity To Any Individual Who Tested Positive For COVID-19? No [email or web address] Information not available 10/25/2021 What Was The [...] Seat Belt Or Car Seat Routinely? Yes [email or web address] Information not available 10/25/2021 Seat Belts Used Routinely Yes [email or web address] Information not available 10/25/2021 Are You Sexually Active? Yes Information not available 12/11/2015 Smoke Alarm In Home Yes [email or web address] Information not available 10/25/2021 Do You Have Smoke And Carbon Monoxide Detectors In Your Home? Yes [email or web address] Information not available 10/25/2021 At What Age Did You Start Smoking Tobacco? 18 [email or web address] Information not available 03/20/2015 Are You Passively Exposed To Smoke? No Information not available 12/11/2015 How Much Tobacco Do You Smoke? 0.25 PPD Information not available 10/25/2021 General Stress Level High Information not available 10/25/2021 Do You Use Sunscreen Routinely? No [email or web address] Information not available 10/25/2021 How Many Years [...] is your level of alcohol consumption? None Information not available 10/25/2021 Do you or have you ever used smokeless tobacco? Never used smokeless tobacco [email or web address] Information not available 10/25/2021 Are you currently employed? No legally blind Information not available 09/27/2024 Are you able to walk independently without assistance or assistive devices? [email or web address] Information not available 10/30/2021 Are you able to care for yourself independently? 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 Moderate 5 x week; walking Information not available 09/27/2024 Mental Status None recorded. Family History Relationship Description Onset Age of this Age Resolved Age Notes LastModified by Organization Details LastModified Time Mother Carcinoma in situ of breast Not available 2020 09:21:39 Mother Malignant neoplasm of breast [email or web address] Not available 2020 09:21:39 Father Hypertensive disorder [email or web address] Not available 14:52:35 Father Aneurysm of cerebral artery Not available 2020 09:21:39 Father Temporal arteritis 76 [email or web address] Not available 2020 09:21:39 Father Arthritis [email or web address] Not availabl e 10/25/2021 09:21:39 Father Cerebrovascu lar accident Not available 09:21:39 Father Heart disease Not available 2020 09:21:39 Notes:No FH of colon cancer Medical History Condition Response Diabetes Y Heart Problems Y Vision or Eye Problems Y Kidney Stones Y Hospitalizations Y Congestive Heart Failure (CHF) Y Hypertension Y Allergies Y Chicken Pox Y Gynecological History Statement/Question Response Most Recent Mammogram 03/13/2021 Obstetrics History GPAL:G 0 P 0 0 0 0 Immunizations Vaccine Type Date Status Note Provider Nam e and Address Organization Details Recorded Time Td (adult) 4 completed Not Available [facility] 08/12/2023 16:41:09 COVID-19, mRNA, LNP-S, PF, 30 mcg/0.3 mL dose 1 completed Not Available [facility] 08/12/2023 16:41:08 COVID-19, mRNA, LNP-S, PF, 30 mcg/0.3 mL dose 1 completed Not Available [facility] 08/12/2023 16:41:08 Influenza, split virus, quadrivalent, PF 7 completed Not Available [facility] 08/12/2023 16:41:09 Influenza, split virus, quadrivalent, PF 8 completed Not Available [facility] 08/12/2023 16:41:09 Tdap 5 completed Not Available [facility] 08/12/2023 16:41:08 Tdap 5 completed Not Available [facility] 10/02/2025 08:46:55 Influenza, split virus, quadrivalent, PF 9 completed Not Available [facility] 12/17/2019 02:22:10 Influenza, split virus, quadrivalent, PF 3 completed Catina Horta MD [address], [address], [facility] 12/22/2022 14:31:02 pneumococcal polysaccharide PPV23 1 completed Not Available [facility] 08/12/2023 16:41:08 Influenza, split virus, trivalent, preservative 4 completed Not Available [facility] 08/12/2023 16:41:08 Influenza, split virus, trivalent, preservative 7 completed Not Available [facility] 08/12/2023 16:41:09 Hep B, adult 8 completed Not Available [facility] 08/12/2023 16:41:09 Influenza, split virus, trivalent, preservative 8 completed Not Available [facility] 08/12/2023 16:41:09 Influenza, split virus, trivalent, preservative 9 completed Not Available [facility] 08/12/2023 16:41:08 pneumococcal polysaccharide PPV23 9 completed Not Available [facility] 08/12/2023 16:41:08 influenza, seasonal, intradermal, preservative free 3 completed Not Available [facility] 08/12/2023 16:41:09 Tdap 3 completed Not Available [facility] 08/12/2023 16:41:08 Influenza, split virus, trivalent, PF 4 completed Catina Horta MD [address], [address], [facility] 09/27/2024 11:54:05 Past Encounters Encounter ID Performer Location Encounter Start Date Encounter Closed Date Diagnosis/Indication Diagnosis SNOMED-CT Code Diagnosis ICD10 Code Diagnosis IMO Codes Diagnosis Note [id number] [facility] [address] [facility] [place] [address] 01/22/2007 00:00:00 [id number] autoEComm erce [address] [facility] [address] [place] [address] 09/04/2006 00:00:00 [id number] autoEComm erce [address] [facility] [address] [place] [address] 07/07/2006 00:00:00 [id number] [place] [address] 05/29/2006 00:00:00 [id number] [facility] erce [address] [place] [address] 09/17/2007 00:00:00 [id number] autoEComm erce [address] [facility] [address] [place] [address] 01/12/2008 00:00:00 [id number] autoEComm erce [address] [facility] [address] [place] [address] 03/30/2008 00:00:00 [id number] autoEComm erce [address] [facility] [address] [place] [address] 04/20/2008 00:00:00 [id number] autoEComm erce [address] [facility] [place] [address] 05/12/2008 00:00:00 [id number] autoEComm erce [address] [facility] [place] [address] 07/04/2008 00:00:00 [id number] autoEComm erce [address] [facility] [place] [address] 08/07/2008 00:00:00 [id number] autoEComm erce [address] [facility] [place] [address] 10/24/2008 00:00:00 [id number] autoEComm erce [address] [facility] [place] [address] 11/13/2008 00:00:00 [id number] autoEComm erce [address] [facility] [place] [address] 11/20/2008 00:00:00 [id number] autoEComm erce [address] [facility] [place] [address] 11/27/2008 00:00:00 [id number] autoEComm erce [address] [facility] [place] [address] 07/05/2009 00:00:00 [id number] auto[facility]Comm erce [address] [place] [address] 07/17/2009 00:00:00 [id number] autoEComm erce [address] [place] [address] 08/16/2009 00:00:00 [id number] auto[employer] erce [address] [place] [address] 11/13/2009 00:00:00 [id number] autoEComm erce [address] [place] [address] 12/18/2009 00:00:00 [id number] autoEComm erce [address] [place] [address] 12/27/2009 00:00:00 [id number] autoEComm erce [address] [facility] [address] [place] [address] 03/13/2010 00:00:00 [id number] autoEComm erce [address] [facility] [address] [place] [address] 04/08/2010 00:00:00 [id number] autoEComm erce [address] [facility] [address] [place] [address] 04/10/2010 00:00:00 [id number] autoEComm erce [address] [facility] [place] [address] 05/27/2010 00:00:00 [id number] autoEComm erce [address] [facility] [address] [place] [address] 06/27/2010 00:00:00 [id number] autoEComm erce [address] [facility] [address] [place] [address] 08/19/2010 00:00:00 [id number] autoEComm erce [address] [facility] [address] [place] [address] 08/23/2010 00:00:00 [id number] autoEComm erce [address] [facility] [address] [place] [address] 08/27/2010 00:00:00 [id number] autoEComm erce [address] [facility] [address] [place] [address] 12/10/2010 00:00:00 [id number] autoEComm erce [address] [facility] [address] [place] [address] 01/31/2011 00:00:00 [id number] autoEComm erce [address] [facility] [address] [place] [address] 02/03/2011 00:00:00 [id number] autoEComm erce [address] [facility] [place] [address] 02/07/2011 00:00:00 [id number] autoEComm erce [address] [facility] [address] [place] [address] 02/11/2011 00:00:00 [id number] autoEComm erce [address] [facility] [place] [address] 10/07/2011 00:00:00 [id number] autoEComm erce [address] [facility] [place] [address] 03/08/2012 00:00:00 [id number] autoEComm erce [address] [facility] [place] [address] 03/25/2012 00:00:00 [id number] autoEComm erce [address] [facility] [place] [address] 05/04/2012 00:00:00 [id number] autoEComm erce [address] [facility] [place] [address] 05/13/2013 00:00:00 [id number] autoEComm erce [address] [facility] [place] [address] 08/09/2013 00:00:00 [id number] autoEComm erce [address] [facility] [place] [address] 11/08/2013 00:00:00 [id number] Natty Palacios [facility] Office [address] [place] [address] 03/20/2015 12:56:14 03/20/2015 13:57:31 Heart murmur [id number] Systolic murmur. New onset, no decreased exercise tolerance, but, she has been feeling more tired than usual. Will refer to cardiology and get echocardio gram ordered. Normal EKG in office- unchanged from last EKG done 07/2013. Had labs done at Endocrine office 03/05- electrolyt es WNL, ALT 18, AST 25, TSH 1.02. Albumin/ creatinine ratio was 133- high. Essential hypertension 91995094 Normal AST/ ALT, taking lisinopril every other day, she has been stressed about murmur and findings on mammogram, will have her f/u in 3 months for PE and recheck of BP, may need to increase lisinopril to daily/ increase dose. Hyperlipid emia screening 331844797 overdue for lipid panel Chronic ki dney disease stage 1 [id number] Type 1 magdy betes mellitus 02840719 Patient is very active, runs/ walks 3 miles per day, is not overweight , however, last A1C was 10.5, she is seeing endocrinol ogy and has f/u in a few months. [id number] NOAH Montiel Main Office [address] [place] [address] 09/14/2015 11:30:27 09/14/2015 12:00:08 Acute upper respiratory infection 10531509 J06.9 Patient has been ill x 7-8 days, high risk due to smoking/ DM, will treat for possible bacterial infection. Symptomati c treatment- lots of fluids, rest, tea with honey, OTC cough drops/ cough med as needed, humidifier as needed. [id number] Gerda Osullivan PA-C Main Office [address] [address] [place] [address] 10/05/2015 15:10:58 10/05/2015 15:48:28 Administration of diphtheria and tetanus vaccine 45687670 Z23 Burn of foot 09829642 T2 5.122A L. foot First degree burn with single blister. Pt. will apply Silvadene cream and cover with large sterile dressing until wound heals changing it daily. Tdap will be administer ed today. If any signs of infection , return to clinic immediatel y. [id number] Al spain MD Main Office [address] [address] [place] [address] 12/11/2015 14:45:53 12/11/2015 16:31:57 Adult health examination 336193082 Z00.00 Type 1 magdy betes mellitus 43386531 E10.29 Essential hypertension 27130094 I10 Sinusitis 04102647 J32.9 [id number] Gerda Osullivan PA-C Main Office [address] [address] [place] [address] 02/22/2016 14:37:43 02/22/2016 15:20:54 Closed fracture finger metacarpal 276222903 S62.309A Nondiplace d fracture of the R. 5th MCP. Pt. has binu with an ortho in 3 days. IN the mean time with pain and in temporary splint. Will cover for pain meds until see ortho. [id number] Al spain MD Main Office [address] [address] [place] [address] 05/11/2017 14:13:55 05/11/2017 16:01:57 Partial thickness burn 861630585 T14.8 [id number] Al spain MD Main Office [address] [address] [place] [address] 09/19/2017 10:37:48 09/19/2017 11:29:16 Adult health examination 864755657 Z00.00 Type 1 magdy betes mellitus 86358771 E10.29 Essential hypertension 38854350 I10 Needs infl uenza immunization 479593255 Z23 Allergic rhinitis 162154 04 J30.9 [id number] Al spain MD Main Office [address] [address] [place] [address] 10/10/2017 11:58:39 10/10/2017 12:40:12 Rib pain 961492815 R07.81 Cough 10225718 R05 [id number] Al spain MD Main Office [address] [address] [place] [address] 01/08/2018 09:23:16 01/08/2018 09:50:03 [id number] Al spain MD Main Office [address] [address] [place] [address] 01/09/2018 10:37:17 01/09/2018 11:22:07 Pain in coccyx 99208922 M53.3 Rectal pain 00391377 K62 .89 [id number] Gerda Osullivan PA-C Main Office [address] [address] [place] [address] 11/05/2018 15:12:39 11/05/2018 16:41:51 Type 1 diabetes mellitus 56805703 E10.9 Switch to using CGM for testing. Return with results on 2-4 weeks. Continue current meds. All Meds refilled. Needs infl uenza immunization 100288461 Z23 Hyperlipidemia 60139388 E78.00 repeat fasting labs. Contusion of rib 1126211 06 S20.20XA Continue OTC meds , supplement with Tramadol as needed. Allergic rhinitis 435307 04 J30.9 [id number] Mitchell Bonner MD Main Office [address] [address] [place] [address] 03/30/2019 10:55:50 03/30/2019 12:22:33 Allergic rhinitis 28911957 J30.9 Type 1 magdy betes mellitus 20375732 E10.9 Switch to using CGM for testing. refer to endocrinol ogist for diabetes management . Use of insulin pump should be considered . Repeat all labs. Proliferat alirio retinopathy due to diabetes mellitus 26791264 E11.3599 see ophthalm. as scheduled. Essential hypertension 29233578 I10 BP is elevated past 2 visits on Lisinopril 5. Will double the dose. Peripheral vascular disease 813021566 I73.9 [facility] Hyperlipidemia 12514845 E78.00 repeat fasting labs. [id number] Dat Reece MD Main Office [address] [address] [place] [address] 05/23/2019 13:43:13 05/23/2019 14:44:14 [id number] Dat Reece MD Main Office [address] [address] [place] [address] 05/24/2019 14:36:01 05/24/2019 15:57:35 Essential hypertension 19461794 I10 Mixed hyperlipidemia 267 964712 E78.2 Myocardial infarction 22 994336 I21.9 She had a cath done and needs a CABG which will be scheduled after her A1C improves. Proliferat alirio retinopathy due to type 1 diabetes mellitus 0956985415 9101 E10.3591 She will return in 2 weeks and we will recheck her A1C. 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 Myocardial infarction 22 197573 I21.9 Follows cardiology yearly Peripheral vascular disease 067110690 I73.9 Follows vascularGe tting ASAEL Jan 22 Adult heal th examination 089454111 Z00.00 Patient was counseled on healthy diet, exercise and nutrition due to Body mass index is 24.4kg/m . Last Colonoscop y:Date:Res ult:Plan: referral provided over due Last Mammogram: Date:Resul t:Plan: tells me she gets mammogram/ mri every 6 months, will try to get records. Last Pap smearDate: Result:Loretta n: Last was 10yr ago, referral provided. Vaccines:T dAP: 10/05/15Zos ter: declined aware risk.PCV13 : Not dpoICZQ94: 11/13/09In fluenza: declined, understand s risk.Covid : 08/07/21, 08/30/21 Routine labs today Immunizati on status reviewed. Will screen based on risk factors. Regular dental and ophtho care advised as well as seat belt and sunscreen use. Distracted driving discussed. Medication reconciled . Screening for malignant neoplasm of cervix 902085155 Z12.4 Screening for malignant neoplasm of colon 309086883 Z12.11 Type 1 magdy dee mellitus 02792204 E10.9 - Patient advised regarding risks/sign s/symptoms of hypoglycem ia. Counseled to carry a snack in case of emergencie s- Advised to check fingerstic k glucose at home, has justice.- Dental visit- Podiatry, advised podiatry follow up.- Ophthalmol ogy, advised yearly follow up.-Follow s [facility], last a1c 8.1 Abnormal l iver function 31610547 K76.89 Had blood work done in Endo noted elevated BP will get additional lab an RUQ sonogram. Essential hypertension 20780594 I10 2 reading bp elevated would not allow me to increase meds, tell me BP at home wnl.She tells me she will reach out to cards herself.as ymptomatic , understand s risk of elevated bp. [id number] Catina Horta MD Main Office [address] [facility] [address] [facility] [place] [address] 10/30/2021 09:50:14 10/30/2021 11:10:26 Low back pain 693939588 M54.50 Could no tolerate morphine, advised to discard at pharmacy prior to filling tramadol. Risk of sedation and resp. depression advised.Ad vised to try MSK relaxant first if no improvemen t she was told to start tramadol.I f pain persists she was advised she can follow PSSP to determine if further dx test/imagi ng an tx needed. Pain of ri ght hip joint 6243635235 45988 M25.551 Analgesic per above.She was very concerned sx more from hip and noted it Popped Transition of care from emergency department to self-care 5973548676 96129 Z76.89 ED notes and imaging reviewed.P atient presented as had very difficult time getting out of bed. [id number] Catina Horta MD Telehealt h [address] [facility] [address] [facility] [place] [address] 03/07/2022 18:27:30 03/10/2022 08:23:23 COVID-19 529838144 U07.1 OTC analgesic in caution for pain or fever q6h advised given elevated lft.Throat Lozenges,s altwater gargle,tanvi quate hydration enforced,s anna sprays,hum idifier use enforced.P axlovid standard dose called into pharm of choice, checked renal function in pvix 11/18/21,T essalotaylor kate called in 100mg tid q8hr prn coughHoney prn for coughAdvis ed if any difficulty breathing or drop in pulse px of 90 or Tmax of 103 then to go to ED. 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 she did not have an XR of the lower leg where she has pain. Swelling and pain continue. will check XR tib/fib and have patient use a walking boot for comfort/ support.Katerina e cannot take tylenol/ ibuprofen due to her liver function. Will tx with tramadol as needed- no driving or alcohol with med. [id number] [facility] [address] [address] [place] [address] 07/04/2022 13:26:49 07/07/2022 13:40:23 Diabetic foot ulcer 129158399 E13.621 [id number] Catina Horta MD Main Office [address] [place] [address] 08/08/2022 14:45:41 08/08/2022 16:39:53 Upper respiratory infection 56350508 J06.9 - on going for the last two week, no improvemen t with clindamyci n will get CXR as she was coughing extensivel y in office.- performed flu swab- Covid pcr from neg per pt.- ordered a chest x-ray since there has been no improvemen t with the symptoms- switched from clindamyci n to doxycyline monohydrat e 100mg BID for 10 days, aware to take with meals that do not contain calcium and to stay away from sunlight.- will also give a short course of steroids to help with SOB - advised to monitor glucose increase insulin unit by 1-2.- to help with the cough, ordered guaifenesi n- c/w flonase and nasal spray- Throat Lozenges, salt water gargle, adequate hydration enforced, saline sprays, humidifier use enforced, honey also advised. Cardiomyopathy 21766715 I42.9 - ecg NSR with PVCs- asymptomat ic- pt to follow with cardiology -ecg sent to cards to compare as she tells me she was told she has an arrhythmia . She was advise if sx go to ED [id number] Catina Horta MD Main Office [address] [place] [address] 09/02/2022 13:45:27 09/02/2022 14:29:52 Essential hypertension 03475362 I10 2 reading bp elevated would not allow me to increase meds, tell me BP at home wnl.She tells me she will reach out to cards herself.BP today well controlled will hold adjustment . Low sodium diet discussedC ounseled on medication adherenceC ounseled on diet/exerc ise Peripheral vascular disease 140393506 I73.9 Follows vascularwa s supposed to get ASAEL Jan 22, missed will order follow up. 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 Allergic rhinitis 349916 04 J30.9 Needs infl uenza immunization 997784711 Z23 [id number] Catina Horta MD Main Office [address] [place] [address] 10/14/2022 13:59:29 10/14/2022 14:52:53 Rib pain 113638308 R07.81 Rib contusion. Has incentive spirometry , advised to use.Notes hurts to breath.Arnulfo l get xr to eval for fx.tramado l for pain. [id number] Sravanthi castro MD [facility] [address] [place] [address] 11/09/2022 14:43:33 11/18/2022 15:10:48 COVID-19 872942601 U07.1 dx with positive test yesterday, symptoms for 2 days, no renal impairment and pt is not sob. treat as below, multiple comorbidit ies. Cardiomyopathy 87163328 I42.9 Essential hypertension 46684823 I10 on meds. Proliferat alirio retinopathy due to type 1 diabetes mellitus 1845234168 9101 E10.3591 type 1DM [id number] Gerda Osullivan PA-C Main Office [address] [place] [address] 11/19/2022 11:19:19 11/19/2022 12:08:35 Post-acute COVID-19 6596725045 U09.9 Acute sero us otitis media of left ear 1965287437 267997 H65.02 begin doxycyclin e 100 mg BID for 10 days plus probiotics . Ear drops as directed. Diarrhea 43142341 R19.7 check electrolyt e and CBC 127170 Dat Reece MD Main Office [facility] [address] [place] [address] 12/08/2022 13:53:22 12/08/2022 15:01:11 Fever 459949062 R50.9 Secondary to influenza A. NSAIDs prn, fluids and rest. OOW for the rest of this week. Cough 92757460 R05.9 Possibly multifacto rial and related to the flu, PND and post-COVID . Influenza caused by Influenza A virus 809329300 J09.X2 OOW work for a week and advised rest, tamiflu and fluids. [id number] Catina Horta MD Main Office [address] [place] [address] [place] [address] 12/22/2022 13:20:44 12/22/2022 14:44:52 Adult health examination 375518887 Z00.00 Patient was counseled on healthy diet, exercise and nutrition due to Body mass index is 24 kg/m . Last Colonoscop y:Date:Res ult:Plan: referral provided over due Last Mammogram: Date: 07/24/21Res ult:Plan: tells me she gets mammogram/ mri every 6 months, will try to get records.at [facility]. Last Pap smearDate: Result:Loretta n: Last was 10yr ago, referral provided. Vaccines:T dAP: 10/05/15Zos ter rec: script provdedPCV 20: Not [id number]: 11/13/09In fluenza: 12/22/22Cov id: 08/07/21, 08/30/21, bivalent advised. Routine labs today Immunizati on status reviewed. Will screen based on risk factors. Regular dental and ophtho care advised as well as seat belt and sunscreen use. Distracted driving discussed. Medication reconciled . Type 1 magdy betes mellitus 58795098 E10.9 - Patient advised regarding risks/sign s/symptoms of hypoglycem ia. 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 Myocardial infarction 22 542039 I21.9 Follows cardiology yearlylipi ds by cardiology . Peripheral vascular disease 124781535 I73.9 Follows vascularGe tting ASAEL Jan 22 Screening for malignant neoplasm of cervix 855096764 Z12.4 Abnormal l iver function 83993419 K76.89 repeat labs done with cards in 09/20 with lft returning to baseline. Essential hypertension 14003241 I10 2 reading bp elevated would not allow me to increase meds, tell me BP at home wnl.She tells me she will reach out to cards herself.as ymptomatic , understand s risk of elevated bp. Advised to take dialy and follows card.BP quite labile. Will have monitor and follow over tele.Low sodium diet discussedC ounseled on medication adherenceC ounseled on diet/exerc iseAdvised to keep BP daily BP log and technique counseled. Red flags of HTN emergency discussed and when to go to ED. Secondary polycythemia 31896327 D75.1 Needs infl uenza immunization 289831878 Z23 Varicella vaccination 68 279707 Z23 Cardiomyopathy 84867422 I42.9 [id number] Catina Horta MD Main Office [address] [address] [place] [address] 01/09/2023 15:36:50 01/09/2023 16:09:32 Essential hypertension 89906971 I10 Hope bp average still elevated agreed to go up on ariel.Will follow up in 1 mo, may need to add hctz, repeat renal function once bp better controlled .Advised to also let her cards know.Low sodium diet discussedC ounseled on medication adherenceC ounseled on diet/exerc iseAdvised to keep BP daily BP log and technique counseled. Red flags of HTN emergency discussed and when to go to ED. [id number] CEASAR OTOOLE MD Main Office [address] [address] [place] [address] 01/29/2023 11:16:23 01/29/2023 11:42:01 Fracture of rib 55879592 S22.31XA - pt has a fracture at the right 9th rib- pt advised to continue to use the spirometer - to help with the pain pt was provided with oxycodone 5mg TID as needed for the next 7 days (NO REFILLS, pt made aware)- ED precaution s given Transition of care from emergency department to self-care [id number] Z76.89 - reviewed hospital documents [id number] Catina Horta MD Main Office [address] [address] [place] [address] 03/23/2023 14:58:50 03/23/2023 16:13:29 Essential hypertension [id number] I10 Home bp average still elevated agreed to add hctz, repeat renal function 1 mo.Will follow up bp 6 weeks.Advi sed to also let her cards know.Low sodium diet discussedC ounseled on medication adherenceC ounseled on diet/exerc iseAdvised to keep BP daily BP log and technique counseled. Red flags of HTN emergency discussed and when to go to ED. Bone density finding [id number] M85.89 [id number] Edouard Ellis MD Main Office [address] [address] [place] [address] 04/09/2023 13:03:56 04/09/2023 14:01:19 Acute upper respiratory infection [id number] J06.9 Pt is here with what seems to be a viral URI vs allergies. Management /treatment options are limited between her allergies and what she understand s as as contraindi cations because of her history of heart and liver disease (none of which are documented in cardiology notes). Nasal saline advised and inb/worse after a week of supportive treatment then CXR or treatment for possible bacterial sinusitis may be warranted. [id number] Catina Horta MD Main Office [address] [place] [address] 06/10/2023 15:31:51 06/13/2023 08:13:50 Essential hypertension 16115654 I10 Blood pressure controlled with current regimen. She was reminded that she needs to get her lab work done and the risk of not doing so (this includes but not limited to affecting her renal function and electrolyt es). For now, we will continue with this regimen in addition to lifestyle modificati on, this includes but not limited to low-salt diet, regular exercises and caffeine intake in moderation . [id number] Catina Horta MD Main Office [address] [place] [address] 01/20/2024 15:38:51 01/25/2024 13:29:09 Essential hypertension 58750584 I10 Bp controlled on current regimen.Wi ll cont. with current regimen, follow up in . [id number] Catina Horta MD Main Office [address] [place] [address] 09/27/2024 10:57:41 09/27/2024 12:10:22 Adult health examination [id number] Z00.00 Patient was counseled on healthy diet, exercise and nutrition due to Body mass index is 24.4 kg/m . Last Colonoscop y:Date:Res ult:Plan: referral provided over due Last Mammogram: Date: 07/24/21Res ult:Plan: tells me she gets mammogram/ mri every 6 months, will try to get records.at [facility] center. Over due. Last Pap smearDate: Result:Loretta n: referral provided. Vaccines:T dAP: 10/05/15Zos ter rec: script provided [id number] : script providedPP SV23: 11/13/09In fluenza: 09/27/24Co vid: encourage updated vaccine Routine labs today Immunizati on status reviewed. Will screen based on risk factors. Regular dental and ophtho care advised as well as seat belt and sunscreen use. Distracted driving discussed. Medication reconciled . Type 1 magdy betes mellitus 43810147 E10.9 - Patient advised regarding risks/sign s/symptoms of hypoglycem ia. 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 Myocardial infarction 22 722198 I21.9 Follows cardiology yearlylipi ds by cardiology . Peripheral vascular disease 041872574 I73.9 Follows vascular Screening for malignant neoplasm of cervix 984660499 Z12.4 Essential hypertension 14173480 I10 bp well controlled . Secondary polycythemia 83976574 D75.1 Needs infl uenza immunization 558714786 Z23 Varicella vaccination 68 588108 Z23 Cardiomyopathy 50131045 I42.9 Follows cardiology Administra tion of pneumococcal vaccine 27809296 Z23 Alkaline p hosphatase above reference range 419102089 R74.8 [id number] Dat Reece MD Main Office [address] [place] [address] 10/13/2024 14:11:41 10/13/2024 14:47:50 Left flank pain 392664343 R10.9 reviewed hospital documentat ion-[place] [facility] [place]p t reports similar to previous kidney stones-CT scan was negative for any acute process, urinalysis -negative, and no signs of MERRICK-determ ined to be musculoske letal in nature given hx and characteri stics-was given tylenol and lidocaine patches-na usea has resolved since discharge- reports pain is still present since discharge> triggered with certain movements and tender to palpation- no bruising, swelling-p t denies of any known trauma>rep orts she stepped out of her car and felt immediate low back pain-will provide muscle relaxant and discussed to continue with conservati ve measuremen ts Chronic ki dney disease stage 1 965499615 N18.1 Hypertensi ve renal disease 74586618 I12.9 in office BP of 134/66-c/w current regimen Low back strain 12136448 1 S39.012D -low back pain triggered with stepping out of her car-has tried OTC medication s with minimal relief>tri ggered with certain movements and tender to palpation- no bruising, swelling-p t denies of any known trauma-lik doni related to a muscle strain-pro vided muscle relaxant; understand s no alcohol intake or driving while on medication s [id number] Dat Reece MD Main Office [address] [facility] [address] [place] [address] 10/02/2025 08:45:40 10/02/2025 09:31:03 Adult health examination 260128622 Z00.00 Patient was counseled on healthy diet, exercise and nutrition due to Body mass index is 22.9 kg/m . Last Colonoscop y:Date: 05/13/2022 esult: negativeDu e: 2031 Last Mammogram: Date: 07/24/21 ult: Last Pap smearDate: Result:Loretta n: referral provided. Vaccines:T dAP: 08/22/2025Z alecia rec: script provided [id number] : script providedPP SV23: 11/13/09In fluenza: 09/27/24Co vid: encourage updated vaccine Routine labs today Immunizati on status reviewed. Will screen based on risk factors. Regular dental and ophtho care advised as well as seat belt and sunscreen use. Distracted driving discussed. Medication reconciled Type 1 magdy betes mellitus 12636386 E10.9 - Patient advised regarding risks/sign s/symptoms of hypoglycem ia. 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 Myocardial infarction 22 782058 I21.9 Follows cardiology yearlylipi ds by cardiology . Peripheral vascular disease 004713736 I73.9 Follows vascular Screening for malignant neoplasm of cervix 714337265 Z12.4 Essential hypertension 80235591 I10 At goal-in office BP of 120/62-c/w current regimen Secondary polycythemia 74418368 D75.1 Cardiomyopathy 37463928 I42.9 Follows cardiology Screening for malignant neoplasm of breast 125454407 Z12.39 Health Concerns Section Related Observation LastModified by Organization Detai ls LastModified Time None Recorded Concern Status LastModified by Organization Details LastModified Time None Recorded Advance Directives Directive Y: Payers Insurance Date Sequence Insurance Name Policy Number Policy Dickinson Covered Member ID Dickinson Member ID Guarantor Name 10/02/2025 1 [employer] (PPO) [id number] 77 Tawanda Templeton Farrukh [id number] Iona Chadwick 11/10/[address] [facility] [id number] 01 Tawanda Chadwick [id number] Iona Chadwick 10/02/2025 2 [place] [employer] Iona Momin Farrukh [id number] Iona Chadwick 10/02/2025 3 [place] [facility] Iona Chadwick [id number] Iona Chadwick Notes Date Note Type Note Provider Name and Address Organization Details Recorded Time 3 text/html Hypertension F/UReported by PatientHPIFor associated symptoms, patient reportsno dizziness,no lightheadedness,no chest pain,no shortness of breath,no palpitations,no edema, andno calf pain with exertion. For lifestyle, patient reportsregular exerciseandlimiting/avoi ding salt(walks 20,000 step.). For medications, patient reportstaking medications as directed,no side effects from medication, andchecks blood pressure at home, range: (under 130/90).Here for blood pressure follow-up. After adding hydrochlorothiazide to her regimen her blood pressure has remained under 130/90. 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
== END 2025-11-15 16:23 | disposition home or self-care (01) ==
PROVIDERS: PCP Family Medicine; Visit Provider Physician Assistant Medical
DX: S93.401A Sprain of unspecified ligament of right ankle, initial encounter (principal)

== ENCOUNTER 2025-11-15 15:15 | Outpatient (REF) | payer OTHER, MEDICARE, MEDICAID, SELFPAY ==
--- NOTE | ~2025-11-15 | XR_ITS ---
EXAMINATION: XR ANKLE, RIGHT CLINICAL INFORMATION: M25.571 - Pain in right ankle and joints of right foot COMPARISON: None available. TECHNIQUE: AP, lateral, and mortise views of the right ankle. FINDINGS: No fracture, dislocation, or suspicious bone lesion. Normal bone mineralization. Normal alignment. The mortise is intact. The talar dome is normal. The subtalar joints and calcaneus appear normal. Joint spaces are preserved. No significant arthropathy. No significant ankle joint effusion. There is mild medial soft tissue swelling. There are vascular calcifications in the soft tissues. XR/XR ankle RT min 3V IMPRESSION: 1. Medial soft tissue swelling. No underlying bony abnormalities. Electronically signed by: Tyrone Vail MD 11/15/2025 04:08 PM AMBER MATTHEW
== END 2025-11-15 15:16 | disposition home or self-care (01) ==
LOC: HO.HMGCX 15:15
PROVIDERS: PCP Family Medicine; Visit Provider Physician Assistant Medical
DX: S93.401A Sprain of unspecified ligament of right ankle, initial encounter (principal); W18.40XA Slipping, tripping and stumbling without falling, unspecified, initial encounter; Y93.89 Activity, other specified; Y92.89 Other specified places as the place of occurrence of the external cause; Y99.9 Unspecified external cause status
CPT/HCPCS: 73610

== ENCOUNTER → 2025-11-15 15:53 | Outpatient (BNV) | payer OTHER, MEDICARE, MEDICAID, SELFPAY | PROVIDERS: PCP Family Medicine; Visit Provider Radiology Diagnostic Radiology | DX: M79.89 Other specified soft tissue disorders (principal) | CPT/HCPCS: 73610 ==